=== PATIENT | male | born 1960 | race Caucasian/White ===

== ENCOUNTER 2021-06-10 20:51 | Inpatient (IN) ==
[2021-06-10 21:18] LABS: Hematocrit (blood only) 38.8 % (42-52); Hemoglobin 13.5 g/dL (14.0-18.0); Mean Corpuscular Hemoglobin 30.6 pg (25-34); Mean Corpuscular Hgb Conc 34.8 g/dL (32-36); Mean Platelet Volume 9.5 fL (7.4-10.4); Platelet Count 255 K/uL (130-400); RDW Coefficient of Variation 12.7 % (11.5-14.5); RDW Standard Deviation 40.7 fL (36.4-46.3); Red Blood Count 4.41 M/uL (4.7-6.1); White Blood Count 18.74 K/uL (4.8-10.8)
[2021-06-10 21:28] LABS: INR 1.1 (0.9-1.1); Partial Thromboplastin Time 26.2 Seconds (21.0-31.0); Prothrombin Time 11.4 Seconds (9.0-12.0)
[2021-06-10 21:32] LABS: Basophils # (auto) 0.03 K/uL (0-0.2); Basophils % (auto) 0.2 %; Eosinophils % (auto) 1.6 %; Immature Granulocytes # (auto) 0.32 K/uL (0.00-0.02); Immature Granulocytes % (auto) 1.7 %; Lymphocytes # (auto) 0.61 K/uL (1.2-3.4); Lymphocytes % (auto) 3.3 %; Monocytes # (auto) 1.11 K/uL (0.11-0.59); Monocytes % (auto) 5.9 %; Neutrophils # (auto) 16.37 K/uL (1.4-6.5); Neutrophils % (auto) 87.3 %; Polychromasia 1+
[2021-06-10] MEDS ORDERED: dexAMETHasone**PF** 10 MG/ML VIAL IV ONE (21:33)
[2021-06-10 21:39] LABS: Troponin I < 0.03 ng/ml (0-0.04)
[2021-06-10 21:45] LABS: Alanine Aminotransferase 18 U/L (7-52); Albumin Globulin Ratio 0.9 (0.9-2); Albumin Level 3.3 gm/dl (3.4-5.0); Alkaline Phosphatase 77 U/L (34-104); Anion Gap 13 (3-11); Aspartate Aminotransferase 22 U/L (13-39); BUN Creatinine Ratio 26.1 (10-20); Bilirubin,Total 0.7 mg/dl (0.2-1.0); Blood Urea Nitrogen 18 mg/dl (6-23); Calcium 9.4 mg/dl (8.5-10.1); Carbon Dioxide 21 mmol/L (21-32); Chloride 98 mmol/L (98-107); Creatinine Clr Calc Pharmacy 116.1 ml/min; Est GFR (African American) 118.8 ml/min; Est GFR (Non-African American) 102.5 ml/min; Globulin 3.8 gm/dl (2.5-4.0); Glucose 116 mg/dl (70-99(Fasting)); Magnesium 1.4 mg/dl (1.7-2.4); Potassium 4.2 mmol/L (3.5-5.1); Sodium 132 mmol/L (136-145); Total Protein 7.1 gm/dl (6.0-8.3)
[2021-06-10] MEDS ORDERED: SODIUM CHLORIDE 0.9% 1000ML 1,000 ML IV SCH (22:30)
--- NOTE | 2021-06-10 23:00 | Emergency Department Note ---
History of Present Illness General Chief complaint: Referred by Doctor Stated complaint: SOB, COUGH, PNEUMONIA, BERNARD JACQUES PRICE RFRD Time Seen by Provider: 06/10/21 21:13 Source: patient Mode of arrival: ambulatory Limitations: no limitations History of Present Illness Provider complaint: Shortness of breath, recent pneumonia Onset (ago): day(s) 10 Treatments prior to arrival: other This is a 61-year-old male who presents due to concern for persistent shortness of breath and cough. Patient states his symptoms began 10 days ago, and he called his PCP was started on a course of azithromycin. Patient states he completed that course without improvement. He states after this he was placed on a second antibiotic and a course of steroids. Patient states he finished the course of steroids and was still taking the antibiotics but did not feel improved. Patient states symptoms feel similar to when he had pneumonia previously given cough and shortness of breath. Patient denies hemoptysis. States initially had mild URI symptoms including nasal congestion and rhinorrhea however no sore throat, denies fevers and chills. He denies any GI symptoms including nausea, vomiting, abdominal pain, or diarrhea. Patient admits to slight chest tightness although no overt pain. Patient is vaccinated against Covid. Did not receive his vaccination for influenza. Patient denies any prior history of asthma or COPD, no history of tobacco abuse. Patient does not wear home oxygen. Pt seen during a time of high acuity and national emergency pandemic while wearing PPE. Home Medications Medication Instructions Recorded Confirmed Type aspirin 81 mg tablet,delayed 81 mg PO QAM 06/10/21 06/10/21 History release benzonatate 100 mg capsule 200 mg PO TID PRN 06/10/21 06/10/21 History carvedilol 6.25 mg tablet 6.25 mg PO BID 06/10/21 06/10/21 History cefuroxime axetil 500 mg tablet 500 mg PO BID 06/10/21 06/10/21 History clopidogrel 75 mg tablet 75 mg PO QAM 06/10/21 06/10/21 History dulaglutide 1.5 mg/0.5 mL 1.5 mg SUBCUT WK 06/10/21 06/10/21 History subcutaneous pen injector (Trulicity) empagliflozin 10 mg tablet 10 mg PO QAM 06/10/21 06/10/21 History (Jardiance) evolocumab 140 mg/mL subcutaneous 140 mg SUBCUT .2XMONTHLY 06/10/21 06/10/21 History pen injector (Celestina Salinas) fluticasone propionate 100 1 inh INHALATION BID 06/10/21 06/10/21 History mcg/actuation blister powder for inhalation (Flovent Diskus) hydroxychloroquine 200 mg tablet 200 mg PO BID 06/10/21 06/10/21 History icosapent ethyl 1 gram capsule 2 g PO BID 06/10/21 06/10/21 History lisinopril 20 mg tablet 20 mg PO QPM 06/10/21 06/10/21 History metformin 500 mg tablet,extended 1,000 mg PO BID 06/10/21 06/10/21 History release 24 hr pantoprazole 40 mg tablet,delayed 40 mg PO QPM 06/10/21 06/10/21 History release Allergies Allergy/AdvReac Type Severity Reaction Status Date / Time No Known Allergies Allergy Unverified 06/10/21 23:30 Past Med/Surg History Medical History (Updated 06/12/21 @ 03:07 by Bonnie Lopez DO) Diabetes GERD (gastroesophageal reflux disease) Family History (Updated 06/11/21 @ 00:13 by Juli Thomas DO) Other No significant family history Social History (Updated 06/11/21 @ 00:14 by Juli Thomas DO) Smoking Status: Never smoker Hx Alcohol Use: Yes Hx Substance Use: No Preferred Language: Persian Communication Ability: Effective Customer Assistance Associate Required: No Beliefs That Will Affect Care: None Current Living Situation: Spouse Feels Safe at Home: Yes Assistive Devices: Oxygen - Continuous Review of Systems A total of 10 systems reviewed and were otherwise negative All systems reviewed & are unremarkable except as noted in HPI & below Physical Exam Vital Signs Vital Signs - 24 hr 06/10/21 20:56 06/10/21 21:05 06/10/21 21:18 Temperature 36.5 C Temperature Source Temporal Artery Scan Pulse Rate 115 H Pulse Rate [Apical] 117 H Pulse Rate from SpO2 Sensor Respiratory Rate 24 22 Respiratory Effort / Characteristics Non-Labored Spontaneous Respiratory Depth Normal Blood Pressure 116/78 Blood Pressure [Right Arm] 135/84 Blood Pressure Mean 90 Blood Pressure Mean [Right Arm] 101 Pulse Oximetry 83 L 84 L 92 Oxygen Delivery Method Room Air Nasal Cannula Nasal Cannula Oxygen Flow Rate 2 6 Sepsis New/Unexplained Change in Mental Status N/A Sepsis Action Taken by Nursing No Action Required 06/10/21 21:20 06/10/21 21:30 06/10/21 21:40 Temperature Temperature Source Pulse Rate 110 H 107 H 103 H Pulse Rate [Apical] Pulse Rate from SpO2 Sensor 109 H 109 H 104 H Respiratory Rate 24 28 H 26 H Respiratory Effort / Characteristics Respiratory Depth Blood Pressure Blood Pressure [Right Arm] Blood Pressure Mean Blood Pressure Mean [Right Arm] Pulse Oximetry 93 91 94 Oxygen Delivery Method Nasal Cannula Oxygen Flow Rate 4.5 Sepsis New/Unexplained Change in Mental Status Sepsis Action Taken by Nursing 06/10/21 21:50 06/10/21 22:00 06/10/21 22:10 Temperature Temperature Source Pulse Rate 104 H 110 H 106 H Pulse Rate [Apical] Pulse Rate from SpO2 Sensor 101 H 106 H 106 H Respiratory Rate 25 H 30 H 29 H Respiratory Effort / Characteristics Respiratory Depth Blood Pressure Blood Pressure [Right Arm] Blood Pressure Mean Blood Pressure Mean [Right Arm] Pulse Oximetry 94 92 90 Oxygen Delivery Method Nasal Cannula Nasal Cannula Oxygen Flow Rate 4.5 4.5 Sepsis New/Unexplained Change in Mental Status Sepsis Action Taken by Nursing 06/10/21 22:20 06/10/21 22:30 06/10/21 22:40 Temperature Temperature Source Pulse Rate 108 H 106 H 106 H Pulse Rate [Apical] Pulse Rate from SpO2 Sensor 110 H 104 H 99 H Respiratory Rate 27 H 29 H 30 H Respiratory Effort / Characteristics Respiratory Depth Blood Pressure Blood Pressure [Right Arm] Blood Pressure Mean Blood Pressure Mean [Right Arm] Pulse Oximetry 93 93 94 Oxygen Delivery Method Nasal Cannula Oxygen Flow Rate 4.5 Sepsis New/Unexplained Change in Mental Status Sepsis Action Taken by Nursing GENERAL: alert, unwell appearing, well nourished, no distress, non-toxic EYE EXAM: normal conjunctiva, PERRL and EOM's grossly intact OROPHARYNX: no exudate, no erythema, lips, buccal mucosa, and tongue normal and mucous membranes are moist NECK: supple, no nuchal rigidity, no adenopathy, non-tender LUNGS: Clear to auscultation. Normal chest wall mechanics, no w/r/r HEART: no murmurs, S1 normal and S2 normal ABDOMEN: abdomen soft, non-tender, normo-active bowel sounds, no masses, no rebound or guarding. BACK: Back is symmetrical on inspection and there is no deformity, no midline tenderness, no CVA tenderness. SKIN: no rashes and no bruising UPPER EXTREMITIES: upper extremities are grossly normal. FROM, nml pulses b/l. LOWER EXTREMITIES: No pitting edema. FROM, nml pulses b/l. NEURO EXAM: Normal sensorium, cranial nerves II-XII grossly intact, normal speech, no gross weakness of arms, no gross weakness of legs. Gross sensation intact. Course Course 2220: Patient maintaining oxygen on 5 to 6 L via nasal cannula. Patient updated on results. Discussed with him need for additional inpatient evaluation and respiratory support. He verbalized understanding. 2252: Case discussed with hospitalist for additional evaluation and management. I did call respiratory and asked them to come trial the patient on high flow nasal cannula given he did have worsening tachypnea despite maintaining oxygenation on nasal cannula. Patient states he does feel short of breath despite oxygen placement and improvement of hypoxia. 2345: Patient reports feeling improved with decreased work of breathing on high flow nasal cannula. Vital signs stable. Administered Medications Aspirin (Aspirin 81 Mg Ectab) 81 mg PO QAM [facility] Stop: 07/11/21 08:59 Last Admin: 06/11/21 07:58 Dose: 81 mg Documented by: [id number] Baricitinib (Baricitinib 2 Mg Tab) 4 mg PO DAILY [facility] Stop: 06/24/21 09:01 Last Admin: 06/11/21 10:09 Dose: 4 mg Documented by: [id number] Carvedilol (Carvedilol 6.25 Mg Tab) 6.25 mg PO BID [facility] Stop: 07/11/21 08:59 Last Admin: 06/11/21 22:36 Dose: 6.25 mg Documented by: [id number] Admin: 06/11/21 08:55 Dose: 6.25 mg Documented by: [id number] Insulin Aspart (Insulin Aspart Per Unit) 0 units SC ACHS [facility] Stop: 07/11/21 07:29 Last Admin: 06/11/21 22:39 Dose: 1 units Documented by: [id number] Cosigned by: [id number] Admin: 06/11/21 12:46 Dose: 4 units Documented by: [id number] Cosigned by: [id number] Admin: 06/11/21 12:24 Dose: 4 units Documented by: [id number] Cosigned by: [id number] Admin: 06/11/21 09:07 Dose: 3 units Documented by: [id number] Cosigned by: [id number] Insulin Glargine (Insulin Glargine Solostar 100 Units/Ml 3 Ml Pen) 5 units SC BID [facility] Stop: 07/11/21 08:59 Last Admin: 06/11/21 22:37 Dose: 5 units Documented by: [id number] Cosigned by: [id number] Admin: 06/11/21 09:08 Dose: 5 units Documented by: [id number] Cosigned by: [id number] Lisinopril (Lisinopril 20 Mg Tab) 20 mg PO QPM [facility] Stop: 07/11/21 20:59 Last Admin: 06/11/21 22:37 Dose: 20 mg Documented by: [id number] Pantoprazole Sodium (Pantoprazole 40 Mg Tab) 40 mg PO QPM [facility] Stop: 07/11/21 20:59 Last Admin: 06/11/21 22:37 Dose: 40 mg Documented by: [id number] Rivaroxaban (Rivaroxaban 15 Mg Tab) 15 mg PO BID [facility] Stop: 07/01/21 21:01 Last Admin: 06/11/21 22:37 Dose: 15 mg Documented by: [id number] Admin: 06/11/21 12:46 Dose: 15 mg Documented by: [id number] Discontinued Medications Clopidogrel Bisulfate (Clopidogrel Bisulfate 75 Mg Tab) 75 mg PO QAM [facility] Stop: 07/11/21 08:59 Last Admin: 06/11/21 07:58 Dose: 75 mg Documented by: [id number] Dexamethasone Sodium Phosphate (DexamethasonePf 10 Mg/Ml Vial) 6 mg IV NOW ONE Stop: 06/10/21 21:34 Last Admin: 06/10/21 21:41 Dose: 6 mg Documented by: [id number] Enoxaparin Sodium (Enoxaparin 80 Mg/0.8 Ml Syr) 80 mg SQ Q12H [facility] Stop: 07/11/21 01:59 Last Admin: 06/11/21 03:32 Dose: Not Given Documented by: [id number] Sodium Chloride (Nss 1000ml) 1,000 mls @ 200 mls/hr IV .Q5H [facility] Stop: 07/10/21 22:29 Last Infusion: 06/11/21 03:24 Dose: 0 mls/hr Documented by: [id number] Admin: 06/10/21 22:23 Dose: 200 mls/hr Documented by: [id number] Magnesium Sulfate/Dextrose (Magnesium Sulfate / D5w) 1 gm in 100 mls @ 50 mls/hr IV Q2H [facility] Stop: 06/11/21 02:03 Last Infusion: 06/11/21 03:22 Dose: 0 mls/hr Documented by: [id number] Admin: 06/11/21 00:55 Dose: 50 mls/hr Documented by: [id number] Ioversol (Optiray 320 125ml) 120 ml IV ONCE ONE Stop: 06/11/21 10:44 Last Admin: 06/11/21 10:43 Dose: 120 ml Documented by: [id number] Critical Care Time Critical Care Time: Yes Total Critical Care Time: 35 Critical care of 35 min performed to assess and manage high likelihood of life- threatening acute respiratory failure with hypoxia, involving labs and imaging performed with assessment to evaluate acute respiratory failure with hypoxia diagnosis with frequent reassessment. This time includes bedside time, treatment discussions with patient/family/consultants, documentation time and excludes procedure time. Medical Decision Making Differential Diagnosis Differential diagnoses includes but is not limited to pneumonia, bronchitis, COPD/Asthma exacerbation, pneumothorax, pulmonary embolism, congestive heart failure, acute coronary syndrome Medical Records Attestation: I reviewed the patient's medical records. Home Medications Current Medication List: was personally reviewed by me Laboratory Data Attestation: I reviewed the patient's lab results. Result diagrams: 06/11/21 05:33 06/11/21 05:33 Lab Results 06/10/21 06/10/21 06/10/21 Range/Units 21:05 21:07 21:07 WBC 18.74 H (4.8-10.8) K/uL RBC 4.41 L (4.7-6.1) M/uL Hgb 13.5 L (14.0-18.0) g/dL Hct 38.8 L (42-52) % MCV 88.0 (80-100) fL MCH 30.6 (25-34) pg MCHC 34.8 (32-36) g/dL RDW Std Deviation 40.7 (36.4-46.3) fL RDW Coeff of Eddie 12.7 (11.5-14.5) % Plt Count 255 (130-400) K/uL MPV 9.5 (7.4-10.4) fL Immature Gran % (Auto) 1.7 % Neut % (Auto) 87.3 % Lymph % (Auto) 3.3 % [place] % (Auto) 5.9 % Eos % (Auto) 1.6 % Baso % (Auto) 0.2 % Neut # (Auto) 16.37 H (1.4-6.5) K/uL Lymph # (Auto) 0.61 L (1.2-3.4) K/uL [place] # (Auto) 1.11 H (0.11-0.59) K/uL Eos # (Auto) 0.30 (0-0.5) K/uL Baso # (Auto) 0.03 (0-0.2) K/uL Immature Gran # (Auto) 0.32 H (0.00-0.02) K/uL Polychromasia 1+ PT 11.4 (9.0-12.0) Seconds INR 1.1 (0.9-1.1) APTT 26.2 (21.0-31.0) Seconds PTT Ratio 1.0 Sodium (136-145) mmol/L Potassium (3.5-5.1) mmol/L Chloride (98-107) mmol/L Carbon Dioxide (21-32) mmol/L Anion Gap (3-11) BUN (6-23) mg/dl Creatinine (0.6-1.4) mg/dl Est Cr Clr Drug Dosing ml/min Est GFR ( Amer) ml/min Est GFR (Non-Af Amer) ml/min BUN/Creatinine Ratio (10-20) Glucose (70-99(Fasting)) mg/dl Calcium (8.5-10.1) mg/dl Magnesium (1.7-2.4) mg/dl Total Bilirubin (0.2-1.0) mg/dl AST (13-39) U/L ALT (7-52) U/L Alkaline Phosphatase (34-104) U/L Troponin I (0-0.04) ng/ml C-Reactive Protein (0-0.5) mg/dl Total Protein (6.0-8.3) gm/dl Albumin (3.4-5.0) gm/dl Globulin (2.5-4.0) gm/dl Albumin/Globulin Ratio (0.9-2) Procalcitonin (0-0.5) ng/ml SARS-CoV-2, RNA, NAAT POSITIVE A* (NEGATIVE) 06/10/21 06/10/21 06/10/21 Range/Units 21:07 23:07 23:07 WBC (4.8-10.8) K/uL RBC (4.7-6.1) M/uL Hgb (14.0-18.0) g/dL Hct (42-52) % MCV (80-100) fL MCH (25-34) pg MCHC (32-36) g/dL RDW Std Deviation (36.4-46.3) fL RDW Coeff of Eddie (11.5-14.5) % Plt Count (130-400) K/uL MPV (7.4-10.4) fL Immature Gran % (Auto) % Neut % (Auto) % Lymph % (Auto) % [place] % (Auto) % Eos % (Auto) % Baso % (Auto) % Neut # (Auto) (1.4-6.5) K/uL Lymph # (Auto) (1.2-3.4) K/uL [place] # (Auto) (0.11-0.59) K/uL Eos # (Auto) (0-0.5) K/uL Baso # (Auto) (0-0.2) K/uL Immature Gran # (Auto) (0.00-0.02) K/uL Polychromasia PT (9.0-12.0) Seconds INR (0.9-1.1) APTT (21.0-31.0) Seconds PTT Ratio Sodium 132 L (136-145) mmol/L Potassium 4.2 (3.5-5.1) mmol/L Chloride 98 (98-107) mmol/L Carbon Dioxide 21 (21-32) mmol/L Anion Gap 13 H (3-11) BUN 18 (6-23) mg/dl Creatinine 0.69 (0.6-1.4) mg/dl Est Cr Clr Drug Dosing 116.1 ml/min Est GFR ( Amer) 118.8 ml/min Est GFR (Non-Af Amer) 102.5 ml/min BUN/Creatinine Ratio 26.1 H (10-20) Glucose 116 H (70-99(Fasting)) mg/dl Calcium 9.4 (8.5-10.1) mg/dl Magnesium 1.4 L (1.7-2.4) mg/dl Total Bilirubin 0.7 (0.2-1.0) mg/dl AST 22 (13-39) U/L ALT 18 (7-52) U/L Alkaline Phosphatase 77 (34-104) U/L Troponin I < 0.03 (0-0.04) ng/ml C-Reactive Protein 18.92 H (0-0.5) mg/dl Total Protein 7.1 (6.0-8.3) gm/dl Albumin 3.3 L (3.4-5.0) gm/dl Globulin 3.8 (2.5-4.0) gm/dl Albumin/Globulin Ratio 0.9 (0.9-2) Procalcitonin 0.20 (0-0.5) ng/ml SARS-CoV-2, RNA, NAAT (NEGATIVE) Imaging Data My Impression: X-ray: I interpreted the following studies. Chest: A single view study of the chest was reviewed and was negative for cardiomegaly, effusion, pulmonary edema, or wide mediastinum. Bilateral lower lobe evolving infiltrates suggestive of pneumonia. MDM Narrative This is a 61-year-old male who presents due to concern for persistent trouble breathing despite 2 outpatient courses of antibiotics for possible pneumonia. Patient with no prior pulmonary history, and is vaccinated against Covid. Patient found to have significant hypoxia here on presentation. Patient started on supplemental oxygen with improvement, however patient continued to feel short of breath. Chest x-ray suggestive of bilateral pneumonia. Patient found to have a leukocytosis and elevated CRP, procalcitonin reassuring. Nasal swab sent and was positive for Covid. This is likely the etiology of the patient's ongoing symptoms and why he did not respond to antibiotics and steroids as an outpatient. Patient was started on IV Decadron. Patient was eventually changed to high flow nasal cannula due to persistent symptoms despite improved oxygenation. Patient denies any recent leg swelling or calf tenderness. I have a lower suspicion for PE at this time. I suspect the leukocytosis is more likely related to the viral process and less likely a secondary bacterial infection, especially given recent antibiotics. No evidence of MARA. Patient started on magnesium supplementation in addition. Patient remained hemodynamically stable while emergency room. He was made aware of all results and was in agreement with plan. Case discussed with hospitalist. An order was placed for continuous cardiac monitoring. The monitor shows a rate of _88_ with _normal sinus_ rhythm. Impression & Plan Acute dyspnea, COVID-19, Acute respiratory failure with hypoxia, Hypomagnesemia Discharge Plan Visit Data Chief Complaint: Referred by Doctor Stated Complaint: SOB, COUGH, PNEUMONIA, BERNARD CRONER PA-C RFRD Discharge Problem: Acute dyspnea, COVID-19, Acute respiratory failure with hypoxia, Hypomagnesemia Patient Disposition: Admitted As Inpatient Discharge Instructions Interventions: ED Discharge Assessment Last Done: 06/11/21 01:15
[2021-06-11] MEDS ORDERED: MAGNESIUM SULFATE / D5W 1 GM/100 ML BAG IV STA (00:04)
--- NOTE | 2021-06-11 00:20 | History & Physical Report ---
Date of Service June 11, 2021 Assessment & Plan (1) COVID-19: Plan: 61yo C male with history of DM presenting with Covid-19 PNA, hypoxia. Patient has received Covid-19 vaccinations x 2, has not yet received booster. He is presenting with 10 days of persistent and progressive cough and SOB. Hypoxic at home to 71%, in the 80's here now with improved respiratory status and saturation on high flow NC 40 L/min, 40% FiO2. CXR with bilateral patchy airspace disease Labs are significant for elevated WBC of 18.74 (recently on steroids), lymphopenia, mild hyponatremia with [id number] Elevated CRP of 18.92 Procalcitonin =0.2 Patient reports recently having the flu in April, feels like he never quite recovered. He also reports having PNA 7x in the past -Admit to medical with telemetry -Check BNP, Ddimer, Ferritin, Fibrinogen and LDH -Repeat Procalcitonin ordered for 06/12/20 AM to aide in decision re: antibiotics -Maintain isolation precautions for Covid-19 -Supplemental O2 as needed - presently on HFNC -Prone positioning encouraged to aide with oxygenation -Dexamethasone 6mg IV daily - dose administered in ER -Baricitinib should patient's O2 requirement increase -Lovenox 1mg/kg BID for DVT ppx -Tylenol PRN pain/fever -Tessalon PRN cough -Zofran PRN nausea -Hold Hydroxychloroquine for now (2) GERD (gastroesophageal reflux disease): Plan: Chronic. Well controlled -Continue Protonix 40mg po daily (3) Diabetes: Plan: Blood sugar adequately controlled at present, 116 -Hold Metformin and Jardiance -Trulicity 1.5mg weekly -Lantus 5u BID -ISS -Consider glycemic management consultation if blood sugars spike with dexamethasone use (4) CAD (coronary artery disease): Plan: ?history of CAD - history not available in chart -Continue ASA, Plavix, Carvedilol and Lisinopril -Confirm history with patient Plan: F/E/N - 1L NSS given in ER, will hold additional fluids for now, encourage PO intake as tolerated. Mg low at 1.4, replete with 2gm IV, CC diet as tolerated Ppx - Lovenox 1mg/kg BID, check d-dimer Code - Full per discussion with patient Dispo - Admit to medical with telemetry History of Present Illness Chief Complaint: shortness of breath Primary Care Provider: DO Taylor Ojedarubi Brush is a pleasant 61yo C male with history of DM presenting with Covid-19 PNA and hypoxia. Patient is vaccinated x 2 for Covid-19. He has not yet received his booster shot. He reports preston influenza in April after which he had a persistent cough. Over the last 10 days he has had worsening cough and shortness of breath. He states that his lungs feel stiff and it is difficult to take a deep breath. Patient contacted his PCP with these complaints last week and was prescribed a Z-pack course of Azithromycin with no improvement. He was then started on Flovent and Cefuroxime. Patient reports having a single fever appx 5 days ago but has not been febrile since. He denies chest pain, nausea, vomiting. He had some mild diarrhea which has improved. No additional complaints at this time. Patient's oxygen saturation was reportedly 71% at home prior to arrival. Upon arrival to the ER patient was found to be tachypneic with RR of 24 saturating 83% on room air. He was placed on supplemental O2 by nasal cannula with mild improvement. Is presently on High Flow Nasal Cannula 40L/min, 40% FiO2. He reports feeling more comfortable, is breathing easier and is less tachypneic on current O2 settings. ER Course: HFNC, Dexamethasone 6mg IV, NSS x 1L Allergies Allergy/AdvReac Type Severity Reaction Status Date / Time No Known Allergies Allergy Unverified 06/10/21 23:30 Home Medications Medication Instructions Recorded Confirmed Type aspirin 81 mg tablet,delayed 81 mg PO QAM 06/10/21 06/10/21 History release benzonatate 100 mg capsule 200 mg PO TID PRN 06/10/21 06/10/21 History carvedilol 6.25 mg tablet 6.25 mg PO BID 06/10/21 06/10/21 History cefuroxime axetil 500 mg tablet 500 mg PO BID 06/10/21 06/10/21 History clopidogrel 75 mg tablet 75 mg PO QAM 06/10/21 06/10/21 History dulaglutide 1.5 mg/0.5 mL 1.5 mg SUBCUT WK 06/10/21 06/10/21 [facility] empagliflozin 10 mg tablet 10 mg PO QAM 06/10/21 06/10/21 History (Jardiance) evolocumab 140 mg/mL subcutaneous 140 mg SUBCUT .2XMONTHLY 06/10/21 06/10/21 History pen injector (Celestina Salinas) fluticasone propionate 100 1 inh INHALATION BID 06/10/21 06/10/21 History mcg/actuation blister powder for inhalation (Flovent Diskus) hydroxychloroquine 200 mg tablet 200 mg PO BID 06/10/21 06/10/21 History icosapent ethyl 1 gram capsule 2 g PO BID 06/10/21 06/10/21 History lisinopril 20 mg tablet 20 mg PO QPM 06/10/21 06/10/21 History metformin 500 mg tablet,extended 1,000 mg PO BID 06/10/21 06/10/21 History release 24 hr pantoprazole 40 mg tablet,delayed 40 mg PO QPM 06/10/21 06/10/21 History release Past Med/Surg History Medical History (Updated 06/11/21 @ 00:30 by Juli Thomas DO) Diabetes GERD (gastroesophageal reflux disease) Family History (Updated 06/11/21 @ 00:13 by Juli Thomas DO) Other No significant family history Social History (Updated 06/11/21 @ 00:14 by Juli Thomas DO) Smoking Status: Never smoker Hx Alcohol Use: Yes Hx Substance Use: No Preferred Language: Bulgarian Feels Safe at Home: Yes Review of Systems Review of Systems: All systems reviewed & are unremarkable except as noted in HPI & below +Cough +SOB Physical Exam Physical Exam: General: patient resting comfortably, NAD, non-toxic in appearance, AA&O x 4 Skin: warm, dry, intact, no rashes or lesions HEENT: NC/AT, PERRL, EOMI, anicteric sclera, conjunctiva without injection, external ear normal to inspection and nontender, nares patent, moist mucus membranes, dentition intact, no oropharyngeal lesions, neck supple, trachea midline, no LAD, no thyromegaly, no JVD Heart: +S1/S2, regular, no m/r/g Lungs: equal air entry bilaterally, no rales/rhonchi/wheezes Abd: +BS, soft, NT/ND, no masses/organomegaly/ascites Ext: warm, 2+ pulses in UE/LE bilaterally, no clubbing/cyanosis or edema Neuro: nonfocal, patient AA&O x 4, speech intact, no facial droop, moving all extremities on command with equal strength 5/5 Results & Data Results & Data ([facility]) Vital Signs (Past 12 Hours) Vital Signs Temp Pulse Pulse Resp BP BP Pulse Ox 06/10/21 23:00 108 H 25 H 118/77 94 06/10/21 22:40 106 H 30 H 94 06/10/21 22:30 106 H 29 H 93 06/10/21 22:20 108 H 27 H 93 06/10/21 22:10 106 H 29 H 90 06/10/21 22:00 110 H 30 H 92 06/10/21 21:50 104 H 25 H 94 06/10/21 21:40 103 H 26 H 94 06/10/21 21:30 107 H 28 H 91 06/10/21 21:20 110 H 24 93 06/10/21 21:18 117 H 22 135/84 92 06/10/21 21:05 84 L 06/10/21 20:56 36.5 C 115 H 24 116/78 83 L Laboratory Results Laboratory Results WBC 18.74 K/uL (4.8-10.8) H 06/10/21 21:07 RBC 4.41 M/uL (4.7-6.1) L 06/10/21 21:07 Hgb 13.5 g/dL (14.0-18.0) L 06/10/21 21:07 Hct 38.8 % (42-52) L 06/10/21 21:07 MCV 88.0 fL (80-100) 06/10/21 21:07 MCH 30.6 pg (25-34) 06/10/21 21:07 MCHC 34.8 g/dL (32-36) 06/10/21 21:07 RDW Std Deviation 40.7 fL (36.4-46.3) 06/10/21 21:07 RDW Coeff of Eddie 12.7 % (11.5-14.5) 06/10/21 21:07 Plt Count 255 K/uL (130-400) 06/10/21 21:07 MPV 9.5 fL (7.4-10.4) 06/10/21 21:07 Immature Gran % (Auto) 1.7 % 06/10/21 21:07 Neut % (Auto) 87.3 % 06/10/21 21:07 Lymph % (Auto) 3.3 % 06/10/21 21:07 Garden % (Auto) 5.9 % 06/10/21 21:07 Eos % (Auto) 1.6 % 06/10/21 21:07 Baso % (Auto) 0.2 % 06/10/21 21:07 Neut # (Auto) 16.37 K/uL (1.4-6.5) H 06/10/21 21:07 Lymph # (Auto) 0.61 K/uL (1.2-3.4) L 06/10/21 21:07 Garden # (Auto) 1.11 K/uL (0.11-0.59) H 06/10/21 21:07 Eos # (Auto) 0.30 K/uL (0-0.5) 06/10/21 21:07 Baso # (Auto) 0.03 K/uL (0-0.2) 06/10/21 21:07 Immature Gran # (Auto) 0.32 K/uL (0.00-0.02) H 06/10/21 21:07 Polychromasia 1+ 06/10/21 21:07 PT 11.4 Seconds (9.0-12.0) 06/10/21 21:07 INR 1.1 (0.9-1.1) 06/10/21 21:07 APTT 26.2 Seconds (21.0-31.0) 06/10/21 21:07 PTT Ratio 1.0 06/10/21 21:07 Sodium 132 mmol/L (136-145) L 06/10/21 21:07 Potassium 4.2 mmol/L (3.5-5.1) 06/10/21 21:07 Chloride 98 mmol/L (98-107) 06/10/21 21:07 Carbon Dioxide 21 mmol/L (21-32) 06/10/21 21:07 Anion Gap 13 (3-11) H 06/10/21 21:07 BUN 18 mg/dl (6-23) 06/10/21 21:07 Creatinine 0.69 mg/dl (0.6-1.4) 06/10/21 21:07 Est Cr Clr Drug Dosing 116.1 ml/min 06/10/21 21:07 Est GFR ( Amer) 118.8 ml/min 06/10/21 21:07 Est GFR (Non-Af Amer) 102.5 ml/min 06/10/21 21:07 BUN/Creatinine Ratio 26.1 (10-20) H 06/10/21 21:07 Glucose 116 mg/dl (70-99(Fasting)) H 06/10/21 21:07 Calcium 9.4 mg/dl (8.5-10.1) 06/10/21 21:07 Magnesium 1.4 mg/dl (1.7-2.4) L 06/10/21 21:07 Total Bilirubin 0.7 mg/dl (0.2-1.0) 06/10/21 21:07 AST 22 U/L (13-39) 06/10/21 21:07 ALT 18 U/L (7-52) 06/10/21 21:07 Alkaline Phosphatase 77 U/L (34-104) 06/10/21 21:07 Troponin I < 0.03 ng/ml (0-0.04) 06/10/21 21:07 C-Reactive Protein 18.92 mg/dl (0-0.5) H 06/10/21 23:07 Total Protein 7.1 gm/dl (6.0-8.3) 06/10/21 21:07 Albumin 3.3 gm/dl (3.4-5.0) L 06/10/21 21:07 Globulin 3.8 gm/dl (2.5-4.0) 06/10/21 21:07 Albumin/Globulin Ratio 0.9 (0.9-2) 06/10/21 21:07 Procalcitonin 0.20 ng/ml (0-0.5) 06/10/21 23:07 SARS-CoV-2, RNA, NAAT POSITIVE (NEGATIVE) A* 06/10/21 21:05 Diagnostic Findings CXR - by my interpretation - study with patchy, bilateral airspace opacities most present in lower lung pelayo No effusions, no pneumothorax ECG Additional Comments: EKG with ST at 111, PVC/fusion complexes present, normal axis, [place]=19, QRS=98. [id number]=[id number] Code Status & VTE Plan VTE Prophylaxis Plan VTE Prophylaxis will be ordered: Yes PG Care Time/CCT Total # of Minutes Spent Total Time Spent with Patient: Total time spent is greater than 50% in coordination of care (as documented) at patient's floor/unit and/or counseling patient: Coding Level of Care Code 80249 Initial Inpt Care Lvl 3 Diagnoses GERD (gastroesophageal reflux disease) K21.9 Diabetes E11.9 COVID-19 U07.1 CAD (coronary artery disease) I25.10
[2021-06-11] MEDS ORDERED: GLUCAGON FOR INJ 1 MG VIAL SQ PRN (01:40)
[2021-06-11] MEDS ORDERED: GLUCOSE 10 TABS/TUBE PO PRN (01:40)
[2021-06-11] MEDS ORDERED: DEXTROSE 50% 50 ML SYRINGE IV PRN (01:40)
[2021-06-11] MEDS ORDERED: CARBOHYDRATES FOR HYPOGLYCEMIA PO PRN (01:40)
[2021-06-11] MEDS ORDERED: ONDANSETRON INJ 2 MG/ML 2 ML VIAL IV PRN (01:40)
[2021-06-11] MEDS ORDERED: ACETAMINOPHEN 325 MG TAB PO PRN (01:40)
[2021-06-11] MEDS ORDERED: GLUCOSE 40% GEL 15 GM TUBE PO PRN (01:40)
[2021-06-11] MEDS ORDERED: BENZONATATE 100 MG CAPSULE PO PRN (01:40)
[2021-06-11] MEDS ORDERED: ENOXAPARIN 80 MG/0.8 ML SYR SQ SCH (02:00)
[2021-06-11 06:08] LABS: Fibrinogen 842 mg/dl (184-400)
[2021-06-11 06:54] LABS: D Dimer 29080 ug/L FEU (0-500)
--- NOTE | 2021-06-11 07:21 | XRay Report ---
XR chest 1V portable CLINICAL HISTORY: Shortness of breath. COMPARISON STUDY: No previous studies for comparison. FINDINGS: Lung volumes are normal. No pneumothorax or pleural effusion is present. Mild cardiomegaly is noted. Moderate bilateral airspace opacities are present. There is no evidence for pulmonary edema . Both ally are enlarged. IMPRESSION: 1. Moderate bilateral airspace opacities suggestive of viral pneumonia. Radiographic follow-up to ens ure resolution is recommended. 2. Bilateral hilar enlargement. This may be due to reactive lymphadenopathy but should be assessed on follow-up chest radiographs. ACT 112: Negative or not required by law. Electronically signed by: Simone Alejandre M.D. 06/11/2021 7:20 AM
[2021-06-11] MEDS: ASPIRIN 81 MG ECTAB PO SCH (07:58)
[2021-06-11] MEDS ORDERED: BARICITINIB COMMUNICATION ONE (08:39)
[2021-06-11] MEDS: carvediloL 6.25 MG TAB PO SCH ×2 (08:55→22:36)
[2021-06-11] MEDS ORDERED: CLOPIDOGREL BISULFATE 75 MG TAB PO SCH (09:00)
[2021-06-11] MEDS: INSULIN ASPART PER UNIT SC SCH ×4 (09:07→22:39)
[2021-06-11] MEDS: INSULIN GLARGINE SOLOSTAR 100 UNITS/ML 3 ML PEN SC SCH ×2 (09:08→22:37)
[2021-06-11 10:02] LABS: Albumin Globulin Ratio 0.9 (0.9-2); BUN Creatinine Ratio 37.9 (10-20); Bilirubin,Total 0.5 mg/dl (0.2-1.0); Creatinine Clr Calc Pharmacy 121.4 ml/min; Est GFR (African American) 120.9 ml/min; Est GFR (Non-African American) 104.3 ml/min; Globulin 3.4 gm/dl (2.5-4.0); Magnesium 1.9 mg/dl (1.7-2.4); Phosphorus 4.9 mg/dl (2.5-4.9); Potassium 4.4 mmol/L (3.5-5.1); Total Protein 6.4 gm/dl (6.0-8.3)
[2021-06-11] MEDS: BARICITINIB 2 MG TAB PO SCH (10:09)
[2021-06-11 10:24] LABS: Basophils # (auto) 0.01 K/uL (0-0.2); Basophils % (auto) 0.1 %; Hematocrit (blood only) 36.3 % (42-52); Hemoglobin 12.6 g/dL (14.0-18.0); Immature Granulocytes # (auto) 0.18 K/uL (0.00-0.02); Immature Granulocytes % (auto) 2.1 %; Lymphocytes # (auto) 0.58 K/uL (1.2-3.4); Lymphocytes % (auto) 6.7 %; Mean Corpuscular Hemoglobin 30.3 pg (25-34); Mean Corpuscular Hgb Conc 34.7 g/dL (32-36); Mean Corpuscular Volume 87.3 fL (80-100); Mean Platelet Volume 9.4 fL (7.4-10.4); Monocytes # (auto) 0.34 K/uL (0.11-0.59); Neutrophils # (auto) 7.49 K/uL (1.4-6.5); Neutrophils % (auto) 87.1 %; Platelet Count 216 K/uL (130-400); RDW Coefficient of Variation 12.8 % (11.5-14.5); RDW Standard Deviation 41.3 fL (36.4-46.3); Red Blood Count 4.16 M/uL (4.7-6.1)
[2021-06-11] MEDS ORDERED: OPTIRAY 320 125ml IV ONE (10:43)
--- NOTE | 2021-06-11 10:58 | CT Scan Report ---
CT ANGIOGRAM OF THE CHEST CLINICAL HISTORY: Dyspnea. Covid. COMPARISON STUDY: Chest x-ray dated 06/10/2021. TECHNIQUE: Following the IV administration of 120 cc of Optiray 320, CT angiogram of the chest was pe rformed from the upper abdomen to the thoracic inlet utilizing the pulmonary embolus protocol. Images are reviewed in the axial, sagittal, and coronal planes. 3-D MIPS images are created and assessed. I V contrast was administered without complication. A dose lowering technique was utilized adhering to the principles of ALARA. CT DOSE: 539.32 mGycm FINDINGS: Thyroid: Imaged portions of the thyroid gland are normal in size and attenuation. Thoracic aorta: There is mild atherosclerotic calcification of the thoracic aorta, which is normal in caliber and demonstrates standard 3-vessel arch anatomy. No dissection is seen. Pulmonary vasculature: The pulmonary trunk is normal in caliber. There are tiny subsegmental pulmonar y emboli present within peripheral branches of the right and left upper lobe pulmonary arteries. The main and lobar branches are clear. Heart: The heart is enlarged and without pericardial effusion. The coronary arteries are densely calc ified. Lungs and pleural spaces: There is multifocal groundglass consolidation seen throughout both lungs wi th a subpleural and lower lobe predominance. No pleural effusion is identified. The trachea and centr al airways are clear. Mediastinum: There is no mediastinal lymphadenopathy. Jonelle: Clear. Axillae: There is no axillary lymphadenopathy. Upper abdomen: Partially visualized upper abdominal viscera is within normal limits. Skeletal structures: No lytic or blastic bony lesions are seen. IMPRESSION: 1. There are numerous tiny subsegmental pulmonary emboli within branches of the upper lobe pulmonary arteries. 2. The central pulmonary vessels are clear. 3. Multifocal groundglass consolidation seen throughout both lungs is consistent with the reported hi story of a viral pneumonia. Radiographic follow-up to resolution is recommended. 4. Cardiomegaly with advanced coronary artery calcification. ACT 112: Negative or not required by law. Electronically signed by: Brennon Palmer M.D. 06/11/2021 10:56 AM
--- NOTE | 2021-06-11 12:18 | Hospitalist Progress Note ---
Date of Service June 11, 2021 Assessment & Plan (1) COVID-19: Plan: 61yo C male with history of DM presenting with Covid-19 PNA, hypoxia. Patient has received Covid-19 vaccinations x 2, has not yet received booster. He is presenting with 10 days of persistent and progressive cough and SOB. Hypoxic at home to 71%, in the 80's here on admission, improved respiratory status and saturation on high flow NC 40 L/min, 40% FiO2. CXR with bilateral patchy airspace disease Labs are significant for elevated WBC of 18.74 (recently on steroids), lymphopenia, mild hyponatremia with Dg=928 Elevated CRP of 18.92 Procalcitonin =0.2 Patient reports recently having the flu in April, feels like he never quite recovered. He also reports having PNA 7x in the past Has a h/o SLE on HQN D-dimer 29,000 after admission--> CTA Chest shows + bilat numerous subsegmental upper lobe PEs and extensive PNA Now on HFNC 40L and 40% FiO2 -Supplemental O2 as needed - presently on HFNC -Prone positioning encouraged to aide with oxygenation -continue Dexamethasone 6mg IV daily -no role for Remdesevir given prolonged course.7 days -start Baricitinib now that on HFNC and CRP high, no contraindications -Tylenol PRN pain/fever -Tessalon PRN cough -Zofran PRN nausea -Hold Hydroxychloroquine for now -follow CBC, CMP, CRP -add incentive spirometer and flutter valve -no role for abx at this point (2) Pulmonary emboli: Plan: as above, multiple bilat subsegmental PEs on CTA CHest trop neg, proBNP negative, D-dimer 29k start Xarelto 15mg po bid x 21 days and then convert to 20mg po qPM-would continue treatment for 3 months Check venous Dopplers--> negative. If had bleeding issues, would be ok to stop anticoagulation -no need for ECHO as HD stable and BNP, trop neg, ECG no rt heart strain--> not likely to have right heart strain (3) GERD (gastroesophageal reflux disease): Plan: Chronic. Well controlled -Continue Protonix 40mg po daily (4) Diabetes: Plan: Blood sugar adequately controlled, at risk for hyperglycemia due to steroids -Hold Metformin, Trulicity, and Jardiance -Lantus 5u BID -ISS-tighten down a bit with lower CF and CR pt reports A1C usually 6.3% (5) CAD (coronary artery disease): Plan: With a h/o MO in 2008, a total of 11 stents since that time, most recent in 10/2017 No cardiac issues ie angina or exercise intolerance prior to admission Discussed need for anticoagulation with his Bean Weigher, Dr. Edu Yost, at [facility] Presby--> ok to dc Plavix to avoid triple tx -Continue ASA, Carvedilol and Lisinopril on Repatha for cholesterol (6) Acute respiratory failure with hypoxia: Plan: 2/2 covid PNA as above continue suplemental O2 pulm toilet, add nebs prn (7) Hypomagnesemia: Plan: replaced and resolved (8) Metabolic acidosis: Plan: HCO3 down to 18 today, AG 14 Lactate normal could be from mild dehydration? follow, no IVFs to be given due to severe hypoxia and want to keep lungs dry (9) Hyponatremia: Plan: mildly low, Na+ improved today to 133 likely from dehydration Plan: Ppx - transition to Xarelto as above for PE Code - Full per discussion with patient Dispo - continued stay on telemetry Discussed care with his daughter Briana (PCU nurse) on the phone Admission and Anticipated Discharge Date Admission Date: June 11, 2021 Subjective Pt reports feeling better. Is on 40L and 40% FiO2. Denies nausea or vomiting, no diarrhea. Does not feel SOB despite requiring 40L HFNC. No trouble with bleeding in the past. I discussed his care with his Bean Weigher, Dr. Edu Yost from [facility], regarding his DAPT and need for Xarelto-Bean Weigher said ok to stop his Plavix. Discussed bilat subsegmental PEs on CTA Chest and need for AC. Tele with NSR, rates 80-100s Review of Systems Review of Systems: All systems reviewed & are unremarkable except as noted in HPI & below Physical Exam Constitutional: WD/WN, vitals as above Eyes: + anicteric sclerae ENMT: external ear and nose normal, oropharynx normal Neck: trachea midline, no thyromegaly Respiratory: normal respiratory effort; no cough Auscultation: + diminished lung sounds (throughout ) and + crackles (bilat lower lung pelayo); no rhonchi and no wheezes Cardiovascular: RRR, no murmur, no edema Chest (Breasts): Chest: normal inspection of chest Gastrointestinal (Abdomen): normal bowel sounds, soft, nontender, no he patosplenomegaly Musculoskeletal: Extremities: extremities normal to inspection; no cyanosis and no clubbing Skin: no rashes, warm and dry Neurologic: moves all extremities and awake; no focal motor deficits Psychiatric: A+Ox3, euthymic affect Lymphatic: no lymphedema Results & Data Results & Data ([facility]) Vital Signs (Past 12 Hours) Vital Signs Temp Pulse Pulse Resp BP Pulse Ox 06/11/21 12:13 36.5 C 106 H 18 117/71 95 06/11/21 08:00 85 06/11/21 07:22 85 17 91 06/11/21 04:02 90 16 89 L 06/11/21 01:45 36.6 C 112 H 24 129/81 89 L 06/11/21 01:35 95 H 06/11/21 01:30 94 H 19 96 06/11/21 00:30 36.9 C 92 H 22 116/79 96 Laboratory Results 06/11/21 06/11/21 06/11/21 Range/Units 19:54 16:38 11:36 WBC (4.8-10.8) K/uL RBC (4.7-6.1) M/uL Hgb (14.0-18.0) g/dL Hct (42-52) % MCV (80-100) fL MCH (25-34) pg MCHC (32-36) g/dL RDW Std Deviation (36.4-46.3) fL RDW Coeff of Eddie (11.5-14.5) % Plt Count (130-400) K/uL MPV (7.4-10.4) fL Immature Gran % (Auto) % Neut % (Auto) % Lymph % (Auto) % Blanco % (Auto) % Eos % (Auto) % Baso % (Auto) % Neut # (Auto) (1.4-6.5) K/uL Lymph # (Auto) (1.2-3.4) K/uL Blanco # (Auto) (0.11-0.59) K/uL Eos # (Auto) (0-0.5) K/uL Baso # (Auto) (0-0.2) K/uL Immature Gran # (Auto) (0.00-0.02) K/uL Fibrinogen (184-400) mg/dl D-Dimer (0-500) ug/L FEU Sodium (136-145) mmol/L Potassium (3.5-5.1) mmol/L Chloride (98-107) mmol/L Carbon Dioxide (21-32) mmol/L Anion Gap (3-11) BUN (6-23) mg/dl Creatinine (0.6-1.4) mg/dl Est Cr Clr Drug Dosing ml/min Est GFR ( Amer) ml/min Est GFR (Non-Af Amer) ml/min BUN/Creatinine Ratio (10-20) Glucose (70-99(Fasting)) mg/dl POC Glucose 166 H 141 H 179 H (70-99) mg/dl Lactate (0.4-2.0) mmol/L Calcium (8.5-10.1) mg/dl Phosphorus (2.5-4.9) mg/dl Magnesium (1.7-2.4) mg/dl Ferritin (8-388) ng/ml Total Bilirubin (0.2-1.0) mg/dl AST (13-39) U/L ALT (7-52) U/L Alkaline Phosphatase (34-104) U/L Lactate Dehydrogenase (86-244) U/L C-Reactive Protein (0-0.5) mg/dl B-Natriuretic Peptide (0-100) pg/ml Total Protein (6.0-8.3) gm/dl Albumin (3.4-5.0) gm/dl Globulin (2.5-4.0) gm/dl Albumin/Globulin Ratio (0.9-2) Procalcitonin (0-0.5) ng/ml Hepatitis C Ab Screen (Neg) 06/11/21 06/11/21 06/11/21 Range/Units 07:41 05:33 05:33 WBC 8.60 D (4.8-10.8) K/uL RBC 4.16 L (4.7-6.1) M/uL Hgb 12.6 L (14.0-18.0) g/dL Hct 36.3 L (42-52) % MCV 87.3 (80-100) fL MCH 30.3 (25-34) pg MCHC 34.7 (32-36) g/dL RDW Std Deviation 41.3 (36.4-46.3) fL RDW Coeff of Eddie 12.8 (11.5-14.5) % Plt Count 216 (130-400) K/uL MPV 9.4 (7.4-10.4) fL Immature Gran % (Auto) 2.1 % Neut % (Auto) 87.1 % Lymph % (Auto) 6.7 % Blanco % (Auto) 4.0 % Eos % (Auto) 0.0 % Baso % (Auto) 0.1 % Neut # (Auto) 7.49 H (1.4-6.5) K/uL Lymph # (Auto) 0.58 L (1.2-3.4) K/uL Blanco # (Auto) 0.34 (0.11-0.59) K/uL Eos # (Auto) 0.00 (0-0.5) K/uL Baso # (Auto) 0.01 (0-0.2) K/uL Immature Gran # (Auto) 0.18 H (0.00-0.02) K/uL Fibrinogen (184-400) mg/dl D-Dimer (0-500) ug/L FEU Sodium 133 L (136-145) mmol/L Potassium 4.4 (3.5-5.1) mmol/L Chloride 101 (98-107) mmol/L Carbon Dioxide 18 L (21-32) mmol/L Anion Gap 14 H (3-11) BUN 25 H (6-23) mg/dl Creatinine 0.66 (0.6-1.4) mg/dl Est Cr Clr Drug Dosing 121.4 ml/min Est GFR ( Amer) 120.9 ml/min Est GFR (Non-Af Amer) 104.3 ml/min BUN/Creatinine Ratio 37.9 H (10-20) Glucose 193 H (70-99(Fasting)) mg/dl POC Glucose 159 H (70-99) mg/dl Lactate (0.4-2.0) mmol/L Calcium 9.0 (8.5-10.1) mg/dl Phosphorus 4.9 (2.5-4.9) mg/dl Magnesium 1.9 (1.7-2.4) mg/dl Ferritin (8-388) ng/ml Total Bilirubin 0.5 (0.2-1.0) mg/dl AST 21 (13-39) U/L ALT 17 (7-52) U/L Alkaline Phosphatase 70 (34-104) U/L Lactate Dehydrogenase (86-244) U/L C-Reactive Protein (0-0.5) mg/dl B-Natriuretic Peptide (0-100) pg/ml Total Protein 6.4 (6.0-8.3) gm/dl Albumin 3.0 L (3.4-5.0) gm/dl Globulin 3.4 (2.5-4.0) gm/dl Albumin/Globulin Ratio 0.9 (0.9-2) Procalcitonin (0-0.5) ng/ml Hepatitis C Ab Screen (Neg) 06/11/21 06/11/21 06/11/21 Range/Units 05:32 05:26 05:26 WBC (4.8-10.8) K/uL RBC (4.7-6.1) M/uL Hgb (14.0-18.0) g/dL Hct (42-52) % MCV (80-100) fL MCH (25-34) pg MCHC (32-36) g/dL RDW Std Deviation (36.4-46.3) fL RDW Coeff of Eddie (11.5-14.5) % Plt Count (130-400) K/uL MPV (7.4-10.4) fL Immature Gran % (Auto) % Neut % (Auto) % Lymph % (Auto) % Blanco % (Auto) % Eos % (Auto) % Baso % (Auto) % Neut # (Auto) (1.4-6.5) K/uL Lymph # (Auto) (1.2-3.4) K/uL Blanco # (Auto) (0.11-0.59) K/uL Eos # (Auto) (0-0.5) K/uL Baso # (Auto) (0-0.2) K/uL Immature Gran # (Auto) (0.00-0.02) K/uL Fibrinogen (184-400) mg/dl D-Dimer (0-500) ug/L FEU Sodium (136-145) mmol/L Potassium (3.5-5.1) mmol/L Chloride (98-107) mmol/L Carbon Dioxide (21-32) mmol/L Anion Gap (3-11) BUN (6-23) mg/dl Creatinine (0.6-1.4) mg/dl Est Cr Clr Drug Dosing ml/min Est GFR ( Amer) ml/min Est GFR (Non-Af Amer) ml/min BUN/Creatinine Ratio (10-20) Glucose (70-99(Fasting)) mg/dl POC Glucose (70-99) mg/dl Lactate 0.9 (0.4-2.0) mmol/L Calcium (8.5-10.1) mg/dl Phosphorus (2.5-4.9) mg/dl Magnesium (1.7-2.4) mg/dl Ferritin (8-388) ng/ml Total Bilirubin (0.2-1.0) mg/dl AST (13-39) U/L ALT (7-52) U/L Alkaline Phosphatase (34-104) U/L Lactate Dehydrogenase (86-244) U/L C-Reactive Protein (0-0.5) mg/dl B-Natriuretic Peptide 96 (0-100) pg/ml Total Protein (6.0-8.3) gm/dl Albumin (3.4-5.0) gm/dl Globulin (2.5-4.0) gm/dl Albumin/Globulin Ratio (0.9-2) Procalcitonin (0-0.5) ng/ml Hepatitis C Ab Screen Neg (Neg) 06/11/21 06/11/21 06/11/21 Range/Units 05:26 05:26 05:26 WBC (4.8-10.8) K/uL RBC (4.7-6.1) M/uL Hgb (14.0-18.0) g/dL Hct (42-52) % MCV (80-100) fL MCH (25-34) pg MCHC (32-36) g/dL RDW Std Deviation (36.4-46.3) fL RDW Coeff of Eddie (11.5-14.5) % Plt Count (130-400) K/uL MPV (7.4-10.4) fL Immature Gran % (Auto) % Neut % (Auto) % Lymph % (Auto) % Blanco % (Auto) % Eos % (Auto) % Baso % (Auto) % Neut # (Auto) (1.4-6.5) K/uL Lymph # (Auto) (1.2-3.4) K/uL Blanco # (Auto) (0.11-0.59) K/uL Eos # (Auto) (0-0.5) K/uL Baso # (Auto) (0-0.2) K/uL Immature Gran # (Auto) (0.00-0.02) K/uL Fibrinogen 842 H (184-400) mg/dl D-Dimer 34608 H* (0-500) ug/L FEU Sodium (136-145) mmol/L Potassium (3.5-5.1) mmol/L Chloride (98-107) mmol/L Carbon Dioxide (21-32) mmol/L Anion Gap (3-11) BUN (6-23) mg/dl Creatinine (0.6-1.4) mg/dl Est Cr Clr Drug Dosing ml/min Est GFR ( Amer) ml/min Est GFR (Non-Af Amer) ml/min BUN/Creatinine Ratio (10-20) Glucose (70-99(Fasting)) mg/dl POC Glucose (70-99) mg/dl Lactate (0.4-2.0) mmol/L Calcium (8.5-10.1) mg/dl Phosphorus (2.5-4.9) mg/dl Magnesium (1.7-2.4) mg/dl Ferritin 603.1 H (8-388) ng/ml Total Bilirubin (0.2-1.0) mg/dl AST (13-39) U/L ALT (7-52) U/L Alkaline Phosphatase (34-104) U/L Lactate Dehydrogenase 221 (86-244) U/L C-Reactive Protein (0-0.5) mg/dl B-Natriuretic Peptide (0-100) pg/ml Total Protein (6.0-8.3) gm/dl Albumin (3.4-5.0) gm/dl Globulin (2.5-4.0) gm/dl Albumin/Globulin Ratio (0.9-2) Procalcitonin (0-0.5) ng/ml Hepatitis C Ab Screen (Neg) 06/10/21 06/10/21 Range/Units 23:07 23:07 WBC (4.8-10.8) K/uL RBC (4.7-6.1) M/uL Hgb (14.0-18.0) g/dL Hct (42-52) % MCV (80-100) fL MCH (25-34) pg MCHC (32-36) g/dL RDW Std Deviation (36.4-46.3) fL RDW Coeff of Eddie (11.5-14.5) % Plt Count (130-400) K/uL MPV (7.4-10.4) fL Immature Gran % (Auto) % Neut % (Auto) % Lymph % (Auto) % Blanco % (Auto) % Eos % (Auto) % Baso % (Auto) % Neut # (Auto) (1.4-6.5) K/uL Lymph # (Auto) (1.2-3.4) K/uL Blanco # (Auto) (0.11-0.59) K/uL Eos # (Auto) (0-0.5) K/uL Baso # (Auto) (0-0.2) K/uL Immature Gran # (Auto) (0.00-0.02) K/uL Fibrinogen (184-400) mg/dl D-Dimer (0-500) ug/L FEU Sodium (136-145) mmol/L Potassium (3.5-5.1) mmol/L Chloride (98-107) mmol/L Carbon Dioxide (21-32) mmol/L Anion Gap (3-11) BUN (6-23) mg/dl Creatinine (0.6-1.4) mg/dl Est Cr Clr Drug Dosing ml/min Est GFR ( Amer) ml/min Est GFR (Non-Af Amer) ml/min BUN/Creatinine Ratio (10-20) Glucose (70-99(Fasting)) mg/dl POC Glucose (70-99) mg/dl Lactate (0.4-2.0) mmol/L Calcium (8.5-10.1) mg/dl Phosphorus (2.5-4.9) mg/dl Magnesium (1.7-2.4) mg/dl Ferritin (8-388) ng/ml Total Bilirubin (0.2-1.0) mg/dl AST (13-39) U/L ALT (7-52) U/L Alkaline Phosphatase (34-104) U/L Lactate Dehydrogenase (86-244) U/L C-Reactive Protein 18.92 H (0-0.5) mg/dl B-Natriuretic Peptide (0-100) pg/ml Total Protein (6.0-8.3) gm/dl Albumin (3.4-5.0) gm/dl Globulin (2.5-4.0) gm/dl Albumin/Globulin Ratio (0.9-2) Procalcitonin 0.20 (0-0.5) ng/ml Hepatitis C Ab Screen (Neg) PG Care Time/CCT Total # of Minutes Spent Total Time Spent with Patient: Total time spent is greater than 50% in coordination of care (as documented) at patient's floor/unit and/or counseling patient: Coding Level of Care Code 26587 Subseq Hosp Care Lvl 3 Diagnoses COVID-19 U07.1 GERD (gastroesophageal reflux disease) K21.9 Diabetes E11.9 CAD (coronary artery disease) I25.10 Pulmonary emboli I26.99 Acute respiratory failure with hypoxia J96.01 Hypomagnesemia E83.42 Metabolic acidosis E87.2 Hyponatremia E87.1
[2021-06-11] MEDS: RIVAROXABAN 15 MG TAB PO SCH ×2 (12:46→22:37)
--- NOTE | 2021-06-11 14:04 | Electrocardiogram Report ---
Test Reason : Blood Pressure : / mmHG Vent. Rate : 111 BPM Atrial Rate : 111 BPM P-R Int : 194 ms QRS Dur : 098 ms QT Int : 308 ms P-R-T Axes : 048 048 -06 degrees QTc Int : 418 ms Sinus tachycardia with Fusion complexes Possible Inferior infarct , age undetermined Abnormal ECG No previous ECGs available Confirmed by Hua Chopra ([id number]) on 06/11/2021 2:04:10 PM Referred By: REFERRED SELF Confirmed By:Dano Chopra
--- NOTE | 2021-06-11 16:30 | Ultrasound Report ---
US venous doppler LE BI CLINICAL HISTORY: PE, r/o DVT COMPARISON: None available at the time of this dictation. TECHNIQUE: Bilateral lower extremity real-time compression venous ultrasound with Color Doppler imagi ng. Utilizing real-time ultrasonic imaging multiple real time high-resolution ultrasonic images with comp ression and noncompression maneuvers of the deep venous system in addition to color doppler imaging w ere performed from the common femoral vein through the proximal calf veins. FINDINGS: Currently there is normal compressibility of the deep venous system from the common femoral vein thro ugh the proximal calf veins. No current evidence of acute thrombosis is identified. Slow flow is note d in the venous system, nonspecific. Impression: No evidence of deep venous thrombus. ACT 112: Negative or not required by law. Electronically signed by: Cem Wadsworth M.D. 06/11/2021 4:28 PM
[2021-06-11] MEDS ORDERED: lisinopril 20 MG TAB PO SCH (21:00)
[2021-06-11] MEDS: PANTOprazole 40 MG TAB PO SCH (22:37)
[2021-06-12] MEDS: ALBUT/IPRATROP 3MG/0.5MG NEB 3 ML VIAL NEB SCH ×2 (07:22→19:50)
[2021-06-12] MEDS: SODIUM CHLOR 7% 4 ML NEB NEB SCH ×2 (07:27→19:50)
[2021-06-12 07:28] LABS: Basophils # (auto) 0.01 K/uL (0-0.2); Basophils % (auto) 0.1 %; Eosinophils # (auto) 0.07 K/uL (0-0.5); Eosinophils % (auto) 0.4 %; Hematocrit (blood only) 38.3 % (42-52); Hemoglobin 13.1 g/dL (14.0-18.0); Immature Granulocytes # (auto) 0.14 K/uL (0.00-0.02); Immature Granulocytes % (auto) 0.8 %; Lymphocytes # (auto) 1.42 K/uL (1.2-3.4); Lymphocytes % (auto) 8.6 %; Mean Corpuscular Hemoglobin 30.2 pg (25-34); Mean Corpuscular Hgb Conc 34.2 g/dL (32-36); Mean Corpuscular Volume 88.2 fL (80-100); Mean Platelet Volume 9.7 fL (7.4-10.4); Monocytes # (auto) 0.41 K/uL (0.11-0.59); Monocytes % (auto) 2.5 %; Neutrophils # (auto) 14.44 K/uL (1.4-6.5); Neutrophils % (auto) 87.6 %; Platelet Count 269 K/uL (130-400); RDW Coefficient of Variation 12.8 % (11.5-14.5); RDW Standard Deviation 41.4 fL (36.4-46.3); Red Blood Count 4.34 M/uL (4.7-6.1); White Blood Count 16.49 K/uL (4.8-10.8)
[2021-06-12] MEDS: INSULIN ASPART PER UNIT SC SCH ×4 (07:45→20:40)
[2021-06-12 07:58] LABS: Albumin Level 3.1 gm/dl (3.4-5.0); BUN Creatinine Ratio 34.3 (10-20); Bilirubin Direct 0.1 mg/dl (0-0.2); Bilirubin,Total 0.6 mg/dl (0.2-1.0); C Reactive Protein 9.76 mg/dl (0-0.5); Calcium 9.6 mg/dl (8.5-10.1); Creatinine Clr Calc Pharmacy 119.5 ml/min; Est GFR (African American) 120.2 ml/min; Est GFR (Non-African American) 103.7 ml/min; Potassium 4.2 mmol/L (3.5-5.1); Total Protein 6.6 gm/dl (6.0-8.3)
[2021-06-12] MEDS: ASPIRIN 81 MG ECTAB PO SCH (08:19)
[2021-06-12] MEDS: carvediloL 6.25 MG TAB PO SCH ×2 (08:19→20:58)
[2021-06-12] MEDS: RIVAROXABAN 15 MG TAB PO SCH ×2 (08:19→20:58)
[2021-06-12] MEDS: INSULIN GLARGINE SOLOSTAR 100 UNITS/ML 3 ML PEN SC SCH ×2 (08:28→20:41)
--- NOTE | 2021-06-12 08:55 | Hospitalist Progress Note ---
Date of Service June 12, 2021 Assessment & Plan (1) COVID-19: Plan: Elevated CRP of 18.92, down to 9 today Patient reports recently having the flu in April, feels like he never quite recovered. He also reports having PNA 7x in the past Has a h/o SLE on HQN D-dimer 29,000 after admission--> CTA Chest shows + bilateral numerous subsegmental upper lobe PEs and extensive PNA Now on HFNC 40L and 100% FiO2, not in distress dexamethasone 6mg IV daily, day 2 baricitinib 4mg daily, day 2 encourage flutter valve, incentive spirometer prone as much as possible, encouraged him to do this give Lasix 20mg IV x 1 and see how he responds -no role for Remdesevir given prolonged course.7 days - no role for antibiotics and procalcitonin is normal (2) Pulmonary emboli: Plan: as above, multiple bilat subsegmental PEs on CTA CHest they are very small, nothing central, doubt that they are contributing to hypoxemia Xarelto 15mg BID x 3 weeks then 20mg daily Check venous Dopplers--> negative. If had bleeding issues, would be ok to stop anticoagulation (3) GERD (gastroesophageal reflux disease): Plan: Chronic. Well controlled -Continue Protonix 40mg po daily (4) Diabetes: Plan: Blood sugar adequately controlled, at risk for hyperglycemia due to steroids -Hold Metformin, Trulicity, and Jardiance -Lantus 5u BID -ISS sugars well controlled, all below 200 (5) CAD (coronary artery disease): Plan: With a h/o [place] in 2008, a total of 11 stents since that time, most recent in 10/2017 No cardiac issues ie angina or exercise intolerance prior to admission Discussed need for anticoagulation with his Digital Imaging Technician, Dr. Edu Arteaga, at [facility]--> ok to dc Plavix to avoid triple tx -Continue ASA, Carvedilol and Lisinopril on Repatha for cholesterol, due for this tomorrow (6) Acute respiratory failure with hypoxia: Plan: 2/2 covid PNA as above continue suplemental O2 pulm toilet, add nebs prn (7) Hypomagnesemia: Plan: replaced and resolved (8) Metabolic acidosis: Plan: resolved, up to 24 today (9) Hyponatremia: Plan: up to 135, could have been due to poor solute intake Plan: Ppx - Xarelto Code - Full per discussion with patient Dispo - continued stay on telemetry Admission and Anticipated Discharge Date Admission Date: June 11, 2021 Subjective reviewed chart and labs patient currently on dexamethasone and baricitinib and Xarelto for PE and COVID pneumonia he is on 40L and 100% FiO2 this morning, increased since admission he said he was doing well yesterday, using incentive spirometer and flutter valve, was on 40% he stood up to pee, had a bad coughing spell, desaturated to 80% and his FiO2 had to be turned up to 100% he is speaking in full sentences but using some accessory muscles he says that he is going to beat this, kick this out of his lungs, he will do whatever it takes to avoid intubation and ventilation I told him he needs to be on his belly as much as possible and he needs to continue to eat and drink we will use some Lasix to keep his lungs dry I updated his daughter Briana, a PCU nurse Review of Systems Review of Systems: All systems reviewed & are unremarkable except as noted in Subjective Constitutional: + fatigue; no fever, no chills, no sweats and no weakness Respiratory: + cough, + dyspnea, + dyspnea on exertion and + sputum production Cardiovascular: no chest pain Gastrointestinal: no abdominal pain, no nausea, no vomiting, no constipation and no diarrhea/loose stools Physical Exam Physical Exam: General: well developed, well nourished, ill appearing but not in distress Neck: supple, trachea midline, normal thyroid Lungs: clear to auscultation bilaterally, + tachypnea, + accessory muscle use, not in respiratory distress, + cough Heart: regular S1 and S2, no murmur, peripheral pulses normal, capillary refill normal, no edema Abdomen: soft, NT, ND, + BS, no hepatomegaly, normal to percussion Extremities: normal in appearance, no cyanosis, no petechiae, strength is 5/5 bilaterally Neuro: awake, cooperative, moves all extremities, no focal motor deficits, CN II -XII intact, sensation in extremities intact, normal speech Skin: warm, dry, no rash, normal turgor Psych: Awake, alert oriented x 3, euthymic affect Results & Data Results & Data ([facility]) Vital Signs (Past 12 Hours) Vital Signs Temp Pulse Pulse Resp BP Pulse Ox 06/12/21 07:25 86 22 89 L 06/12/21 07:00 36.5 C 89 19 100/61 88 L 06/12/21 04:15 36.8 C 88 22 107/64 92 06/12/21 00:00 85 06/11/21 23:40 81 22 92 06/11/21 22:52 36.6 C 76 20 127/82 94 Laboratory Results Laboratory Results - last 24 hr 06/11/21 06/11/21 06/11/21 05:26 05:33 05:33 WBC 8.60 D RBC 4.16 L Hgb 12.6 L Hct 36.3 L MCV 87.3 MCH 30.3 MCHC 34.7 RDW Std Deviation 41.3 RDW Coeff of Eddie 12.8 Plt Count 216 MPV 9.4 Immature Gran % (Auto) 2.1 Neut % (Auto) 87.1 Lymph % (Auto) 6.7 Moore % (Auto) 4.0 Eos % (Auto) 0.0 Baso % (Auto) 0.1 Neut # (Auto) 7.49 H Lymph # (Auto) 0.58 L Moore # (Auto) 0.34 Eos # (Auto) 0.00 Baso # (Auto) 0.01 Immature Gran # (Auto) 0.18 H Sodium 133 L Potassium 4.4 Chloride 101 Carbon Dioxide 18 L Anion Gap 14 H BUN 25 H Creatinine 0.66 Est Cr Clr Drug Dosing 121.4 Est GFR ( Amer) 120.9 Est GFR (Non-Af Amer) 104.3 BUN/Creatinine Ratio 37.9 H Glucose 193 H POC Glucose Calcium 9.0 Phosphorus 4.9 Magnesium 1.9 Total Bilirubin 0.5 Direct Bilirubin AST 21 ALT 17 Alkaline Phosphatase 70 C-Reactive Protein Total Protein 6.4 Albumin 3.0 L Globulin 3.4 Albumin/Globulin Ratio 0.9 Procalcitonin Hepatitis C Ab Screen Neg 06/11/21 06/11/21 06/11/21 11:36 16:38 19:54 WBC RBC Hgb Hct MCV MCH MCHC RDW Std Deviation RDW Coeff of Eddie Plt Count MPV Immature Gran % (Auto) Neut % (Auto) Lymph % (Auto) Moore % (Auto) Eos % (Auto) Baso % (Auto) Neut # (Auto) Lymph # (Auto) Moore # (Auto) Eos # (Auto) Baso # (Auto) Immature Gran # (Auto) Sodium Potassium Chloride Carbon Dioxide Anion Gap BUN Creatinine Est Cr Clr Drug Dosing Est GFR ( Amer) Est GFR (Non-Af Amer) BUN/Creatinine Ratio Glucose POC Glucose 179 H 141 H 166 H Calcium Phosphorus Magnesium Total Bilirubin Direct Bilirubin AST ALT Alkaline Phosphatase C-Reactive Protein Total Protein Albumin Globulin Albumin/Globulin Ratio Procalcitonin Hepatitis C Ab Screen 06/12/21 06/12/21 06/12/21 06:58 07:01 07:01 WBC 16.49 H RBC 4.34 L Hgb 13.1 L Hct 38.3 L MCV 88.2 MCH 30.2 MCHC 34.2 RDW Std Deviation 41.4 RDW Coeff of Eddie 12.8 Plt Count 269 MPV 9.7 Immature Gran % (Auto) 0.8 Neut % (Auto) 87.6 Lymph % (Auto) 8.6 Moore % (Auto) 2.5 Eos % (Auto) 0.4 Baso % (Auto) 0.1 Neut # (Auto) 14.44 H Lymph # (Auto) 1.42 Moore # (Auto) 0.41 Eos # (Auto) 0.07 Baso # (Auto) 0.01 Immature Gran # (Auto) 0.14 H Sodium 135 L Potassium 4.2 Chloride 103 Carbon Dioxide 24 Anion Gap 8 BUN 23 Creatinine 0.67 Est Cr Clr Drug Dosing 119.5 Est GFR ( Amer) 120.2 Est GFR (Non-Af Amer) 103.7 BUN/Creatinine Ratio 34.3 H Glucose 134 H POC Glucose 149 H Calcium 9.6 Phosphorus Magnesium Total Bilirubin 0.6 Direct Bilirubin 0.1 AST 20 ALT 18 Alkaline Phosphatase 77 C-Reactive Protein 9.76 H Total Protein 6.6 Albumin 3.1 L Globulin Albumin/Globulin Ratio Procalcitonin Hepatitis C Ab Screen 06/12/21 07:01 WBC RBC Hgb Hct MCV MCH MCHC RDW Std Deviation RDW Coeff of Eddie Plt Count MPV Immature Gran % (Auto) Neut % (Auto) Lymph % (Auto) Moore % (Auto) Eos % (Auto) Baso % (Auto) Neut # (Auto) Lymph # (Auto) Moore # (Auto) Eos # (Auto) Baso # (Auto) Immature Gran # (Auto) Sodium Potassium Chloride Carbon Dioxide Anion Gap BUN Creatinine Est Cr Clr Drug Dosing Est GFR ( Amer) Est GFR (Non-Af Amer) BUN/Creatinine Ratio Glucose POC Glucose Calcium Phosphorus Magnesium Total Bilirubin Direct Bilirubin AST ALT Alkaline Phosphatase C-Reactive Protein Total Protein Albumin Globulin Albumin/Globulin Ratio Procalcitonin 0.29 Hepatitis C Ab Screen Medications Administered Current Inpatient Medications Acetaminophen (Acetaminophen 325 Mg Tab) 650 mg PO Q4H PRN PRN Reason: pain/fever Stop: 07/11/21 01:39 Albuterol (Albut/Ipratrop 3mg/0.5mg Neb 3 Ml Vial) 3 ml NEB BIDR [facility]; Protocol Stop: 07/12/21 06:59 Last Admin: 06/12/21 07:22 Dose: 3 ml Documented by: Aspirin (Aspirin 81 Mg Ectab) 81 mg PO QAM [facility] Stop: 07/11/21 08:59 Last Admin: 06/12/21 08:19 Dose: 81 mg Documented by: Baricitinib (Baricitinib 2 Mg Tab) 4 mg PO DAILY [facility] Stop: 06/24/21 09:01 Last Admin: 06/11/21 10:09 Dose: 4 mg Documented by: Benzonatate (Benzonatate 100 Mg Capsule) 200 mg PO TID PRN PRN Reason: Cough Stop: 07/11/21 01:39 Carvedilol (Carvedilol 6.25 Mg Tab) 6.25 mg PO BID [facility] Stop: 07/11/21 08:59 Last Admin: 06/12/21 08:19 Dose: 6.25 mg Documented by: Dextrose (Dextrose 50% 50 Ml Syringe) 25 - 50 ml IV UD PRN; Protocol PRN Reason: Hypoglycemia Protocol Stop: 07/11/21 01:39 Glucagon (Glucagon For Inj 1 Mg Vial) 1 mg SQ UD PRN; Protocol PRN Reason: Hypoglycemia Protocol Stop: 07/11/21 01:39 Glucose (Glucose 10 Tabs/Tube) 4 - 8 tabs PO UD PRN; Protocol PRN Reason: Hypoglycemia Protocol Stop: 07/11/21 01:39 Glucose (Glucose 40% Gel 15 Gm Tube) 15 - 30 gm PO UD PRN; Protocol PRN Reason: Hypoglycemia Protocol Stop: 07/11/21 01:39 Dexamethasone 6 mg/ Syringe 1.5 mls @ 1 mls/min IV Q24H [facility] Stop: 07/11/21 20:59 Insulin Aspart (Insulin Aspart Per Unit) 0 units SC ACHS [facility] Stop: 07/11/21 07:29 Last Admin: 06/12/21 07:45 Dose: 3 units Documented by: Insulin Glargine (Insulin Glargine Solostar 100 Units/Ml 3 Ml Pen) 5 units SC BID [facility] Stop: 07/11/21 08:59 Last Admin: 06/12/21 08:28 Dose: 5 units Documented by: Lisinopril (Lisinopril 20 Mg Tab) 20 mg PO QPM [facility] Stop: 07/11/21 20:59 Last Admin: 06/11/21 22:37 Dose: 20 mg Documented by: Miscellaneous (Carbohydrates For Hypoglycemia ) 15 - 30 gm PO UD PRN PRN Reason: Hypoglycemia Protocol Stop: 07/11/21 01:39 Ondansetron HCl (Ondansetron Inj 2 Mg/Ml 2 Ml Vial) 4 mg IV Q6H PRN PRN Reason: Nausea Stop: 07/11/21 01:39 Pantoprazole Sodium (Pantoprazole 40 Mg Tab) 40 mg PO QPM [facility] Stop: 07/11/21 20:59 Last Admin: 06/11/21 22:37 Dose: 40 mg Documented by: Rivaroxaban (Rivaroxaban 15 Mg Tab) 15 mg PO BID [facility] Stop: 07/01/21 21:01 Last Admin: 06/12/21 08:19 Dose: 15 mg Documented by: Sodium Chloride (Sodium Chlor 7% 4 Ml Neb) 4 ml NEB BIDR [facility] Stop: 07/12/21 06:59 Last Admin: 06/12/21 07:27 Dose: Not Given Documented by: PG Care Time/CCT Total # of Minutes Spent Total Time Spent with Patient: Total time spent is greater than 50% in coordination of care (as documented) at patient's floor/unit and/or counseling patient: Coding Level of Care Code 00898 Subseq Hosp Care Lvl 3 Diagnoses COVID-19 U07.1 Pulmonary emboli I26.99 GERD (gastroesophageal reflux disease) K21.9 Diabetes E11.9 CAD (coronary artery disease) I25.10 Acute respiratory failure with hypoxia J96.01 Hypomagnesemia E83.42 Metabolic acidosis E87.2 Hyponatremia E87.1
[2021-06-12] MEDS: BARICITINIB 2 MG TAB PO SCH (10:32)
[2021-06-12] MEDS: dexAMETHasone 6 MG in SYRINGE 0 ML IV SCH (10:32)
[2021-06-12] MEDS: FUROSEMIDE INJ 20 MG/2 ML VIAL IV ONE ×2 (10:32→11:06)
[2021-06-12] MEDS ORDERED: SODIUM CHLORIDE 0.9% 1000ML 1,000 ML IV ONE (11:08)
[2021-06-12] MEDS: MELATONIN 3 MG TAB PO PRN (20:58)
[2021-06-12] MEDS: PANTOprazole 40 MG TAB PO SCH (20:58)
[2021-06-13] MEDS: SODIUM CHLOR 7% 4 ML NEB NEB SCH ×2 (07:23→19:43)
[2021-06-13] MEDS: ALBUT/IPRATROP 3MG/0.5MG NEB 3 ML VIAL NEB SCH ×2 (07:23→19:42)
[2021-06-13] MEDS: INSULIN ASPART PER UNIT SC SCH ×4 (07:55→21:05)
[2021-06-13] MEDS: INSULIN GLARGINE SOLOSTAR 100 UNITS/ML 3 ML PEN SC SCH ×2 (08:00→21:07)
[2021-06-13] MEDS: ASPIRIN 81 MG ECTAB PO SCH (08:13)
[2021-06-13] MEDS: dexAMETHasone 6 MG in SYRINGE 0 ML IV SCH (08:13)
[2021-06-13] MEDS: BARICITINIB 2 MG TAB PO SCH (08:13)
[2021-06-13] MEDS: RIVAROXABAN 15 MG TAB PO SCH ×2 (08:13→20:43)
[2021-06-13] MEDS: carvediloL 6.25 MG TAB PO SCH ×2 (09:07→20:42)
[2021-06-13] MEDS ORDERED: REPATHA 140 MG SC ONE (09:26)
--- NOTE | 2021-06-13 11:24 | Hospitalist Progress Note ---
Date of Service June 13, 2021 Assessment & Plan (1) COVID-19: Plan: Elevated CRP of 18.92, down to 9 on 06/12, will repeat tomorrow Patient reports recently having the flu in April, feels like he never quite recovered. He also reports having PNA 7x in the past Has a h/o SLE on HQN D-dimer 29,000 after admission--> CTA Chest shows + bilateral numerous subsegmental upper lobe PEs and extensive PNA HFNC 40L and 80% FiO2, not in distress, making some improvements the past 24 hours dexamethasone 6mg IV daily, day 3 baricitinib 4mg daily, day 3 encourage flutter valve, incentive spirometer (able to pull 2200mL today) prone as much as possible, lay on left side, encouraged him to do this no need for Lasix today -no role for Remdesevir given prolonged course - no role for antibiotics as procalcitonin is normal (2) Acute respiratory failure with hypoxia: Plan: 06/16 covid PNA as above continue suplemental O2 pulm toilet, add nebs prn slightly improved today at 40L 80% subjectively he feels a lot better, able to take a deeper breath (3) Pulmonary emboli: Plan: as above, multiple bilat subsegmental PEs on CTA CHest they are very small, nothing central, doubt that they are contributing to hypoxemia Xarelto 15mg BID x 3 weeks then 20mg daily Check venous Dopplers--> negative. If had bleeding issues, would be ok to stop anticoagulation (4) GERD (gastroesophageal reflux disease): Plan: Chronic. Well controlled -Continue Protonix 40mg po daily (5) Diabetes: Plan: Blood sugar adequately controlled, at risk for hyperglycemia due to steroids -Hold Metformin, Trulicity, and Jardiance -Lantus 5u BID -ISS sugars well controlled, all below 250 (6) CAD (coronary artery disease): Plan: With a h/o [place] in 2008, a total of 11 stents since that time, most recent in 10/2017 No cardiac issues ie angina or exercise intolerance prior to admission Discussed need for anticoagulation with his French Polisher, Dr. Edu Arteaga, at [facility]--> ok to dc Plavix to avoid triple tx -Continue ASA, Carvedilol and Lisinopril on Repatha for cholesterol, due for this today, ordered through pharmacy (7) Hypomagnesemia: Plan: replaced and resolved (8) Metabolic acidosis: Plan: resolved, up to 24 yesterday (9) Hyponatremia: Plan: up to 135 yesterday Plan: Faye - Shanel Code - Full per discussion with patient Dispo - continued stay on telemetry, check labs tomorrow, try to wean from high flow in next few days Admission and Anticipated Discharge Date Admission Date: June 11, 2021 Subjective patient says he is feeling a lot better today, moving more air, able to pull 2200 on incentive spirometer had a coughing spell this morning, he feels like he has junk in right lung he is eating and drinking great, BP is better today, no fever saturations stable on 40L and 85%, moved him down to 80%, RN will watch his saturations he is very active, up and doing exercises, got cleaned up no labs today, check tomorrow Review of Systems Review of Systems: All systems reviewed & are unremarkable except as noted in Subjective Respiratory: + cough, + dyspnea, + dyspnea on exertion and + sputum production Physical Exam Physical Exam: General: well developed, well nourished, ill appearing but not in distress Neck: supple, trachea midline, normal thyroid Lungs: clear to auscultation bilaterally, + tachypnea, + accessory muscle use, not in respiratory distress, + cough Heart: regular S1 and S2, no murmur, peripheral pulses normal, capillary refill normal, no edema Abdomen: soft, NT, ND, + BS, no hepatomegaly, normal to percussion Extremities: normal in appearance, no cyanosis, no petechiae, strength is 5/5 bilaterally Neuro: awake, cooperative, moves all extremities, no focal motor deficits, CN II-XII intact, sensation in extremities intact, normal speech Skin: warm, dry, no rash, normal turgor Psych: Awake, alert oriented x 3, euthymic affect Results & Data Results & Data ([facility]) Vital Signs (Past 12 Hours) Vital Signs Temp Pulse Pulse Resp BP Pulse Ox 06/13/21 07:51 36.6 C 81 22 124/73 95 06/13/21 07:36 76 06/13/21 07:24 95 H 22 89 L 06/13/21 05:22 36.5 C 80 22 99/62 L 88 L 06/13/21 03:33 68 20 92 06/13/21 00:00 36.5 C 77 76 18 106/73 92 06/12/21 23:32 76 18 93 Laboratory Results Laboratory Results - last 24 hr 06/12/21 06/12/21 06/12/21 11:49 16:47 20:12 POC Glucose 152 H 186 H 245 H 06/13/21 07:47 POC Glucose 142 H Medications Administered Current Inpatient Medications Acetaminophen (Acetaminophen 325 Mg Tab) 650 mg PO Q4H PRN PRN Reason: pain/fever Stop: 07/11/21 01:39 Albuterol (Albut/Ipratrop 3mg/0.5mg Neb 3 Ml Vial) 3 ml NEB BIDR [facility]; Protocol Stop: 07/12/21 06:59 Last Admin: 06/13/21 07:23 Dose: 3 ml Documented by: Aspirin (Aspirin 81 Mg Ectab) 81 mg PO QAM [facility] Stop: 07/11/21 08:59 Last Admin: 06/13/21 08:13 Dose: 81 mg Documented by: Baricitinib (Baricitinib 2 Mg Tab) 4 mg PO DAILY [facility] Stop: 06/24/21 09:01 Last Admin: 06/13/21 08:13 Dose: 4 mg Documented by: Benzonatate (Benzonatate 100 Mg Capsule) 200 mg PO TID PRN PRN Reason: Cough Stop: 07/11/21 01:39 Carvedilol (Carvedilol 6.25 Mg Tab) 6.25 mg PO BID [facility] Stop: 07/11/21 08:59 Last Admin: 06/13/21 09:07 Dose: Not Given Documented by: Dextrose (Dextrose 50% 50 Ml Syringe) 25 - 50 ml IV UD PRN; Protocol PRN Reason: Hypoglycemia Protocol Stop: 07/11/21 01:39 Glucagon (Glucagon For Inj 1 Mg Vial) 1 mg SQ UD PRN; Protocol PRN Reason: Hypoglycemia Protocol Stop: 07/11/21 01:39 Glucose (Glucose 10 Tabs/Tube) 4 - 8 tabs PO UD PRN; Protocol PRN Reason: Hypoglycemia Protocol Stop: 07/11/21 01:39 Glucose (Glucose 40% Gel 15 Gm Tube) 15 - 30 gm PO UD PRN; Protocol PRN Reason: Hypoglycemia Protocol Stop: 07/11/21 01:39 Dexamethasone 6 mg/ Syringe 1.5 mls @ 1 mls/min IV Q24H [facility] Stop: 07/11/21 20:59 Last Admin: 06/13/21 08:13 Dose: 1 mls/min Documented by: Insulin Aspart (Insulin Aspart Per Unit) 0 units SC ACHS [facility] Stop: 07/11/21 07:29 Last Admin: 06/13/21 07:55 Dose: 3 units Documented by: Insulin Glargine (Insulin Glargine Solostar 100 Units/Ml 3 Ml Pen) 5 units SC BID [facility] Stop: 07/11/21 08:59 Last Admin: 06/13/21 08:00 Dose: 5 units Documented by: Lisinopril (Lisinopril 20 Mg Tab) 20 mg PO QPM [facility] Stop: 07/11/21 20:59 Last Admin: 06/11/21 22:37 Dose: 20 mg Documented by: Melatonin (Melatonin 3 Mg Tab) 3 mg PO HS PRN PRN Reason: Sleep Stop: 07/12/21 18:43 Last Admin: 06/12/21 20:58 Dose: 3 mg Documented by: Miscellaneous (Carbohydrates For Hypoglycemia ) 15 - 30 gm PO UD PRN PRN Reason: Hypoglycemia Protocol Stop: 07/11/21 01:39 Miscellaneous (Evolocumab (Repatha) Injection~Order Awaiting Action) 1 ea N/A QS [facility] Stop: 07/13/21 15:59 Ondansetron HCl (Ondansetron Inj 2 Mg/Ml 2 Ml Vial) 4 mg IV Q6H PRN PRN Reason: Nausea Stop: 07/11/21 01:39 Pantoprazole Sodium (Pantoprazole 40 Mg Tab) 40 mg PO QPM [facility] Stop: 07/11/21 20:59 Last Admin: 06/12/21 20:58 Dose: 40 mg Documented by: Rivaroxaban (Rivaroxaban 15 Mg Tab) 15 mg PO BID [facility] Stop: 07/01/21 21:01 Last Admin: 06/13/21 08:13 Dose: 15 mg Documented by: Sodium Chloride (Sodium Chlor 7% 4 Ml Neb) 4 ml NEB BIDR [facility] Stop: 07/12/21 06:59 Last Admin: 06/13/21 07:23 Dose: Not Given Documented by: PG Care Time/CCT Total # of Minutes Spent Total Time Spent with Patient: Total time spent is greater than 50% in coordination of care (as documented) at patient's floor/unit and/or counseling patient: Coding Level of Care Code 32405 Subseq Hosp Care Lvl 3 Diagnoses COVID-19 U07.1 Pulmonary emboli I26.99 GERD (gastroesophageal reflux disease) K21.9 Diabetes E11.9 CAD (coronary artery disease) I25.10 Acute respiratory failure with hypoxia J96.01 Hypomagnesemia E83.42 Metabolic acidosis E87.2 Hyponatremia E87.1
[2021-06-13] MEDS ORDERED: EVOLOCUMAB 140 MG/ML SC SCH (13:00)
[2021-06-13] MEDS: PANTOprazole 40 MG TAB PO SCH (20:43)
[2021-06-14] MEDS: ALBUT/IPRATROP 3MG/0.5MG NEB 3 ML VIAL NEB SCH ×2 (07:23→19:03)
[2021-06-14] MEDS: SODIUM CHLOR 7% 4 ML NEB NEB SCH ×2 (07:24→19:03)
[2021-06-14 07:46] LABS: Hematocrit (blood only) 37.1 % (42-52); Hemoglobin 12.7 g/dL (14.0-18.0); Mean Corpuscular Hemoglobin 30.3 pg (25-34); Mean Corpuscular Hgb Conc 34.2 g/dL (32-36); Mean Corpuscular Volume 88.5 fL (80-100); Mean Platelet Volume 9.6 fL (7.4-10.4); Platelet Count 218 K/uL (130-400); RDW Coefficient of Variation 12.8 % (11.5-14.5); RDW Standard Deviation 40.8 fL (36.4-46.3); Red Blood Count 4.19 M/uL (4.7-6.1); White Blood Count 13.97 K/uL (4.8-10.8)
[2021-06-14 08:09] LABS: C Reactive Protein 6.39 mg/dl (0-0.5); Calcium 9.4 mg/dl (8.5-10.1); Creatinine Clr Calc Pharmacy 117.8 ml/min; Est GFR (African American) 119.5 ml/min; Est GFR (Non-African American) 103.1 ml/min; Magnesium 1.5 mg/dl (1.7-2.4); Phosphorus 2.9 mg/dl (2.5-4.9); Potassium 4.1 mmol/L (3.5-5.1)
[2021-06-14] MEDS: dexAMETHasone 6 MG in SYRINGE 0 ML IV SCH (08:46)
[2021-06-14] MEDS: BARICITINIB 2 MG TAB PO SCH (08:46)
[2021-06-14] MEDS: carvediloL 6.25 MG TAB PO SCH ×2 (08:48→21:18)
[2021-06-14] MEDS: RIVAROXABAN 15 MG TAB PO SCH ×2 (08:48→21:20)
[2021-06-14] MEDS: ASPIRIN 81 MG ECTAB PO SCH (08:48)
[2021-06-14] MEDS: INSULIN ASPART PER UNIT SC SCH ×4 (08:53→21:00)
[2021-06-14] MEDS: INSULIN GLARGINE SOLOSTAR 100 UNITS/ML 3 ML PEN SC SCH ×2 (08:54→20:59)
--- NOTE | 2021-06-14 11:10 | Hospitalist Progress Note ---
Date of Service June 14, 2021 Assessment & Plan (1) COVID-19: Plan: Elevated CRP of 18.92 on admission, trended down to 9 then 6 today, showing appropriate response Patient reports recently having the flu in April, feels like he never quite recovered. He also reports having PNA 7x in the past Has a h/o SLE on HQN D-dimer 29,000 after admission--> CTA Chest shows + bilateral numerous subsegmental upper lobe PEs and extensive PNA HFNC 40L and 65% FiO2, not in distress, making some improvements the past 24 hours dexamethasone 6mg IV daily, day 4 baricitinib 4mg daily, day 4 encourage flutter valve, incentive spirometer (able to pull > 2000mL consisten tly) prone as much as possible, lay on left side, encouraged him to do this no need for Lasix -no role for Remdesevir given prolonged course - no role for antibiotics as procalcitonin is normal (2) Acute respiratory failure with hypoxia: Plan: 2/2 covid PNA as above continue suplemental O2 pulm toilet, add nebs prn slightly improved today at 40L 65% subjectively he feels a lot better, able to take a deeper breath working on reducing flow and FiO2 further (3) Pulmonary emboli: Plan: as above, multiple bilat subsegmental PEs on CTA CHest they are very small, nothing central, doubt that they are contributing to hypoxemia Xarelto 15mg BID x 3 weeks then 20mg daily Check venous Dopplers--> negative. If had bleeding issues, would be ok to stop anticoagulation (4) GERD (gastroesophageal reflux disease): Plan: Chronic. 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, at [facility]--> ok to dc Plavix to avoid triple tx -Continue ASA, Carvedilol and Lisinopril on Repatha for cholesterol, administered on 06/13 (7) Hypomagnesemia: Plan: 1.5 today give 2gm IV (8) Metabolic acidosis: Plan: resolved (9) Hyponatremia: Plan: 134 today Plan: Faye - Shanel Code - Full per discussion with patient Dispo - continued stay on telemetry, check labs tomorrow, try to wean from high flow in next few days Admission and Anticipated Discharge Date Admission Date: June 11, 2021 Subjective patient feeling great, sitting up in chair, said he slept well coughing up lots of sputum he is down to 40L and 65% today, saturations > 90% reviewed labs, Cr stable, K 4.1 mag low at 1.5, will replace CRP trending down to 6 Review of Systems Review of Systems: All systems reviewed & are unremarkable except as noted in Subjective Constitutional: no fever, no fatigue and no weakness Respiratory: + cough, + dyspnea on exertion and + sputum production Cardiovascular: no chest pain Gastrointestinal: no abdominal pain, no nausea, no vomiting, no constipation and no diarrhea/loose stools Physical Exam Physical Exam: General: well developed, well nourished, ill appearing but not in distress Neck: supple, trachea midline, normal thyroid Lungs: clear to auscultation bilaterally, + tachypnea, no accessory muscle use, not in respiratory distress, + cough Heart: regular S1 and S2, no murmur, peripheral pulses normal, capillary refill normal, no edema Abdomen: soft, NT, ND, + BS, no hepatomegaly, normal to percussion Extremities: normal in appearance, no cyanosis, no petechiae, strength is 5/5 bilaterally Neuro: awake, cooperative, moves all extremities, no focal motor deficits, CN II-XII intact, sensation in extremities intact, normal speech Skin: warm, dry, no rash, normal turgor Psych: Awake, alert oriented x 3, euthymic affect Results & Data Results & Data ([facility]) Vital Signs (Past 12 Hours) Vital Signs Temp Pulse Pulse Resp BP Pulse Ox 06/14/21 08:45 78 06/14/21 07:26 85 20 90 06/14/21 07:16 36.7 C 84 22 104/62 92 06/14/21 03:35 36.7 C 79 24 106/64 91 06/14/21 03:28 81 15 93 06/14/21 00:28 94 H 06/14/21 00:18 36.5 C 82 24 97/56 L 96 06/13/21 23:40 85 14 90 Laboratory Results Laboratory Results - last 24 hr 06/13/21 06/13/21 06/13/21 12:02 16:46 20:40 WBC RBC Hgb Hct MCV MCH MCHC RDW Std Deviation RDW Coeff of Eddie Plt Count MPV Sodium Potassium Chloride Carbon Dioxide Anion Gap BUN Creatinine Est Cr Clr Drug Dosing Est GFR ( Amer) Est GFR (Non-Af Amer) BUN/Creatinine Ratio Glucose POC Glucose 164 H 117 H 172 H Calcium Phosphorus Magnesium C-Reactive Protein 06/14/21 06/14/21 06/14/21 07:14 07:25 07:25 WBC 13.97 H RBC 4.19 L Hgb 12.7 L Hct 37.1 L MCV 88.5 MCH 30.3 MCHC 34.2 RDW Std Deviation 40.8 RDW Coeff of Eddie 12.8 Plt Count 218 MPV 9.6 Sodium 134 L Potassium 4.1 Chloride 101 Carbon Dioxide 28 Anion Gap 5 BUN 17 Creatinine 0.68 Est Cr Clr Drug Dosing 117.8 Est GFR ( Amer) 119.5 Est GFR (Non-Af Amer) 103.1 BUN/Creatinine Ratio 25.0 H Glucose 113 H POC Glucose 113 H Calcium 9.4 Phosphorus 2.9 Magnesium 1.5 L C-Reactive Protein 6.39 H Medications Administered Current Inpatient Medications Acetaminophen (Acetaminophen 325 Mg Tab) 650 mg PO Q4H PRN PRN Reason: pain/fever Stop: 07/11/21 01:39 Last Admin: 06/14/21 08:47 Dose: 650 mg Documented by: Albuterol (Albut/Ipratrop 3mg/0.5mg Neb 3 Ml Vial) 3 ml NEB BIDR [facility]; Protocol Stop: 07/12/21 06:59 Last Admin: 06/14/21 07:23 Dose: 3 ml Documented by: Aspirin (Aspirin 81 Mg Ectab) 81 mg PO QAM [facility] Stop: 07/11/21 08:59 Last Admin: 06/14/21 08:48 Dose: 81 mg Documented by: Baricitinib (Baricitinib 2 Mg Tab) 4 mg PO DAILY [facility] Stop: 06/24/21 09:01 Last Admin: 06/14/21 08:46 Dose: 4 mg Documented by: Benzonatate (Benzonatate 100 Mg Capsule) 200 mg PO TID PRN PRN Reason: Cough Stop: 07/11/21 01:39 Carvedilol (Carvedilol 6.25 Mg Tab) 6.25 mg PO BID [facility] Stop: 07/11/21 08:59 Last Admin: 06/14/21 08:48 Dose: 6.25 mg Documented by: Dextrose (Dextrose 50% 50 Ml Syringe) 25 - 50 ml IV UD PRN; Protocol PRN Reason: Hypoglycemia Protocol Stop: 07/11/21 01:39 Glucagon (Glucagon For Inj 1 Mg Vial) 1 mg SQ UD PRN; Protocol PRN Reason: Hypoglycemia Protocol Stop: 07/11/21 01:39 Glucose (Glucose 10 Tabs/Tube) 4 - 8 tabs PO UD PRN; Protocol PRN Reason: Hypoglycemia Protocol Stop: 07/11/21 01:39 Glucose (Glucose 40% Gel 15 Gm Tube) 15 - 30 gm PO UD PRN; Protocol PRN Reason: Hypoglycemia Protocol Stop: 07/11/21 01:39 Hydroxychloroquine Sulfate (Hydroxychloroquine Sulfate 200 Mg Tab) 200 mg PO BID [facility] Stop: 07/14/21 20:59 Dexamethasone 6 mg/ Syringe 1.5 mls @ 1 mls/min IV Q24H [facility] Stop: 07/11/21 20:59 Last Admin: 06/14/21 08:46 Dose: 1 mls/min Documented by: Magnesium Sulfate/Dextrose (Magnesium Sulfate / D5w) 1 gm in 100 mls @ 50 mls/hr IV Q2H [facility] Stop: 06/14/21 14:44 Ibuprofen (Ibuprofen 200 Mg Tab) 400 mg PO TID PRN PRN Reason: Pain Stop: 07/14/21 10:23 Insulin Aspart (Insulin Aspart Per Unit) 0 units SC ACHS [facility] Stop: 07/11/21 07:29 Last Admin: 06/14/21 08:53 Dose: 3 units Documented by: Insulin Glargine (Insulin Glargine Solostar 100 Units/Ml 3 Ml Pen) 5 units SC BID [facility] Stop: 07/11/21 08:59 Last Admin: 06/14/21 08:54 Dose: 5 units Documented by: Lisinopril (Lisinopril 20 Mg Tab) 20 mg PO QPM [facility] Stop: 07/11/21 20:59 Last Admin: 06/11/21 22:37 Dose: 20 mg Documented by: Melatonin (Melatonin 3 Mg Tab) 3 mg PO HS PRN PRN Reason: Sleep Stop: 07/12/21 18:43 Last Admin: 06/12/21 20:58 Dose: 3 mg Documented by: Miscellaneous (Carbohydrates For Hypoglycemia ) 15 - 30 gm PO UD PRN PRN Reason: Hypoglycemia Protocol Stop: 07/11/21 01:39 Ondansetron HCl (Ondansetron Inj 2 Mg/Ml 2 Ml Vial) 4 mg IV Q6H PRN PRN Reason: Nausea Stop: 07/11/21 01:39 Pantoprazole Sodium (Pantoprazole 40 Mg Tab) 40 mg PO QPM [facility] Stop: 07/11/21 20:59 Last Admin: 06/13/21 20:43 Dose: 40 mg Documented by: Rivaroxaban (Rivaroxaban 15 Mg Tab) 15 mg PO BID [facility] Stop: 07/01/21 21:01 Last Admin: 06/14/21 08:48 Dose: 15 mg Documented by: Sodium Chloride (Sodium Chlor 7% 4 Ml Neb) 4 ml NEB BIDR [facility] Stop: 07/12/21 06:59 Last Admin: 06/14/21 07:24 Dose: 4 ml Documented by: PG Care Time/CCT Total # of Minutes Spent Total Time Spent with Patient: Total time spent is greater than 50% in coordination of care (as documented) at patient's floor/unit and/or counseling patient: Coding Level of Care Code 38021 Subseq Hosp Care Lvl 3 Diagnoses COVID-19 U07.1 Acute respiratory failure with hypoxia J96.01 Pulmonary emboli I26.99 GERD (gastroesophageal reflux disease) K21.9 Diabetes E11.9 CAD (coronary artery disease) I25.10 Hypomagnesemia E83.42 Metabolic acidosis E87.2 Hyponatremia E87.1
[2021-06-14] MEDS: MAGNESIUM SULFATE / D5W 1 GM/100 ML BAG IV SCH ×2 (11:14→15:38)
[2021-06-14] MEDS: MELATONIN 3 MG TAB PO PRN (21:19)
[2021-06-14] MEDS: HYDROXYCHLOROQUINE SULFATE 200 MG TAB PO SCH (21:19)
[2021-06-14] MEDS: PANTOprazole 40 MG TAB PO SCH (21:20)
[2021-06-15] MEDS: SODIUM CHLOR 7% 4 ML NEB NEB SCH ×2 (07:18→19:09)
[2021-06-15] MEDS: ALBUT/IPRATROP 3MG/0.5MG NEB 3 ML VIAL NEB SCH ×2 (07:18→19:08)
[2021-06-15] MEDS: dexAMETHasone 6 MG in SYRINGE 0 ML IV SCH (07:47)
[2021-06-15] MEDS: RIVAROXABAN 15 MG TAB PO SCH ×2 (07:48→21:16)
[2021-06-15] MEDS: ASPIRIN 81 MG ECTAB PO SCH (07:48)
[2021-06-15] MEDS: HYDROXYCHLOROQUINE SULFATE 200 MG TAB PO SCH ×2 (07:48→21:15)
[2021-06-15] MEDS: carvediloL 6.25 MG TAB PO SCH ×2 (07:49→21:15)
[2021-06-15] MEDS: INSULIN ASPART PER UNIT SC SCH ×4 (07:56→20:48)
[2021-06-15] MEDS: INSULIN GLARGINE SOLOSTAR 100 UNITS/ML 3 ML PEN SC SCH ×2 (07:56→20:44)
[2021-06-15] MEDS: BARICITINIB 2 MG TAB PO SCH (07:59)
--- NOTE | 2021-06-15 12:41 | Hospitalist Progress Note ---
Date of Service June 15, 2021 Assessment & Plan (1) COVID-19: Plan: Elevated CRP of 18.92 on admission, trended down to 9 then 6 06/14, showing appropriate response Patient reports recently having the flu in April, feels like he never quite recovered. He also reports having PNA 7x in the past Has a h/o SLE on HQN D-dimer 29,000 after admission--> CTA Chest shows + bilateral numerous subsegmental upper lobe PEs and extensive PNA HFNC 35L and 50% FiO2, not in distress, making a lot of improvements past 3 days dexamethasone 6mg IV daily, day 5 baricitinib 4mg daily, day 5 encourage flutter valve, incentive spirometer (able to pull > 2000mL consistently) prone as much as possible, lay on left side, encouraged him to do this no need for Lasix -no role for Remdesevir given prolonged course - no role for antibiotics as procalcitonin is normal (2) Acute respiratory failure with hypoxia: Plan: 06/16 covid PNA as above continue suplemental O2 pulm toilet, add nebs prn really improved today at 35L 50% subjectively he feels a lot better, able to take a deeper breath working on reducing flow and FiO2 further (3) Pulmonary emboli: Plan: as above, multiple bilat subsegmental PEs on CTA CHest they are very small, nothing central, doubt that they are contributing to hypoxemia Xarelto 15mg BID x 3 weeks then 20mg daily Check venous Dopplers--> negative. If had bleeding issues, would be ok to stop anticoagulation (4) GERD (gastroesophageal reflux disease): Plan: Chronic. 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 Edu Arteaga, at [facility]--> ok to dc Plavix to avoid triple tx -Continue ASA, Carvedilol and Lisinopril on Repatha for cholesterol, administered on 06/13 (7) Hypomagnesemia: Plan: repeat tomorrow (8) Metabolic acidosis: Plan: resolved (9) Hyponatremia: Plan: stable Plan: Ppx - Kirtito Code - Full per discussion with patient Dispo - continued stay on telemetry, check labs tomorrow, try to wean from high flow in next few days Admission and Anticipated Discharge Date Admission Date: June 11, 2021 Subjective patient feeling great, down to 35L and 50% today continues to be active in the room, sitting in a chair, laying prone or on his side eating quite well, passing flatus, no nausea/vomiting, no diarrhea has a productive cough, feels like the right side of his chest is really opening up making a lot of urine, drinking a lot of water Review of Systems Review of Systems: All systems reviewed & are unremarkable except as noted in Subjective Constitutional: no fever, no chills, no sweats, no fatigue and no weakness Respiratory: + cough, + dyspnea on exertion and + sputum production; no dyspnea Cardiovascular: no chest pain Gastrointestinal: no abdominal pain, no nausea, no vomiting, no constipation and no diarrhea/loose stools Physical Exam Physical Exam: General: well developed, well nourished, ill appearing but not in distress Neck: supple, trachea midline, normal thyroid Lungs: clear to auscultation bilaterally, + tachypnea, no accessory muscle use, not in respiratory distress, + cough Heart: regular S1 and S2, no murmur, peripheral pulses normal, capillary refill normal, no edema Abdomen: soft, NT, ND, + BS, no hepatomegaly, normal to percussion Extremities: normal in appearance, no cyanosis, no petechiae, strength is 5/5 bilaterally Neuro: awake, cooperative, moves all extremities, no focal motor deficits, CN II-XII intact, sensation in extremities intact, normal speech Skin: warm, dry, no rash, normal turgor Psych: Awake, alert oriented x 3, euthymic affect Results & Data Results & Data ([facility]) Vital Signs (Past 12 Hours) Vital Signs Temp Pulse Pulse Resp BP Pulse Ox 06/15/21 10:37 36.5 C 83 22 98/63 L 91 06/15/21 10:35 89 18 91 06/15/21 07:45 73 06/15/21 07:20 75 18 89 L 06/15/21 07:19 75 18 89 L 06/15/21 03:36 36.5 C 62 22 108/70 91 06/15/21 03:25 70 18 99 Laboratory Results Laboratory Results - last 24 hr 06/14/21 06/14/21 06/15/21 16:21 20:03 07:41 POC Glucose 213 H 209 H 123 H 06/15/21 11:24 POC Glucose 243 H Medications Administered Current Inpatient Medications Acetaminophen (Acetaminophen 325 Mg Tab) 650 mg PO Q4H PRN PRN Reason: pain/fever Stop: 07/11/21 01:39 Last Admin: 06/14/21 08:47 Dose: 650 mg Documented by: Albuterol (Albut/Ipratrop 3mg/0.5mg Neb 3 Ml Vial) 3 ml NEB BIDR [facility]; Protocol Stop: 07/12/21 06:59 Last Admin: 06/15/21 07:18 Dose: 3 ml Documented by: Aspirin (Aspirin 81 Mg Ectab) 81 mg PO QAM [facility] Stop: 07/11/21 08:59 Last Admin: 06/15/21 07:48 Dose: 81 mg Documented by: Baricitinib (Baricitinib 2 Mg Tab) 4 mg PO DAILY [facility] Stop: 06/24/21 09:01 Last Admin: 06/15/21 07:59 Dose: 4 mg Documented by: Benzonatate (Benzonatate 100 Mg Capsule) 200 mg PO TID PRN PRN Reason: Cough Stop: 07/11/21 01:39 Carvedilol (Carvedilol 6.25 Mg Tab) 6.25 mg PO BID [facility] Stop: 07/11/21 08:59 Last Admin: 06/15/21 07:49 Dose: 6.25 mg Documented by: Dextrose (Dextrose 50% 50 Ml Syringe) 25 - 50 ml IV UD PRN; Protocol PRN Reason: Hypoglycemia Protocol Stop: 07/11/21 01:39 Glucagon (Glucagon For Inj 1 Mg Vial) 1 mg SQ UD PRN; Protocol PRN Reason: Hypoglycemia Protocol Stop: 07/11/21 01:39 Glucose (Glucose 10 Tabs/Tube) 4 - 8 tabs PO UD PRN; Protocol PRN Reason: Hypoglycemia Protocol Stop: 07/11/21 01:39 Glucose (Glucose 40% Gel 15 Gm Tube) 15 - 30 gm PO UD PRN; Protocol PRN Reason: Hypoglycemia Protocol Stop: 07/11/21 01:39 Hydroxychloroquine Sulfate (Hydroxychloroquine Sulfate 200 Mg Tab) 200 mg PO BID [facility] Stop: 07/14/21 20:59 Last Admin: 06/15/21 07:48 Dose: 200 mg Documented by: Dexamethasone 6 mg/ Syringe 1.5 mls @ 1 mls/min IV Q24H [facility] Stop: 07/11/21 20:59 Last Admin: 06/15/21 07:47 Dose: 1 mls/min Documented by: Ibuprofen (Ibuprofen 200 Mg Tab) 400 mg PO TID PRN PRN Reason: Pain Stop: 07/14/21 10:23 Insulin Aspart (Insulin Aspart Per Unit) 0 units SC ACHS [facility] Stop: 07/11/21 07:29 Last Admin: 06/15/21 12:20 Dose: 6 units Documented by: Insulin Glargine (Insulin Glargine Solostar 100 Units/Ml 3 Ml Pen) 5 units SC BID [facility] Stop: 07/11/21 08:59 Last Admin: 06/15/21 07:56 Dose: 5 units Documented by: Lisinopril (Lisinopril 20 Mg Tab) 20 mg PO QPM [facility] Stop: 07/11/21 20:59 Last Admin: 06/11/21 22:37 Dose: 20 mg Documented by: Melatonin (Melatonin 3 Mg Tab) 3 mg PO HS PRN PRN Reason: Sleep Stop: 07/12/21 18:43 Last Admin: 06/14/21 21:19 Dose: 3 mg Documented by: Miscellaneous (Carbohydrates For Hypoglycemia ) 15 - 30 gm PO UD PRN PRN Reason: Hypoglycemia Protocol Stop: 07/11/21 01:39 Ondansetron HCl (Ondansetron Inj 2 Mg/Ml 2 Ml Vial) 4 mg IV Q6H PRN PRN Reason: Nausea Stop: 07/11/21 01:39 Pantoprazole Sodium (Pantoprazole 40 Mg Tab) 40 mg PO QPM [facility] Stop: 07/11/21 20:59 Last Admin: 06/14/21 21:20 Dose: 40 mg Documented by: Rivaroxaban (Rivaroxaban 15 Mg Tab) 15 mg PO BID [facility] Stop: 07/01/21 21:01 Last Admin: 06/15/21 07:48 Dose: 15 mg Documented by: Sodium Chloride (Sodium Chlor 7% 4 Ml Neb) 4 ml NEB BIDR [facility] Stop: 07/12/21 06:59 Last Admin: 06/15/21 07:18 Dose: 4 ml Documented by: PG Care Time/CCT Total # of Minutes Spent Total Time Spent with Patient: Total time spent is greater than 50% in coordination of care (as documented) at patient's floor/unit and/or counseling patient: Coding Level of Care Code 38571 Subseq Hosp Care Lvl 2 Diagnoses COVID-19 U07.1 Acute respiratory failure with hypoxia J96.01 Pulmonary emboli I26.99 GERD (gastroesophageal reflux disease) K21.9 Diabetes E11.9 CAD (coronary artery disease) I25.10 Hypomagnesemia E83.42 Metabolic acidosis E87.2 Hyponatremia E87.1
[2021-06-15] MEDS: MELATONIN 3 MG TAB PO PRN (21:16)
[2021-06-15] MEDS: PANTOprazole 40 MG TAB PO SCH (21:16)
[2021-06-16] MEDS: ALBUT/IPRATROP 3MG/0.5MG NEB 3 ML VIAL NEB SCH ×2 (07:19→19:16)
[2021-06-16] MEDS: SODIUM CHLOR 7% 4 ML NEB NEB SCH ×2 (07:20→19:16)
[2021-06-16 08:19] LABS: BUN Creatinine Ratio 28.4 (10-20); C Reactive Protein 3.62 mg/dl (0-0.5); Calcium 9.2 mg/dl (8.5-10.1); Creatinine Clr Calc Pharmacy 119.5 ml/min; Est GFR (African American) 120.2 ml/min; Est GFR (Non-African American) 103.7 ml/min; Magnesium 1.6 mg/dl (1.7-2.4)
[2021-06-16] MEDS: dexAMETHasone 6 MG in SYRINGE 0 ML IV SCH (08:21)
[2021-06-16] MEDS: BARICITINIB 2 MG TAB PO SCH (08:22)
[2021-06-16] MEDS: carvediloL 6.25 MG TAB PO SCH ×3 (08:22→21:41)
[2021-06-16] MEDS: ASPIRIN 81 MG ECTAB PO SCH (08:22)
[2021-06-16] MEDS: RIVAROXABAN 15 MG TAB PO SCH ×2 (08:23→21:41)
[2021-06-16] MEDS: HYDROXYCHLOROQUINE SULFATE 200 MG TAB PO SCH ×3 (08:23→21:41)
[2021-06-16] MEDS: INSULIN GLARGINE SOLOSTAR 100 UNITS/ML 3 ML PEN SC SCH ×2 (08:55→21:32)
[2021-06-16] MEDS: INSULIN ASPART PER UNIT SC SCH ×4 (08:55→21:32)
[2021-06-16] MEDS: MAGNESIUM SULFATE / D5W 1 GM/100 ML BAG IV SCH ×2 (11:35→13:17)
--- NOTE | 2021-06-16 11:47 | Hospitalist Progress Note ---
Date of Service June 16, 2021 Assessment & Plan (1) COVID-19: Plan: Elevated CRP of 18.92 on admission, trended down to 9 then 6 06/14, showing appropriate response Patient reports recently having the flu in April, feels like he never quite recovered. He also reports having PNA 7x in the past Has a h/o SLE on HQN D-dimer 29,000 after admission--> CTA Chest shows + bilateral numerous subsegmental upper lobe PEs and extensive PNA down to 13L wall high flow today, off Vapotherm, he is very happy about this dexamethasone 6mg IV daily, day 6 baricitinib 4mg daily, day 6 encourage flutter valve, incentive spirometer (able to pull > 2000mL consistently) prone as much as possible, lay on left side, encouraged him to do this no need for Lasix -no role for Remdesevir given prolonged course - no role for antibiotics as procalcitonin is normal (2) Acute respiratory failure with hypoxia: Plan: 06/16 covid PNA as above continue suplemental O2 pulm toilet, add nebs prn really improved today at 13L wall high flow, off Vapotherm subjectively he feels a lot better, able to take a deeper breath working on reducing flow and FiO2 further discussed going home once down to 2-3L at rest (3) Pulmonary emboli: Plan: as above, multiple bilat subsegmental PEs on CTA CHest they are very small, nothing central, doubt that they are contributing to hypoxemia Xarelto 15mg BID x 3 weeks then 20mg daily Check venous Dopplers--> negative. If had bleeding issues, would be ok to stop anticoagulation (4) GERD (gastroesophageal reflux disease): Plan: Chronic. Well controlled -Continue Protonix 40mg po daily (5) Diabetes: Plan: Blood sugar adequately controlled, at risk for hyperglycemia due to steroids -Hold Metformin, Trulicity, and Jardiance -Lantus 5u BID -ISS sugars well controlled, all below 200, no hypoglycemic episodes, continue to monitor (6) CAD (coronary artery disease): Plan: With a h/o AK in 2008, a total of 11 stents since that time, most recent in 10/2017 No cardiac issues ie angina or exercise intolerance prior to admission Discussed need for anticoagulation with his [place] [employer], Dr. Edu Arteaga, at [facility]--> ok to dc Plavix to avoid triple tx -Continue ASA, Carvedilol and Lisinopril on Repatha for cholesterol, administered on 06/13 (7) Hypomagnesemia: Plan: repeat tomorrow (8) Metabolic acidosis: Plan: resolved (9) Hyponatremia: Plan: stable Plan: Ppx - Xarelto Code - Full per discussion with patient Dispo - continue to wean oxygen, go home once down to 2-3L Admission and Anticipated Discharge Date Admission Date: June 11, 2021 Subjective doing great, down to 13L wall high flow, says it is easier to breathe off the Vapotherm checked labs, Cr is normal, Mag a little low, CRP down to 3 from 6 eating great, making urine, moving bowels he is up doing exercises, coughing up sputum, feels great Review of Systems Review of Systems: All systems reviewed & are unremarkable except as noted in Subjective Respiratory: + cough, + dyspnea on exertion and + sputum production; no dyspnea Physical Exam Physical Exam: General: well developed, well nourished, ill appearing but not in distress Neck: supple, trachea midline, normal thyroid Lungs: clear to auscultation bilaterally, + tachypnea, no accessory muscle use, not in respiratory distress, + cough Heart: regular S1 and S2, no murmur, peripheral pulses normal, capillary refill normal, no edema Abdomen: soft, NT, ND, + BS, no hepatomegaly, normal to percussion Extremities: normal in appearance, no cyanosis, no petechiae, strength is 5/5 bilaterally Neuro: awake, cooperative, moves all extremities, no focal motor deficits, CN II-XII intact, sensation in extremities intact, normal speech Skin: warm, dry, no rash, normal turgor Psych: Awake, alert oriented x 3, euthymic affect Results & Data Results & Data ([facility]) Vital Signs (Past 12 Hours) Vital Signs Temp Pulse Pulse Resp BP Pulse Ox 06/16/21 11:42 36.6 C 67 18 121/75 95 06/16/21 09:59 75 06/16/21 07:41 36.8 C 89 20 99/58 L 89 L 06/16/21 07:21 79 20 90 06/16/21 07:20 79 20 90 06/16/21 06:30 36.7 C 77 22 104/62 94 02/02/22 04:07 36.5 C 79 19 116/71 95 06/16/21 03:05 77 18 92 Laboratory Results Laboratory Results - last 24 hr 06/15/21 06/15/21 06/16/21 16:40 20:15 07:25 Sodium 134 L Potassium 4.0 Chloride 101 Carbon Dioxide 25 Anion Gap 8 BUN 19 Creatinine 0.67 Est Cr Clr Drug Dosing 119.5 Est GFR ( Amer) 120.2 Est GFR (Non-Af Amer) 103.7 BUN/Creatinine Ratio 28.4 H Glucose 118 H POC Glucose 264 H 159 H Calcium 9.2 Magnesium 1.6 L C-Reactive Protein 3.62 H 06/16/21 06/16/21 07:36 11:38 Sodium Potassium Chloride Carbon Dioxide Anion Gap BUN Creatinine Est Cr Clr Drug Dosing Est GFR ( Amer) Est GFR (Non-Af Amer) BUN/Creatinine Ratio Glucose POC Glucose 108 H 159 H Calcium Magnesium C-Reactive Protein Medications Administered Current Inpatient Medications Acetaminophen (Acetaminophen 325 Mg Tab) 650 mg PO Q4H PRN PRN Reason: pain/fever Stop: 07/11/21 01:39 Last Admin: 06/14/21 08:47 Dose: 650 mg Documented by: Albuterol (Albut/Ipratrop 3mg/0.5mg Neb 3 Ml Vial) 3 ml NEB BIDR [facility]; Protocol Stop: 07/12/21 06:59 Last Admin: 06/16/21 07:19 Dose: 3 ml Documented by: Aspirin (Aspirin 81 Mg Ectab) 81 mg PO QAM [facility] Stop: 07/11/21 08:59 Last Admin: 06/16/21 08:22 Dose: 81 mg Documented by: Baricitinib (Baricitinib 2 Mg Tab) 4 mg PO DAILY [facility] Stop: 06/24/21 09:01 Last Admin: 06/16/21 08:22 Dose: 4 mg Documented by: Benzonatate (Benzonatate 100 Mg Capsule) 200 mg PO TID PRN PRN Reason: Cough Stop: 07/11/21 01:39 Carvedilol (Carvedilol 6.25 Mg Tab) 6.25 mg PO BID [facility] Stop: 07/11/21 08:59 Last Admin: 06/16/21 08:28 Dose: 6.25 mg Documented by: Dextrose (Dextrose 50% 50 Ml Syringe) 25 - 50 ml IV UD PRN; Protocol PRN Reason: Hypoglycemia Protocol Stop: 07/11/21 01:39 Glucagon (Glucagon For Inj 1 Mg Vial) 1 mg SQ UD PRN; Protocol PRN Reason: Hypoglycemia Protocol Stop: 07/11/21 01:39 Glucose (Glucose 10 Tabs/Tube) 4 - 8 tabs PO UD PRN; Protocol PRN Reason: Hypoglycemia Protocol Stop: 07/11/21 01:39 Glucose (Glucose 40% Gel 15 Gm Tube) 15 - 30 gm PO UD PRN; Protocol PRN Reason: Hypoglycemia Protocol Stop: 07/11/21 01:39 Hydroxychloroquine Sulfate (Hydroxychloroquine Sulfate 200 Mg Tab) 200 mg PO BID [facility] Stop: 07/14/21 20:59 Last Admin: 06/16/21 08:27 Dose: 200 mg Documented by: Dexamethasone 6 mg/ Syringe 1.5 mls @ 1 mls/min IV Q24H [facility] Stop: 07/11/21 20:59 Last Admin: 06/16/21 08:21 Dose: 1 mls/min Documented by: Magnesium Sulfate/Dextrose (Magnesium Sulfate / D5w) 1 gm in 100 mls @ 50 mls/hr IV Q2H [facility] Stop: 06/16/21 13:59 Last Admin: 06/16/21 11:35 Dose: 50 mls/hr Documented by: Ibuprofen (Ibuprofen 200 Mg Tab) 400 mg PO TID PRN PRN Reason: Pain Stop: 07/14/21 10:23 Insulin Aspart (Insulin Aspart Per Unit) 0 units SC ACHS [facility] Stop: 07/11/21 07:29 Last Admin: 06/16/21 08:55 Dose: 4 units Documented by: Insulin Glargine (Insulin Glargine Solostar 100 Units/Ml 3 Ml Pen) 5 units SC BID [facility] Stop: 07/11/21 08:59 Last Admin: 06/16/21 08:55 Dose: 5 units Documented by: Lisinopril (Lisinopril 20 Mg Tab) 20 mg PO QPM [facility] Stop: 07/11/21 20:59 Last Admin: 06/11/21 22:37 Dose: 20 mg Documented by: Melatonin (Melatonin 3 Mg Tab) 3 mg PO HS PRN PRN Reason: Sleep Stop: 07/12/21 18:43 Last Admin: 06/15/21 21:16 Dose: 3 mg Documented by: Miscellaneous (Carbohydrates For Hypoglycemia ) 15 - 30 gm PO UD PRN PRN Reason: Hypoglycemia Protocol Stop: 07/11/21 01:39 Ondansetron HCl (Ondansetron Inj 2 Mg/Ml 2 Ml Vial) 4 mg IV Q6H PRN PRN Reason: Nausea Stop: 07/11/21 01:39 Pantoprazole Sodium (Pantoprazole 40 Mg Tab) 40 mg PO QPM [facility] Stop: 07/11/21 20:59 Last Admin: 06/15/21 21:16 Dose: 40 mg Documented by: Rivaroxaban (Rivaroxaban 15 Mg Tab) 15 mg PO BID [facility] Stop: 07/01/21 21:01 Last Admin: 06/16/21 08:23 Dose: 15 mg Documented by: Sodium Chloride (Sodium Chlor 7% 4 Ml Neb) 4 ml NEB BIDR [facility] Stop: 07/12/21 06:59 Last Admin: 06/16/21 07:20 Dose: 4 ml Documented by: PG Care Time/CCT Total # of Minutes Spent Total Time Spent with Patient: Total time spent is greater than 50% in coordination of care (as documented) at patient's floor/unit and/or counseling patient: Coding Level of Care Code 01320 Subseq Hosp Care Lvl 2 Diagnoses COVID-19 U07.1 Acute respiratory failure with hypoxia J96.01 Pulmonary emboli I26.99 GERD (gastroesophageal reflux disease) K21.9 Diabetes E11.9 CAD (coronary artery disease) I25.10 Hypomagnesemia E83.42 Metabolic acidosis E87.2 Hyponatremia E87.1
[2021-06-16] MEDS: PANTOprazole 40 MG TAB PO SCH (21:41)
[2021-06-16] MEDS: MELATONIN 3 MG TAB PO PRN (21:41)
[2021-06-17] MEDS: SODIUM CHLOR 7% 4 ML NEB NEB SCH ×2 (07:25→19:44)
[2021-06-17] MEDS: ALBUT/IPRATROP 3MG/0.5MG NEB 3 ML VIAL NEB SCH ×2 (07:25→19:44)
[2021-06-17 08:22] LABS: Hematocrit (blood only) 38.8 % (42-52); Hemoglobin 13.2 g/dL (14.0-18.0); Mean Corpuscular Hemoglobin 30.1 pg (25-34); Mean Corpuscular Volume 88.6 fL (80-100); Platelet Count 258 K/uL (130-400); RDW Coefficient of Variation 12.8 % (11.5-14.5); RDW Standard Deviation 41.5 fL (36.4-46.3); Red Blood Count 4.38 M/uL (4.7-6.1); White Blood Count 14.68 K/uL (4.8-10.8)
[2021-06-17] MEDS: dexAMETHasone 6 MG in SYRINGE 0 ML IV SCH (08:29)
[2021-06-17] MEDS: RIVAROXABAN 15 MG TAB PO SCH ×2 (08:30→20:53)
[2021-06-17] MEDS: HYDROXYCHLOROQUINE SULFATE 200 MG TAB PO SCH ×2 (08:30→20:53)
[2021-06-17] MEDS: BARICITINIB 2 MG TAB PO SCH (08:30)
[2021-06-17] MEDS: carvediloL 6.25 MG TAB PO SCH ×2 (08:30→20:53)
[2021-06-17] MEDS: ASPIRIN 81 MG ECTAB PO SCH (08:30)
[2021-06-17 08:52] LABS: Creatinine Clr Calc Pharmacy 114.4 ml/min; Est GFR (African American) 118.1 ml/min; Est GFR (Non-African American) 101.9 ml/min
[2021-06-17] MEDS: INSULIN ASPART PER UNIT SC SCH ×4 (09:00→21:01)
[2021-06-17] MEDS: INSULIN GLARGINE SOLOSTAR 100 UNITS/ML 3 ML PEN SC SCH ×2 (09:02→21:01)
--- NOTE | 2021-06-17 11:00 | Hospitalist Progress Note ---
Date of Service June 17, 2021 Assessment & Plan (1) COVID-19: Plan: Elevated CRP of 18.92 on admission, trended down to 9 then 6 06/14, now 3 on 06/17 Patient reports recently having the flu in April, feels like he never quite recovered. He also reports having PNA 7x in the past Has a h/o SLE on HQN D-dimer 29,000 after admission--> CTA Chest shows + bilateral numerous subsegmental upper lobe PEs and extensive PNA down to 9L wall high flow today, off Vapotherm, he is very happy about this dexamethasone 6mg IV daily, day 7 baricitinib 4mg daily, day 7 encourage flutter valve, incentive spirometer (able to pull > 2000mL consistently) prone as much as possible, lay on left side, encouraged him to do this no need for Lasix -no role for Remdesevir given prolonged course - no role for antibiotics as procalcitonin is normal (2) Acute respiratory failure with hypoxia: Plan: 06/16 covid PNA as above continue suplemental O2 pulm toilet, add nebs prn really improved today at 9L wall high flow, off Vapotherm for two days subjectively he feels a lot better, able to take a deeper breath working on reducing flow and FiO2 further discussed going home once down to 2-3L at rest (3) Pulmonary emboli: Plan: as above, multiple bilat subsegmental PEs on CTA CHest they are very small, nothing central, doubt that they are contributing to hypoxemia Xarelto 15mg BID x 3 weeks then 20mg daily Check venous Dopplers--> negative. If had bleeding issues, would be ok to stop anticoagulation (4) GERD (gastroesophageal reflux disease): Plan: Chronic. 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, at [facility]--> ok to dc Plavix to avoid triple tx -Continue ASA, Carvedilol and Lisinopril on Repatha for cholesterol, administered on 06/13 (7) Hypomagnesemia: Plan: repeat tomorrow (8) Metabolic acidosis: Plan: resolved (9) Hyponatremia: Plan: stable Plan: Ppx - Xarelto Code - Full per discussion with patient Dispo - continue to wean oxygen, go home once down to 2-3L Admission and Anticipated Discharge Date Admission Date: June 11, 2021 Subjective patient doing great, down to 9L, sitting in chair discussed upcoming trip to [place] to [place] on 06/27, told him I would not recommend it, especially if on oxygen would not want him to have acute issue far away from home or while traveling he is eating well, drinking well, ambulating in the room, laying prone periodically awaiting CXR today, just routine follow up Review of Systems Review of Systems: All systems reviewed & are unremarkable except as noted in Subjective Respiratory: + cough, + dyspnea, + dyspnea on exertion and + sputum production Physical Exam Physical Exam: General: well developed, well nourished, ill appearing but not in distress Neck: supple, trachea midline, normal thyroid Lungs: clear to auscultation bilaterally, + tachypnea, no accessory muscle use, not in respiratory distress, + cough Heart: regular S1 and S2, no murmur, peripheral pulses normal, capillary refill normal, no edema Abdomen: soft, NT, ND, + BS, no hepatomegaly, normal to percussion Extremities: normal in appearance, no cyanosis, no petechiae, strength is 5/5 bilaterally Neuro: awake, cooperative, moves all extremities, no focal motor deficits, CN II-XII intact, sensation in extremities intact, normal speech Skin: warm, dry, no rash, normal turgor Psych: Awake, alert oriented x 3, euthymic affect Results & Data Results & Data ([facility]) Vital Signs (Past 12 Hours) Vital Signs Temp Pulse Pulse Resp BP Pulse Ox 06/17/21 07:45 36.6 C 78 18 101/66 92 06/17/21 07:25 75 20 90 06/17/21 04:47 36.5 C 66 20 99/62 L 95 06/17/21 00:27 36.6 C 68 20 110/67 96 02/03/22 00:00 64 Medications Administered Current Inpatient Medications Acetaminophen (Acetaminophen 325 Mg Tab) 650 mg PO Q4H PRN PRN Reason: pain/fever Stop: 07/11/21 01:39 Last Admin: 06/14/21 08:47 Dose: 650 mg Documented by: Albuterol (Albut/Ipratrop 3mg/0.5mg Neb 3 Ml Vial) 3 ml NEB BIDR [facility]; Protocol Stop: 07/12/21 06:59 Last Admin: 06/17/21 07:25 Dose: 3 ml Documented by: Aspirin (Aspirin 81 Mg Ectab) 81 mg PO QAM [facility] Stop: 07/11/21 08:59 Last Admin: 06/17/21 08:30 Dose: 81 mg Documented by: Baricitinib (Baricitinib 2 Mg Tab) 4 mg PO DAILY [facility] Stop: 06/24/21 09:01 Last Admin: 06/17/21 08:30 Dose: 4 mg Documented by: Benzonatate (Benzonatate 100 Mg Capsule) 200 mg PO TID PRN PRN Reason: Cough Stop: 07/11/21 01:39 Carvedilol (Carvedilol 6.25 Mg Tab) 6.25 mg PO BID [facility] Stop: 07/11/21 08:59 Last Admin: 06/17/21 08:30 Dose: 6.25 mg Documented by: Dextrose (Dextrose 50% 50 Ml Syringe) 25 - 50 ml IV UD PRN; Protocol PRN Reason: Hypoglycemia Protocol Stop: 07/11/21 01:39 Glucagon (Glucagon For Inj 1 Mg Vial) 1 mg SQ UD PRN; Protocol PRN Reason: Hypoglycemia Protocol Stop: 07/11/21 01:39 Glucose (Glucose 10 Tabs/Tube) 4 - 8 tabs PO UD PRN; Protocol PRN Reason: Hypoglycemia Protocol Stop: 07/11/21 01:39 Glucose (Glucose 40% Gel 15 Gm Tube) 15 - 30 gm PO UD PRN; Protocol PRN Reason: Hypoglycemia Protocol Stop: 07/11/21 01:39 Hydroxychloroquine Sulfate (Hydroxychloroquine Sulfate 200 Mg Tab) 200 mg PO BID [facility] Stop: 07/14/21 20:59 Last Admin: 06/17/21 08:30 Dose: 200 mg Documented by: Dexamethasone 6 mg/ Syringe 1.5 mls @ 1 mls/min IV Q24H [facility] Stop: 07/11/21 20:59 Last Admin: 06/17/21 08:29 Dose: 1 mls/min Documented by: Ibuprofen (Ibuprofen 200 Mg Tab) 400 mg PO TID PRN PRN Reason: Pain Stop: 07/14/21 10:23 Insulin Aspart (Insulin Aspart Per Unit) 0 units SC ACHS [facility] Stop: 07/11/21 07:29 Last Admin: 06/17/21 09:00 Dose: 5 units Documented by: Insulin Glargine (Insulin Glargine Solostar 100 Units/Ml 3 Ml Pen) 5 units SC BID [facility] Stop: 07/11/21 08:59 Last Admin: 06/17/21 09:02 Dose: 5 units Documented by: Lisinopril (Lisinopril 20 Mg Tab) 20 mg PO QPM [facility] Stop: 07/11/21 20:59 Last Admin: 06/11/21 22:37 Dose: 20 mg Documented by: Melatonin (Melatonin 3 Mg Tab) 3 mg PO HS PRN PRN Reason: Sleep Stop: 07/12/21 18:43 Last Admin: 06/16/21 21:41 Dose: 3 mg Documented by: Miscellaneous (Carbohydrates For Hypoglycemia ) 15 - 30 gm PO UD PRN PRN Reason: Hypoglycemia Protocol Stop: 07/11/21 01:39 Ondansetron HCl (Ondansetron Inj 2 Mg/Ml 2 Ml Vial) 4 mg IV Q6H PRN PRN Reason: Nausea Stop: 07/11/21 01:39 Pantoprazole Sodium (Pantoprazole 40 Mg Tab) 40 mg PO QPM [facility] Stop: 07/11/21 20:59 Last Admin: 06/16/21 21:41 Dose: 40 mg Documented by: Rivaroxaban (Rivaroxaban 15 Mg Tab) 15 mg PO BID [facility] Stop: 07/01/21 21:01 Last Admin: 06/17/21 08:30 Dose: 15 mg Documented by: Sodium Chloride (Sodium Chlor 7% 4 Ml Neb) 4 ml NEB BIDR [facility] Stop: 07/12/21 06:59 Last Admin: 06/17/21 07:25 Dose: 4 ml Documented by: PG Care Time/CCT Total # of Minutes Spent Total Time Spent with Patient: Total time spent is greater than 50% in coordination of care (as documented) at patient's floor/unit and/or counseling patient: Coding Level of Care Code 52028 Subseq Hosp Care Lvl 2 Diagnoses COVID-19 U07.1 Acute respiratory failure with hypoxia J96.01 Pulmonary emboli I26.99 GERD (gastroesophageal reflux disease) K21.9 Diabetes E11.9 CAD (coronary artery disease) I25.10 Hypomagnesemia E83.42 Metabolic acidosis E87.2 Hyponatremia E87.1
--- NOTE | 2021-06-17 11:50 | XRay Report ---
XR chest 1V portable HISTORY: 61 years-old Male COVID follow up acute shortness of breath. Covid follow-up COMPARISON: CTA chest 06/11/2021, chest radiograph 06/10/2021 TECHNIQUE: Portable AP view of the chest FINDINGS: Cardiac mediastinal and hilar silhouettes are unchanged. Interstitial coarsening with multifocal bila teral airspace opacities, not significantly changed. There is no pneumothorax or large pleural effusi on. Degenerative changes of the shoulders and spine. IMPRESSION: No significant change of the multifocal bilateral airspace opacities suggestive of viral pneumonia. ACT 112: Negative or not required by law. The above report was generated using voice recognition software. It may contain grammatical, syntax o r spelling errors. Electronically signed by: Mason Graves M.D. 06/17/2021 11:48 AM
[2021-06-17] MEDS: PANTOprazole 40 MG TAB PO SCH ×2 (20:53→21:33)
[2021-06-18] MEDS: ALBUT/IPRATROP 3MG/0.5MG NEB 3 ML VIAL NEB SCH ×2 (07:11→19:21)
[2021-06-18] MEDS: SODIUM CHLOR 7% 4 ML NEB NEB SCH ×2 (07:11→19:21)
[2021-06-18] MEDS: INSULIN ASPART PER UNIT SC SCH ×4 (08:03→20:40)
[2021-06-18] MEDS: INSULIN GLARGINE SOLOSTAR 100 UNITS/ML 3 ML PEN SC SCH ×2 (08:04→20:40)
[2021-06-18] MEDS: dexAMETHasone 6 MG in SYRINGE 0 ML IV SCH (08:31)
[2021-06-18] MEDS: carvediloL 6.25 MG TAB PO SCH ×2 (08:32→20:58)
[2021-06-18] MEDS: HYDROXYCHLOROQUINE SULFATE 200 MG TAB PO SCH ×2 (08:32→20:59)
[2021-06-18] MEDS: RIVAROXABAN 15 MG TAB PO SCH ×2 (08:32→21:00)
[2021-06-18] MEDS: ASPIRIN 81 MG ECTAB PO SCH (08:33)
[2021-06-18] MEDS: BARICITINIB 2 MG TAB PO SCH (08:45)
--- NOTE | 2021-06-18 10:45 | Hospitalist Progress Note ---
Date of Service June 18, 2021 Assessment & Plan (1) COVID-19: Plan: Elevated CRP of 18.92 on admission, trended down to 9 then 6 06/14, now 3 on 06/17 Patient reports recently having the flu in April, feels like he never quite recovered. He also reports having PNA 7x in the past Has a h/o SLE on HQN D-dimer 29,000 after admission--> CTA Chest shows + bilateral numerous subsegmental upper lobe PEs and extensive PNA down to 7L wall high flow today, off Vapotherm for a few days now, doing better each day dexamethasone 6mg IV daily, day 8 baricitinib 4mg daily, day 8 encourage flutter valve, incentive spirometer (able to pull > 2000mL consistently) prone as much as possible, lay on left side, encouraged him to do this no need for Lasix -no role for Remdesevir given prolonged course - no role for antibiotics as procalcitonin is normal anticipate he will be here over the weekend, might be ready as early as Monday, depends on oxygen requirements (2) Acute respiratory failure with hypoxia: Plan: 06/16 covid PNA as above continue suplemental O2 pulm toilet, add nebs prn really improved today at 7L wall high flow, off Vapotherm for three days subjectively he feels a lot better, able to take a deeper breath working on reducing flow and FiO2 further discussed going home once down to 2-3L at rest (3) Pulmonary emboli: Plan: as above, multiple bilat subsegmental PEs on CTA CHest they are very small, nothing central, doubt that they are contributing to hypoxemia Xarelto 15mg BID x 3 weeks then 20mg daily Check venous Dopplers--> negative. If had bleeding issues, would be ok to stop anticoagulation (4) GERD (gastroesophageal reflux disease): Plan: Chronic. Well controlled -Continue Protonix 40mg po daily (5) Diabetes: Plan: Blood sugar adequately controlled, at risk for hyperglycemia due to steroids -Hold Metformin, Trulicity, and Jardiance -Lantus 5u BID -ISS sugars well controlled, all below 200 the past 24 hours, no hypoglycemic episodes (6) CAD (coronary artery disease): Plan: With a h/o [place] in 2008, a total of 11 stents since that time, most recent in 10/2017 No cardiac issues ie angina or exercise intolerance prior to admission Discussed need for anticoagulation with his Outside Solar Sales Consultant, Dr. Edu Arteaga, at [facility]--> ok to dc Plavix to avoid triple tx -Continue ASA, Carvedilol and Lisinopril on Repatha for cholesterol, administered on 06/13 (7) Hypomagnesemia: Plan: resolved (8) Metabolic acidosis: Plan: resolved (9) Hyponatremia: Plan: stable Plan: Ppx - Xarelto Code - Full per discussion with patient Dispo - continue to wean oxygen, go home once down to 2-3L, maybe on Wednesday 06/21? Admission and Anticipated Discharge Date Admission Date: June 11, 2021 Subjective patient continues to improve, feels great, mobilizing sputum, spending a lot of time prone he is down to 7L he requests I write him a letter for upcoming flight in case he needs to cancel it Review of Systems Review of Systems: All systems reviewed & are unremarkable except as noted in Subjective Respiratory: + cough and + dyspnea on exertion; no dyspnea Cardiovascular: no chest pain Gastrointestinal: no constipation (BM today) Physical Exam Physical Exam: General: well developed, well nourished, no distress Neck: supple, trachea midline, normal thyroid Lungs: clear to auscultation bilaterally, normal respiratory effort, no accessory muscle use, + cough Heart: regular S1 and S2, no murmur, peripheral pulses normal, capillary refill normal, no edema Abdomen: soft, NT, ND, + BS, no hepatomegaly, normal to percussion Extremities: normal in appearance, no cyanosis, no petechiae, strength is 5/5 bilaterally Neuro: awake, cooperative, moves all extremities, no focal motor deficits, CN II-XII intact, sensation in extremities intact, normal speech Skin: warm, dry, no rash, normal turgor Psych: Awake, alert oriented x 3, euthymic affect Results & Data Results & Data ([facility]) Vital Signs (Past 12 Hours) Vital Signs Temp Pulse Pulse Resp BP Pulse Ox 06/18/21 08:48 36.6 C 98 H 91/62 L 06/18/21 07:11 86 18 94 06/18/21 04:58 36.5 C 73 20 101/67 93 06/18/21 00:15 36.4 C L 67 20 103/66 93 06/18/21 00:00 85 Medications Administered Current Inpatient Medications Acetaminophen (Acetaminophen 325 Mg Tab) 650 mg PO Q4H PRN PRN Reason: pain/fever Stop: 07/11/21 01:39 Last Admin: 06/14/21 08:47 Dose: 650 mg Documented by: Albuterol (Albut/Ipratrop 3mg/0.5mg Neb 3 Ml Vial) 3 ml NEB BIDR [facility]; Protocol Stop: 07/12/21 06:59 Last Admin: 06/18/21 07:11 Dose: 3 ml Documented by: Aspirin (Aspirin 81 Mg Ectab) 81 mg PO QAM [facility] Stop: 07/11/21 08:59 Last Admin: 06/18/21 08:33 Dose: 81 mg Documented by: Baricitinib (Baricitinib 2 Mg Tab) 4 mg PO DAILY [facility] Stop: 06/24/21 09:01 Last Admin: 06/18/21 08:45 Dose: 4 mg Documented by: Benzonatate (Benzonatate 100 Mg Capsule) 200 mg PO TID PRN PRN Reason: Cough Stop: 07/11/21 01:39 Carvedilol (Carvedilol 6.25 Mg Tab) 6.25 mg PO BID [facility] Stop: 07/11/21 08:59 Last Admin: 06/18/21 08:32 Dose: 6.25 mg Documented by: Dextrose (Dextrose 50% 50 Ml Syringe) 25 - 50 ml IV UD PRN; Protocol PRN Reason: Hypoglycemia Protocol Stop: 07/11/21 01:39 Glucagon (Glucagon For Inj 1 Mg Vial) 1 mg SQ UD PRN; Protocol PRN Reason: Hypoglycemia Protocol Stop: 07/11/21 01:39 Glucose (Glucose 10 Tabs/Tube) 4 - 8 tabs PO UD PRN; Protocol PRN Reason: Hypoglycemia Protocol Stop: 07/11/21 01:39 Glucose (Glucose 40% Gel 15 Gm Tube) 15 - 30 gm PO UD PRN; Protocol PRN Reason: Hypoglycemia Protocol Stop: 07/11/21 01:39 Hydroxychloroquine Sulfate (Hydroxychloroquine Sulfate 200 Mg Tab) 200 mg PO BID [facility] Stop: 07/14/21 20:59 Last Admin: 06/18/21 08:32 Dose: 200 mg Documented by: Dexamethasone 6 mg/ Syringe 1.5 mls @ 1 mls/min IV Q24H [facility] Stop: 07/11/21 20:59 Last Admin: 06/18/21 08:31 Dose: 1 mls/min Documented by: Ibuprofen (Ibuprofen 200 Mg Tab) 400 mg PO TID PRN PRN Reason: Pain Stop: 07/14/21 10:23 Insulin Aspart (Insulin Aspart Per Unit) 0 units SC ACHS JERMAINE Stop: 07/11/21 07:29 Last Admin: 06/18/21 08:03 Dose: 1 units Documented by: Insulin Glargine (Insulin Glargine Solostar 100 Units/Ml 3 Ml Pen) 5 units SC BID JERMAINE Stop: 07/11/21 08:59 Last Admin: 06/18/21 08:04 Dose: 5 units Documented by: Lisinopril (Lisinopril 20 Mg Tab) 20 mg PO QPM JERMAINE Stop: 07/11/21 20:59 Last Admin: 06/11/21 22:37 Dose: 20 mg Documented by: Melatonin (Melatonin 3 Mg Tab) 3 mg PO HS PRN PRN Reason: Sleep Stop: 07/12/21 18:43 Last Admin: 06/16/21 21:41 Dose: 3 mg Documented by: Miscellaneous (Carbohydrates For Hypoglycemia ) 15 - 30 gm PO UD PRN PRN Reason: Hypoglycemia Protocol Stop: 07/11/21 01:39 Ondansetron HCl (Ondansetron Inj 2 Mg/Ml 2 Ml Vial) 4 mg IV Q6H PRN PRN Reason: Nausea Stop: 07/11/21 01:39 Pantoprazole Sodium (Pantoprazole 40 Mg Tab) 40 mg PO QPM JERMAINE Stop: 07/11/21 20:59 Last Admin: 06/17/21 21:33 Dose: 40 mg Documented by: Rivaroxaban (Rivaroxaban 15 Mg Tab) 15 mg PO BID [facility] Stop: 07/01/21 21:01 Last Admin: 06/18/21 08:32 Dose: 15 mg Documented by: Sodium Chloride (Sodium Chlor 7% 4 Ml Neb) 4 ml NEB BIDR [facility] Stop: 07/12/21 06:59 Last Admin: 06/18/21 07:11 Dose: 4 ml Documented by: PG Care Time/CCT Total # of Minutes Spent Total Time Spent with Patient: Total time spent is greater than 50% in coordination of care (as documented) at patient's floor/unit and/or counseling patient: Coding Level of Care Code 59984 Subseq Hosp Care Lvl 2 Diagnoses COVID-19 U07.1 Acute respiratory failure with hypoxia J96.01 Pulmonary emboli I26.99 GERD (gastroesophageal reflux disease) K21.9 Diabetes E11.9 CAD (coronary artery disease) I25.10 Hypomagnesemia E83.42 Metabolic acidosis E87.2 Hyponatremia E87.1
[2021-06-18] MEDS: PANTOprazole 40 MG TAB PO SCH (20:59)
[2021-06-18] MEDS ORDERED: PHARMACY GLYCEMIC MGMT CONSULT PRN (21:25)
[2021-06-19] MEDS: INSULIN ASPART PER UNIT SC SCH ×7 (04:13→20:20)
[2021-06-19] MEDS: SODIUM CHLOR 7% 4 ML NEB NEB SCH ×2 (07:15→19:12)
[2021-06-19] MEDS: ALBUT/IPRATROP 3MG/0.5MG NEB 3 ML VIAL NEB SCH ×2 (07:15→19:44)
[2021-06-19] MEDS: INSULIN HUMAN NPH SC SCH (08:30)
[2021-06-19] MEDS: HYDROXYCHLOROQUINE SULFATE 200 MG TAB PO SCH ×2 (08:40→20:14)
[2021-06-19] MEDS: dexAMETHasone 6 MG in SYRINGE 0 ML IV SCH (08:40)
[2021-06-19] MEDS: carvediloL 6.25 MG TAB PO SCH ×2 (08:40→20:14)
[2021-06-19] MEDS: ASPIRIN 81 MG ECTAB PO SCH (08:40)
[2021-06-19] MEDS: RIVAROXABAN 15 MG TAB PO SCH ×2 (08:40→20:14)
[2021-06-19 08:43] LABS: BUN Creatinine Ratio 17.6 (10-20); Calcium 9.2 mg/dl (8.5-10.1); Creatinine Clr Calc Pharmacy 117.8 ml/min; Est GFR (African American) 119.5 ml/min; Est GFR (Non-African American) 103.1 ml/min; Potassium 3.9 mmol/L (3.5-5.1)
[2021-06-19] MEDS: BARICITINIB 2 MG TAB PO SCH (08:53)
[2021-06-19 09:04] LABS: Estimated Average Glucose 171 mg/dl; Hemoglobin A1C 7.6 % (4.5-5.6)
--- NOTE | 2021-06-19 10:46 | Pharmacy Report ---
Pharmacy Glycemic Short Note 2 - Date of Service June 19, 2021 - Glycemic Short BSG Results (Last 24 hours): 06/18/21 06/18/21 06/18/21 11:54 16:13 20:22 Glucose POC Glucose 165 H 264 H 373 H* 06/18/21 06/18/21 06/18/21 20:24 20:55 23:56 Glucose POC Glucose 346 H* 364 H* 213 H 06/19/21 06/19/21 06/19/21 04:08 07:45 08:03 Glucose 130 H POC Glucose 109 H 136 H OUTPATIENT ANTIDIABETIC REGIMEN: * Metformin 1000 mg PO BIDM * Jardiance 10 mg PO qAM * Trulicity 1.5 mg SC weekly (Sundays) * HbA1c 7.6% (06/19/21) ASSESSMENT: * ALBINA is a 61 year old male admitted on 06/11/21 with COVID-19 pneumonia * Pertinent PMH includes CAD (hx of [place] in 2008), active PE, GERD * Patient intermittently hyperglycemic during admission, likely related to IV dexamethasone * Pharmacy consulted yesterday evening for BSG > 300 mg/dL * Will add conservative NPH with IV dexamethasone and tighten Novolog parameters PLAN FOR INPATIENT GLYCEMIC CONTROL: * Hold outpatient oral diabetes medications * Basal insulin * NPH 20 units SC daily with IV dexamethasone (~0.25 unit/kg) * Bolus insulin * NovoLog per scale ACHS or Q6hrs while NPO * Goal Range: Low 110 mg/dL - High 140 mg/dL * Correction Factor: 25 mg/dL/unit * Nutritional / Prandial insulin per carb ratio of 1 unit per 8 grams CHO consumed PLAN FOR DISCHARGE: * HbA1c of 7.6% is slightly above goal of less than 7%, but reasonable to discharge with current outpatient regimen * Patient currently on recommended antidiabetic medications (SGLT2 inhibitor + GLP-1 RA) given ASCVD (hx of [place]) * Support Patient Self-Management * Healthy Lifestyle (diet and exercise) * Disease self-management (SMBG) * Prevention of complications (BP, Lipid goals, Immunizations) * Consider outpatient Diabetes Self-Management Education & Support
--- NOTE | 2021-06-19 13:13 | Hospitalist Progress Note ---
Date of Service June 19, 2021 Assessment & Plan (1) COVID-19: Plan: Covid-19 pneumonia Elevated CRP of 18.92 on admission, trended down to 3-4 Patient reports recently having the flu in April, feels like he never quite recovered. He also reports having PNA 7x in the past Has a h/o SLE on HQN D-dimer 29,000 after admission--> CTA Chest shows + bilateral numerous subsegmental upper lobe PEs and extensive PNA Was on Vapotherm for many days, now weaning down and doing much better-on 4 L nasal cannula now Continue dexamethasone 6mg IV daily, day 9 baricitinib 4mg daily, day 9 encourage flutter valve, incentive spirometer (able to pull > 2000mL consistent ly) prone as much as possible, lay on left side, encouraged him to do this no need for Lasix -no role for Remdesevir given prolonged course prior to admission - no role for antibiotics as procalcitonin is normal Expect he will likely be discharged by Monday Will need a two-step walk test prior to discharge (2) Acute respiratory failure with hypoxia: Plan: 06/16 covid PNA as above Does have multiple bilateral subsegmental PEs but these are not contributing to his hypoxia continue suplemental O2 and wean off as tolerated pulm toilet, continue nebs prn (3) Pulmonary emboli: Plan: as above, multiple bilat subsegmental PEs on CTA CHest they are very small, nothing central, doubt that they are contributing to hypoxemia Xarelto 15mg BID x 3 weeks then 20mg daily starting on 07/03 Recommend 3 months of anticoagulation proBNP and troponin both negative, hemodynamically stable-no need for echocardiogram Checked venous Dopplers--> negative. If had bleeding issues, would be ok to stop anticoagulation (4) GERD (gastroesophageal reflux disease): Plan: Chronic. Well controlled -Continue Protonix 40mg po daily (5) Diabetes: Plan: Blood sugar adequately controlled, at risk for hyperglycemia due to steroids- blood sugar in 300s last evening which was an isolated event HgbA1C 7.6% -Continue to hold Metformin, Trulicity, and Jardiance Was on Lantus and NovoLog, but pharmacy was consulted overnight and he is now started on NPH-we'll need to discontinue this after tomorrow as his steroid course will be completed Continue NovoLog supplemental insulin (6) CAD (coronary artery disease): Plan: With a h/o [place] in 2008, a total of 11 stents since that time, most recent in 10/2017 No cardiac issues ie angina or exercise intolerance prior to admission Discussed need for anticoagulation with his Vehicle Operator Technician, Dr. 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 Admission and Anticipated Discharge Date Admission Date: June 11, 2021 Subjective Patient reports he feels "great!" Denies any shortness of breath. He is only coughing up small amounts of sputum at this point. Continues to sleep prone 3 to 4 hours a day which does cause some pain in his neck and back. He is ambulating around the room is much as possible. He is now weaned down to 4 L nasal cannula. He is moving his bowels, no diarrhea, no nausea. Eating well. Telemetry is normal sinus rhythm and PVCs with rates in the 70s to 80s. Review of Systems Review of Systems: All systems reviewed & are unremarkable except as noted in HPI & below Physical Exam Constitutional: WD/WN, vitals as above Eyes: + anicteric sclerae Neck: trachea midline, no thyromegaly Respiratory: normal respiratory effort; no cough Auscultation: + bronchial breath sounds (upper lung pelayo); no crackles and no wheezes Cardiovascular: RRR, no murmur, no edema Chest (Breasts): Chest: normal inspection of chest Gastrointestinal (Abdomen): normal bowel sounds, soft, nontender, no hepatosplenomegaly Musculoskeletal: Extremities: extremities normal to inspection; no cyanosis and no clubbing Skin: no rashes, warm and dry Neurologic: moves all extremities and awake; no focal motor deficits Psychiatric: A+Ox3, euthymic affect Lymphatic: no lymphedema Results & Data Results & Data ([facility]) Vital Signs (Past 12 Hours) Vital Signs Temp Pulse Resp BP Pulse Ox 06/19/21 11:41 36.6 C 88 19 109/72 92 06/19/21 07:15 86 18 95 06/19/21 03:38 36.5 C 70 20 97/63 L 94 Laboratory Results 06/19/21 06/19/21 06/19/21 Range/Units 11:35 08:03 08:03 Sodium 133 L (136-145) mmol/L Potassium 3.9 (3.5-5.1) mmol/L Chloride 97 L (98-107) mmol/L Carbon Dioxide 30 (21-32) mmol/L Anion Gap 6 (3-11) BUN 12 (6-23) mg/dl Creatinine 0.68 (0.6-1.4) mg/dl Est Cr Clr Drug Dosing 117.8 ml/min Est GFR ( Amer) 119.5 ml/min Est GFR (Non-Af Amer) 103.1 ml/min BUN/Creatinine Ratio 17.6 (10-20) Glucose 130 H (70-99(Fasting)) mg/dl POC Glucose 136 H (70-99) mg/dl Estimat Average Glucose 171 mg/dl Hemoglobin A1c 7.6 H (4.5-5.6) % Calcium 9.2 (8.5-10.1) mg/dl C-Reactive Protein 4.00 H (0-0.5) mg/dl 06/19/21 06/19/21 06/18/21 Range/Units 07:45 04:08 23:56 Sodium (136-145) mmol/L Potassium (3.5-5.1) mmol/L Chloride (98-107) mmol/L Carbon Dioxide (21-32) mmol/L Anion Gap (3-11) BUN (6-23) mg/dl Creatinine (0.6-1.4) mg/dl Est Cr Clr Drug Dosing ml/min Est GFR ( Amer) ml/min Est GFR (Non-Af Amer) ml/min BUN/Creatinine Ratio (10-20) Glucose (70-99(Fasting)) mg/dl POC Glucose 136 H 109 H 213 H (70-99) mg/dl Estimat Average Glucose mg/dl Hemoglobin A1c (4.5-5.6) % Calcium (8.5-10.1) mg/dl C-Reactive Protein (0-0.5) mg/dl 06/18/21 06/18/21 06/18/21 Range/Units 20:55 20:24 20:22 Sodium (136-145) mmol/L Potassium (3.5-5.1) mmol/L Chloride (98-107) mmol/L Carbon Dioxide (21-32) mmol/L Anion Gap (3-11) BUN (6-23) mg/dl Creatinine (0.6-1.4) mg/dl Est Cr Clr Drug Dosing ml/min Est GFR ( Amer) ml/min Est GFR (Non-Af Amer) ml/min BUN/Creatinine Ratio (10-20) Glucose (70-99(Fasting)) mg/dl POC Glucose 364 H* 346 H* 373 H* (70-99) mg/dl Estimat Average Glucose mg/dl Hemoglobin A1c (4.5-5.6) % Calcium (8.5-10.1) mg/dl C-Reactive Protein (0-0.5) mg/dl PG Care Time/CCT Total # of Minutes Spent Total Time Spent with Patient: Total time spent is greater than 50% in coordination of care (as documented) at patient's floor/unit and/or counseling patient: Coding Level of Care Code 85616 Subseq Hosp Care Lvl 2 Diagnoses COVID-19 U07.1 Acute respiratory failure with hypoxia J96.01 Pulmonary emboli I26.99 GERD (gastroesophageal reflux disease) K21.9 Diabetes E11.9 CAD (coronary artery disease) I25.10 Hypomagnesemia E83.42 Metabolic acidosis E87.2 Hyponatremia E87.1
[2021-06-19] MEDS: PANTOprazole 40 MG TAB PO SCH (20:14)
[2021-06-19] MEDS: lisinopril 10 MG TAB PO SCH (20:16)
[2021-06-20 06:30] LABS: Basophils # (auto) 0.02 K/uL (0-0.2); Basophils % (auto) 0.2 %; Eosinophils # (auto) 0.13 K/uL (0-0.5); Eosinophils % (auto) 1.2 %; Hematocrit (blood only) 34.9 % (42-52); Hemoglobin 12.1 g/dL (14.0-18.0); Immature Granulocytes # (auto) 0.11 K/uL (0.00-0.02); Lymphocytes # (auto) 1.02 K/uL (1.2-3.4); Lymphocytes % (auto) 9.2 %; Mean Corpuscular Hemoglobin 30.9 pg (25-34); Mean Corpuscular Hgb Conc 34.7 g/dL (32-36); Mean Corpuscular Volume 89.3 fL (80-100); Mean Platelet Volume 10.2 fL (7.4-10.4); Monocytes # (auto) 0.56 K/uL (0.11-0.59); Monocytes % (auto) 5.1 %; Neutrophils # (auto) 9.21 K/uL (1.4-6.5); Neutrophils % (auto) 83.3 %; Platelet Count 270 K/uL (130-400); RDW Coefficient of Variation 13.1 % (11.5-14.5); RDW Standard Deviation 42.2 fL (36.4-46.3); Red Blood Count 3.91 M/uL (4.7-6.1); White Blood Count 11.05 K/uL (4.8-10.8)
[2021-06-20 06:59] LABS: Albumin Globulin Ratio 0.9 (0.9-2); Albumin Level 2.8 gm/dl (3.4-5.0); BUN Creatinine Ratio 21.9 (10-20); Bilirubin,Total 0.4 mg/dl (0.2-1.0); Calcium 8.7 mg/dl (8.5-10.1); Creatinine Clr Calc Pharmacy 109.7 ml/min; Est GFR (Non-African American) 100.1 ml/min; Globulin 3.2 gm/dl (2.5-4.0); Magnesium 1.5 mg/dl (1.7-2.4); Potassium 3.9 mmol/L (3.5-5.1)
[2021-06-20] MEDS: SODIUM CHLOR 7% 4 ML NEB NEB SCH ×2 (07:31→19:29)
[2021-06-20] MEDS: ALBUT/IPRATROP 3MG/0.5MG NEB 3 ML VIAL NEB SCH ×2 (07:36→19:44)
[2021-06-20] MEDS: carvediloL 6.25 MG TAB PO SCH ×2 (07:59→20:48)
[2021-06-20] MEDS: RIVAROXABAN 15 MG TAB PO SCH ×2 (08:48→20:48)
[2021-06-20] MEDS: ASPIRIN 81 MG ECTAB PO SCH (08:48)
[2021-06-20] MEDS: BARICITINIB 2 MG TAB PO SCH (08:48)
[2021-06-20] MEDS: dexAMETHasone 6 MG in SYRINGE 0 ML IV SCH (08:48)
[2021-06-20] MEDS: HYDROXYCHLOROQUINE SULFATE 200 MG TAB PO SCH ×2 (08:48→20:48)
[2021-06-20] MEDS: INSULIN ASPART PER UNIT SC SCH ×4 (09:23→20:39)
[2021-06-20] MEDS: INSULIN HUMAN NPH SC SCH (09:24)
[2021-06-20] MEDS: MAGNESIUM SULFATE / D5W 1 GM/100 ML BAG IV SCH ×3 (10:26→15:00)
--- NOTE | 2021-06-20 11:08 | Hospitalist Progress Note ---
Date of Service June 20, 2021 Assessment & Plan (1) COVID-19: Plan: Covid-19 pneumonia Elevated CRP of 18.92 on admission, trended down to 3-4 Patient reports recently having the flu in April, feels like he never quite recovered. He also reports having PNA 7x in the past Has a h/o SLE on HQN D-dimer 29,000 after admission--> CTA Chest shows + bilateral numerous subsegmental upper lobe PEs and extensive PNA Was on Vapotherm for many days, now weaning down and doing much better-weaned down to 3 L nasal cannula now at rest Is ambulating frequently around the room, doing much better Continue dexamethasone 6mg IV daily, day 10-now comleted baricitinib 4mg daily, day 10 continue flutter valve, incentive spirometer (able to pull > 2000mL consistently) prone as much as possible, lay on left side, encouraged him to do this no need for Lasix -no role for Remdesevir given prolonged course prior to admission - no role for antibiotics as procalcitonin is normal Expect he will likely be discharged by Monday Will need a two-step walk test prior to discharge-plan for Monday (2) Acute respiratory failure with hypoxia: Plan: 06/16 covid PNA as above Does have multiple bilateral subsegmental PEs but these are not contributing to his hypoxia continue suplemental O2 and wean off as tolerated pulm toilet, continue nebs prn (3) Pulmonary emboli: Plan: as above, multiple bilat subsegmental PEs on CTA CHest they are very small, nothing central, doubt that they are contributing to hypoxemia Xarelto 15mg BID x 3 weeks then 20mg daily starting on 07/03 Recommend 3 months of anticoagulation proBNP and troponin both negative, hemodynamically stable-no need for echocardiogram Checked venous Dopplers--> negative. If had bleeding issues, would be ok to stop anticoagulation (4) GERD (gastroesophageal reflux disease): Plan: Chronic. Well controlled -Continue Protonix 40mg po daily (5) Diabetes: Plan: Blood sugar adequately controlled, at risk for hyperglycemia due to steroids-b lood sugar again in the 300s today but now improved with insulin HgbA1C 7.6% -Continue to hold Metformin, Trulicity, and Jardiance continue insulin as per Pharmacy-will need to dc NPH as dex now stopped (6) CAD (coronary artery disease): Plan: With a h/o CA in 2008, a total of 11 stents since that time, most recent in 10/2017 No cardiac issues ie angina or exercise intolerance prior to admission Discussed need for anticoagulation with his Oil And Gas Specialist, Dr. Edu Arteaga, at [facility] Presby--> ok to dc Plavix to avoid triple tx -Continue ASA, Carvedilol and Lisinopril on Repatha for cholesterol, administered on 06/13 (7) Hypomagnesemia: Plan: Mag low again today at 1.5 replace with 3 grams IV mag repeat level \\in AM (8) Metabolic acidosis: Plan: resolved (9) Hyponatremia: Plan: stable, mild, likely SIADH secondary to pulmonary process Plan: Ppx - Xarelto Code - Full per discussion with patient Dispo - continue to wean oxygen, go home once down to 2-3L, hopeful for Wednesday 06/21 Admission and Anticipated Discharge Date Admission Date: June 11, 2021 Subjective Feels well, still a mildly productive cough. Walked 300 "laps" around the end of his bed yesterday and plans on doing so again today. Is eating and drinking, moving his bowels. No chest pain. Does feel a little winded with excessive ambulation. Weaned down to 3LNC this AM Tele with NSR, normal rates Review of Systems Review of Systems: All systems reviewed & are unremarkable except as noted in HPI & below Physical Exam Constitutional: WD/WN, vitals as above Eyes: + anicteric sclerae Neck: trachea midline, no thyromegaly Respiratory: normal respiratory effort; no cough Auscultation: + bronchial breath sounds (upper lung pelayo); no crackles and no wheezes Cardiovascular: RRR, no murmur, no edema Chest (Breasts): Chest: normal inspection of chest Gastrointestinal (Abdomen): normal bowel sounds, soft, nontender, no hepatosplenomegaly Musculoskeletal: Extremities: extremities normal to inspection; no cyanosis and no clubbing Skin: no rashes, warm and dry Neurologic: moves all extremities and awake; no focal motor deficits Psychiatric: A+Ox3, euthymic affect Lymphatic: no lymphedema Results & Data Results & Data ([facility]) Vital Signs (Past 12 Hours) Vital Signs Temp Pulse Pulse Resp BP Pulse Ox 06/20/21 07:43 36.4 C L 81 22 97/62 L 94 06/20/21 07:36 80 18 90 06/20/21 03:39 36.4 C L 76 18 95/60 L 95 06/19/21 23:38 36.6 C 85 18 113/67 95 06/19/21 23:10 75 Laboratory Results 06/20/21 06/20/21 06/20/21 Range/Units 07:40 05:58 05:58 WBC 11.05 H (4.8-10.8) K/uL RBC 3.91 L (4.7-6.1) M/uL Hgb 12.1 L (14.0-18.0) g/dL Hct 34.9 L (42-52) % MCV 89.3 (80-100) fL MCH 30.9 (25-34) pg MCHC 34.7 (32-36) g/dL RDW Std Deviation 42.2 (36.4-46.3) fL RDW Coeff of Eddie 13.1 (11.5-14.5) % Plt Count 270 (130-400) K/uL MPV 10.2 (7.4-10.4) fL Immature Gran % (Auto) 1.0 % Neut % (Auto) 83.3 % Lymph % (Auto) 9.2 % [place] % (Auto) 5.1 % Eos % (Auto) 1.2 % Baso % (Auto) 0.2 % Neut # (Auto) 9.21 H (1.4-6.5) K/uL Lymph # (Auto) 1.02 L (1.2-3.4) K/uL [place] # (Auto) 0.56 (0.11-0.59) K/uL Eos # (Auto) 0.13 (0-0.5) K/uL Baso # (Auto) 0.02 (0-0.2) K/uL Immature Gran # (Auto) 0.11 H (0.00-0.02) K/uL Sodium 132 L (136-145) mmol/L Potassium 3.9 (3.5-5.1) mmol/L Chloride 97 L (98-107) mmol/L Carbon Dioxide 25 (21-32) mmol/L Anion Gap 10 (3-11) BUN 16 (6-23) mg/dl Creatinine 0.73 (0.6-1.4) mg/dl Est Cr Clr Drug Dosing 109.7 ml/min Est GFR ( Amer) 116.0 ml/min Est GFR (Non-Af Amer) 100.1 ml/min BUN/Creatinine Ratio 21.9 H (10-20) Glucose 332 H* (70-99(Fasting)) mg/dl POC Glucose 185 H (70-99) mg/dl Calcium 8.7 (8.5-10.1) mg/dl Magnesium 1.5 L (1.7-2.4) mg/dl Total Bilirubin 0.4 (0.2-1.0) mg/dl AST 16 (13-39) U/L ALT 30 (7-52) U/L Alkaline Phosphatase 77 (34-104) U/L Total Protein 6.0 (6.0-8.3) gm/dl Albumin 2.8 L (3.4-5.0) gm/dl Globulin 3.2 (2.5-4.0) gm/dl Albumin/Globulin Ratio 0.9 (0.9-2) 06/19/21 06/19/21 06/19/21 Range/Units 20:06 16:39 11:35 WBC (4.8-10.8) K/uL RBC (4.7-6.1) M/uL Hgb (14.0-18.0) g/dL Hct (42-52) % MCV (80-100) fL MCH (25-34) pg MCHC (32-36) g/dL RDW Std Deviation (36.4-46.3) fL RDW Coeff of Eddie (11.5-14.5) % Plt Count (130-400) K/uL MPV (7.4-10.4) fL Immature Gran % (Auto) % Neut % (Auto) % Lymph % (Auto) % [place] % (Auto) % Eos % (Auto) % Baso % (Auto) % Neut # (Auto) (1.4-6.5) K/uL Lymph # (Auto) (1.2-3.4) K/uL [place] # (Auto) (0.11-0.59) K/uL Eos # (Auto) (0-0.5) K/uL Baso # (Auto) (0-0.2) K/uL Immature Gran # (Auto) (0.00-0.02) K/uL Sodium (136-145) mmol/L Potassium (3.5-5.1) mmol/L Chloride (98-107) mmol/L Carbon Dioxide (21-32) mmol/L Anion Gap (3-11) BUN (6-23) mg/dl Creatinine (0.6-1.4) mg/dl Est Cr Clr Drug Dosing ml/min Est GFR ( Amer) ml/min Est GFR (Non-Af Amer) ml/min BUN/Creatinine Ratio (10-20) Glucose (70-99(Fasting)) mg/dl POC Glucose 98 155 H 136 H (70-99) mg/dl Calcium (8.5-10.1) mg/dl Magnesium (1.7-2.4) mg/dl Total Bilirubin (0.2-1.0) mg/dl AST (13-39) U/L ALT (7-52) U/L Alkaline Phosphatase (34-104) U/L Total Protein (6.0-8.3) gm/dl Albumin (3.4-5.0) gm/dl Globulin (2.5-4.0) gm/dl Albumin/Globulin Ratio (0.9-2) PG Care Time/CCT Total # of Minutes Spent Total Time Spent with Patient: Total time spent is greater than 50% in coordination of care (as documented) at patient's floor/unit and/or counseling patient: Coding Level of Care Code 37762 Subseq Hosp Care Lvl 3 Diagnoses COVID-19 U07.1 Acute respiratory failure with hypoxia J96.01 Pulmonary emboli I26.99 GERD (gastroesophageal reflux disease) K21.9 Diabetes E11.9 CAD (coronary artery disease) I25.10 Hypomagnesemia E83.42 Metabolic acidosis E87.2 Hyponatremia E87.1
--- NOTE | 2021-06-20 13:26 | Pharmacy Report ---
Pharmacy Glycemic Short Note 2 - Date of Service June 20, 2021 - Glycemic Short BSG Results (Last 24 hours): 06/19/21 06/19/21 06/20/21 16:39 20:06 05:58 Glucose 332 H* POC Glucose 155 H 98 06/20/21 06/20/21 07:40 11:26 Glucose POC Glucose 185 H 85 OUTPATIENT ANTIDIABETIC REGIMEN: * Metformin 1000 mg PO BIDM * Jardiance 10 mg PO qAM * Trulicity 1.5 mg SC weekly (Sundays) * HbA1c 7.6% (06/19/21) ASSESSMENT: 06/20 * BSGs much improved yesterday, ranging 98-155 mg/dL * Final dose of dexamethasone 6 mg IV daily given today - NPH will be discontinued after today's dose * Lunch BSG of 85 mg/dL, will loosen Novolog parameters now that steroids are discontinued * Possible discharge home tomorrow 06/19 * BM is a 61 year old male admitted on 06/11/21 with COVID-19 pneumonia * Pertinent PMH includes CAD (hx of [place] in 2008), active PE, GERD * Patient intermittently hyperglycemic during admission, likely related to IV dexamethasone * Pharmacy consulted yesterday evening for BSG > 300 mg/dL * Will add conservative NPH with IV dexamethasone and tighten Novolog parameters PLAN FOR INPATIENT GLYCEMIC CONTROL: * Hold outpatient oral diabetes medications * Basal insulin * NPH 20 units SC daily with IV dexamethasone (~0.25 unit/kg) * D/C after today's dose * Bolus insulin * NovoLog per scale ACHS or Q6hrs while NPO * Goal Range: Low 110 mg/dL - High 140 mg/dL * Correction Factor: 35 mg/dL/unit * Nutritional / Prandial insulin per carb ratio of 1 unit per 12 grams CHO consumed PLAN FOR DISCHARGE: * HbA1c of 7.6% is slightly above goal of less than 7%, but reasonable to discharge with current outpatient regimen * Patient currently on recommended antidiabetic medications (SGLT2 inhibitor + GLP-1 RA) given ASCVD (hx of [place]) * Support Patient Self-Management * Healthy Lifestyle (diet and exercise) * Disease self-management (SMBG) * Prevention of complications (BP, Lipid goals, Immunizations) * Consider outpatient Diabetes Self-Management Education & Support
[2021-06-20] MEDS: PANTOprazole 40 MG TAB PO SCH (20:48)
[2021-06-20] MEDS: lisinopril 10 MG TAB PO SCH (20:48)
[2021-06-21] MEDS: SODIUM CHLOR 7% 4 ML NEB NEB SCH ×3 (08:02→19:57)
[2021-06-21] MEDS: ALBUT/IPRATROP 3MG/0.5MG NEB 3 ML VIAL NEB SCH ×3 (08:02→19:57)
[2021-06-21 08:13] LABS: Creatinine Clr Calc Pharmacy 114.4 ml/min; Est GFR (African American) 118.1 ml/min; Est GFR (Non-African American) 101.9 ml/min; Magnesium 1.9 mg/dl (1.7-2.4); Potassium 4.6 mmol/L (3.5-5.1)
[2021-06-21] MEDS: BARICITINIB 2 MG TAB PO SCH (08:25)
[2021-06-21] MEDS: ASPIRIN 81 MG ECTAB PO SCH (08:26)
[2021-06-21] MEDS: HYDROXYCHLOROQUINE SULFATE 200 MG TAB PO SCH ×2 (08:26→20:12)
[2021-06-21] MEDS: RIVAROXABAN 15 MG TAB PO SCH ×2 (08:26→20:12)
[2021-06-21] MEDS: carvediloL 6.25 MG TAB PO SCH ×2 (08:26→20:12)
[2021-06-21] MEDS: INSULIN ASPART PER UNIT SC SCH ×4 (08:39→20:12)
--- NOTE | 2021-06-21 18:30 | Hospitalist Progress Note ---
Date of Service June 21, 2021 Assessment & Plan (1) COVID-19: Plan: Covid-19 pneumonia Elevated CRP of 18.92 on admission, trended down to 3-4 Patient reports recently having the flu in April, feels like he never quite recovered. He also reports having PNA 7x in the past Has a h/o SLE on HQN D-dimer 29,000 after admission--> CTA Chest shows + bilateral numerous subsegmental upper lobe PEs and extensive PNA Was on Vapotherm for many days, now weaning down and doing much better-weaned down to 2 L nasal cannula now at rest, but was requiring greater than 6 L with exertion on 06/21-failed two-step walk test Is ambulating frequently around the room, doing much better Completed 10-day course of dexamethasone 6mg IV daily Continue baricitinib 4mg daily, day 11 continue flutter valve, incentive spirometer (able to pull > 2000mL consistently) prone as much as possible, lay on left side, encouraged him to do this no need for Lasix -no role for Remdesevir given prolonged course prior to admission - no role for antibiotics as procalcitonin is normal Expect he will likely be discharged in the next 1 to 2 days once he is requiring 6 L or less via nasal cannula with exertion I will repeat his two-step walk test prior to discharge (2) Acute respiratory failure with hypoxia: Plan: 06/16 covid PNA as above Does have multiple bilateral subsegmental PEs but these are not contributing to his hypoxia continue suplemental O2 and wean off as tolerated pulm toilet, continue nebs prn (3) Pulmonary emboli: Plan: as above, multiple bilat subsegmental PEs on CTA CHest they are very small, nothing central, doubt that they are contributing to hypoxemia Xarelto 15mg BID x 3 weeks then 20mg daily starting on 07/03 Recommend 3 months of anticoagulation proBNP and troponin both negative, hemodynamically stable-no need for echocardiogram Checked venous Dopplers--> negative. If had bleeding issues, would be ok to stop anticoagulation (4) GERD (gastroesophageal reflux disease): Plan: Chronic. Well controlled -Continue Protonix 40mg po daily (5) Diabetes: Plan: Blood sugar adequately controlled, he had some hyperglycemia due to steroids-now resolved as steroids are stopped HgbA1C 7.6% -Continue to hold Metformin, Trulicity, and Jardiance but can restart these upon discharge (6) CAD (coronary artery disease): Plan: With a h/o [place] in 2008, a total of 11 stents since that time, most recent in 10/2017 No cardiac issues ie angina or exercise intolerance prior to admission Discussed need for anticoagulation with his Security Vehicle Patrol Officer, Dr. 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 He was needing more than 6 L to keep his pulse ox greater than 88%. He denies any other problems. He is ambulating around the room is much as possible and lying prone for many hours at a time. Telemetry with normal sinus rhythm with rates in 60s to 80s Later in the day, I was notified that a [employer] employee had a needlestick from a used needle on Mr. Brush. The patient is agreeable to HIV testing after I verbally consented him-he did request that his daughter who is a nurse here sign as his surrogate on the consent form as the paper copy could not be taken into his Covid room. Review of Systems Review of Systems: All systems reviewed & are unremarkable except as noted in HPI & below Physical Exam Constitutional: WD/WN, vitals as above Eyes: + anicteric sclerae Neck: trachea midline, no thyromegaly Respiratory: normal respiratory effort; no cough Auscultation: + bronchial breath sounds (upper lung pelayo); no crackles and no wheezes Cardiovascular: RRR, no murmur, no edema Chest (Breasts): Chest: normal inspection of chest Gastrointestinal (Abdomen): normal bowel sounds, soft, nontender, no hepatosplenomegaly Musculoskeletal: Extremities: extremities normal to inspection; no cyanosis and no clubbing Skin: no rashes, warm and dry Neurologic: moves all extremities and awake; no focal motor deficits Psychiatric: A+Ox3, euthymic affect Lymphatic: no lymphedema Results & Data Results & Data ([facility]) Vital Signs (Past 12 Hours) Vital Signs Temp Pulse Pulse Pulse Pulse Pulse Pulse 06/21/21 15:34 36.7 C 06/21/21 12:02 36.5 C 06/21/21 09:46 91 H 06/21/21 08:00 06/21/21 07:40 77 88 88 84 100 H 06/21/21 07:34 36.6 C Pulse Pulse Resp Resp Resp Resp Resp 06/21/21 15:34 89 18 06/21/21 12:02 86 20 06/21/21 09:46 06/21/21 08:00 88 20 06/21/21 07:40 74 18 20 20 20 06/21/21 07:34 76 22 Resp Resp BP Pulse Ox Pulse Ox Pulse Ox Pulse Ox 06/21/21 15:34 100/66 93 06/21/21 12:02 90/61 L 90 06/21/21 09:46 06/21/21 08:00 92 06/21/21 07:40 18 18 92 86 L 87 L 06/21/21 07:34 100/68 90 Pulse Ox Pulse Ox Pulse Ox 06/21/21 15:34 06/21/21 12:02 06/21/21 09:46 06/21/21 08:00 06/21/21 07:40 87 L 87 L 88 L 06/21/21 07:34 Laboratory Results 06/21/21 06/21/21 06/21/21 Range/Units 16:27 11:35 07:23 Sodium (136-145) mmol/L Potassium (3.5-5.1) mmol/L Chloride (98-107) mmol/L Carbon Dioxide (21-32) mmol/L Anion Gap (3-11) BUN (6-23) mg/dl Creatinine (0.6-1.4) mg/dl Est Cr Clr Drug Dosing ml/min Est GFR ( Amer) ml/min Est GFR (Non-Af Amer) ml/min BUN/Creatinine Ratio (10-20) Glucose (70-99(Fasting)) mg/dl POC Glucose 80 160 H 119 H (70-99) mg/dl Calcium (8.5-10.1) mg/dl Magnesium (1.7-2.4) mg/dl 06/21/21 06/20/21 Range/Units 07:11 20:03 Sodium 138 (136-145) mmol/L Potassium 4.6 (3.5-5.1) mmol/L Chloride 102 (98-107) mmol/L Carbon Dioxide 30 (21-32) mmol/L Anion Gap 6 (3-11) BUN 14 (6-23) mg/dl Creatinine 0.70 (0.6-1.4) mg/dl Est Cr Clr Drug Dosing 114.4 ml/min Est GFR ( Amer) 118.1 ml/min Est GFR (Non-Af Amer) 101.9 ml/min BUN/Creatinine Ratio 20.0 (10-20) Glucose 116 H (70-99(Fasting)) mg/dl POC Glucose 234 H (70-99) mg/dl Calcium 9.0 (8.5-10.1) mg/dl Magnesium 1.9 (1.7-2.4) mg/dl PG Care Time/CCT Total # of Minutes Spent Total Time Spent with Patient: Total time spent is greater than 50% in coordination of care (as documented) at patient's floor/unit and/or counseling patient: Coding Level of Care Code 99236 Subseq Hosp Care Lvl 2 Diagnoses COVID-19 U07.1 Acute respiratory failure with hypoxia J96.01 Pulmonary emboli I26.99 GERD (gastroesophageal reflux disease) K21.9 Diabetes E11.9 CAD (coronary artery disease) I25.10 Hypomagnesemia E83.42 Metabolic acidosis E87.2 Hyponatremia E87.1
[2021-06-21] MEDS: lisinopril 10 MG TAB PO SCH (20:12)
[2021-06-21] MEDS: PANTOprazole 40 MG TAB PO SCH (20:12)
[2021-06-21] MEDS: IBUPROFEN 200 MG TAB PO PRN (20:21)
[2021-06-21] MEDS: MELATONIN 3 MG TAB PO PRN (20:21)
[2021-06-22] MEDS ORDERED: LACTATED RINGER'S 250 ML IV ONE (00:10)
[2021-06-22] MEDS ORDERED: LACTATED RINGER'S 500 ML IV ONE (00:37)
[2021-06-22] MEDS ORDERED: LACTATED RINGER'S 1,000 ML IV SCH (00:45)
--- NOTE | 2021-06-22 03:25 | Communication Note ---
Date of Service: June 22, 2021 Noted by RN regarding patient's lower BPs overnight. As the evening progressed, his BPs did remain in the range of ~80s/40s. His HR remained primarily in the 60-80 range. He has not had a new fever. Throughout this time, he was asymptomatic - denying lightheadedness, dizziness, chest pain, shortness of breath. His capillary refill, per nurse, was < 2 seconds. He remained on 3L NC throughout this time. He received two of his antihypertensives earlier in the evening prior to the appearance of these BPs - lisinopril and carvedilol - which I suspect are the root cause of the softer pressures after chart reviewing his case. He appears to have softer pressures at baseline. I did order a total bolus amount of ~750cc and started him on mIVF - however, his IV site soon became compromised and was leaking. Patient wished to discontinue fluids at this time and not get new IV site. He was explained the risks of doing this, including symptoms of lower blood pressure, but still wished to have them off. He is asymptomatic, which is reassuring and his pressures have not lowered further over the last several checks. He is amenable to letting us know about any changes in symptoms - at that time, would plan on re-establishing IV to continue the above therapies and intensifying as needed. May wish to consider holding home antihypertensives (noted that plan may be to go home tomorrow) and adding them back-on slowly. We will continue frequent BP checks. Can consider repeating CBCd/BMP in AM if persistent.
[2021-06-22] MEDS: ALBUT/IPRATROP 3MG/0.5MG NEB 3 ML VIAL NEB SCH ×2 (07:21→19:24)
[2021-06-22] MEDS: SODIUM CHLOR 7% 4 ML NEB NEB SCH ×2 (07:21→19:24)
[2021-06-22] MEDS: HYDROXYCHLOROQUINE SULFATE 200 MG TAB PO SCH ×2 (08:28→20:36)
[2021-06-22] MEDS: RIVAROXABAN 15 MG TAB PO SCH ×2 (08:28→20:37)
[2021-06-22] MEDS: ASPIRIN 81 MG ECTAB PO SCH (08:28)
[2021-06-22] MEDS: BARICITINIB 2 MG TAB PO SCH (08:33)
[2021-06-22] MEDS: INSULIN ASPART PER UNIT SC SCH ×4 (08:45→21:10)
--- NOTE | 2021-06-22 09:17 | Pharmacy Report ---
Pharmacy Glycemic Short Note 2 - Date of Service June 22, 2021 - Glycemic Short BSG Results (Last 24 hours): 06/21/21 06/21/21 06/21/21 11:35 16:27 19:53 POC Glucose 160 H 80 133 H 06/22/21 07:37 POC Glucose 107 H OUTPATIENT ANTIDIABETIC REGIMEN: * Metformin 1000 mg PO BIDM * Jardiance 10 mg PO qAM * Trulicity 1.5 mg SC weekly (Sundays) * HbA1c 7.6% (06/19/21) ASSESSMENT: 06/22 * Blood sugars at goal, dropped to 80mg/dl prior to dinner, will loosen CR to prevent hypoglycemia * Patient received no basal insulin yesterday, fasting 107mg/dl this morning, no basal needed anymore, off steroids (last dose 06/20) 06/20 * BSGs much improved yesterday, ranging 98-155 mg/dL * Final dose of dexamethasone 6 mg IV daily given today - NPH will be discontinued after today's dose * Lunch BSG of 85 mg/dL, will loosen Novolog parameters now that steroids are discontinued * Possible discharge home tomorrow 06/19 * BM is a 61 year old male admitted on 06/11/21 with COVID-19 pneumonia * Pertinent PMH includes CAD (hx of [place] in 2008), active PE, GERD * Patient intermittently hyperglycemic during admission, likely related to IV dexamethasone * Pharmacy consulted yesterday evening for BSG > 300 mg/dL * Will add conservative NPH with IV dexamethasone and tighten Novolog parameters PLAN FOR INPATIENT GLYCEMIC CONTROL: * Hold outpatient oral diabetes medications * Basal insulin * None * Bolus insulin * NovoLog per scale ACHS or Q6hrs while NPO * Goal Range: Low 110 mg/dL - High 140 mg/dL * Correction Factor: 30 mg/dL/unit * Nutritional / Prandial insulin per carb ratio of 1 unit per 12 grams CHO consumed PLAN FOR DISCHARGE: * HbA1c of 7.6% is slightly above goal of less than 7%, but reasonable to discharge with current outpatient regimen * Patient currently on recommended antidiabetic medications (SGLT2 inhibitor + GLP-1 RA) given ASCVD (hx of [place]) * Support Patient Self-Management * Healthy Lifestyle (diet and exercise) * Disease self-management (SMBG) * Prevention of complications (BP, Lipid goals, Immunizations) * Consider outpatient Diabetes Self-Management Education & Support
[2021-06-22] MEDS: carvediloL 6.25 MG TAB PO SCH ×2 (10:17→20:27)
[2021-06-22] MEDS: DOCUSATE SODIUM/SENNA 50/8.6MG TAB PO SCH (12:16)
[2021-06-22] MEDS: POLYETHYLENE (MIRALAX) 17 GM PACK PO SCH (12:23)
[2021-06-22] MEDS ORDERED: FUROSEMIDE INJ 20 MG/2 ML VIAL IV ONE (16:01)
--- NOTE | 2021-06-22 16:09 | Hospitalist Progress Note ---
Date of Service June 22, 2021 Assessment & Plan (1) COVID-19: Plan: Covid-19 pneumonia Elevated CRP of 18.92 on admission, trended down to 3-4 Patient reports recently having the flu in April, feels like he never quite recovered. 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 POx--> trial of forehead probe and will ambulate with nurse with POx today Completed 10-day course of dexamethasone 6mg IV daily Continue baricitinib 4mg daily, day 12 continue flutter valve, incentive spirometer (able to pull > 2000mL consistently) prone as much as possible, lay on left side, encouraged him to do this trial of lasix today at 20mg IV x 1 -no role for Remdesevir given prolonged course prior to admission - no role for antibiotics as procalcitonin is normal Expect he will likely be discharged in the next 1 to 2 days once he is requiring 6 L or less via nasal cannula with exertion I will repeat his two-step walk test prior to discharge (2) Acute respiratory failure with hypoxia: Plan: 06/16 covid PNA as above Does have multiple bilateral subsegmental PEs but these are not contributing to his hypoxia continue suplemental O2 and wean off as tolerated pulm toilet, continue nebs prn (3) Pulmonary emboli: Plan: as above, multiple bilat subsegmental PEs on CTA CHest they are very small, nothing central, doubt that they are contributing to hypoxemia Xarelto 15mg BID x 3 weeks then 20mg daily starting on 07/03 Recommend 3 months of anticoagulation proBNP and troponin both negative, hemodynamically stable-no need for echocardiogram Checked venous Dopplers--> negative. If had bleeding issues, would be ok to stop anticoagulation (4) GERD (gastroesophageal reflux disease): Plan: Chronic. Well controlled -Continue Protonix 40mg po daily (5) Diabetes: Plan: Blood sugar adequately controlled, he had some hyperglycemia due to steroids-now resolved as steroids are stopped HgbA1C 7.6% -Continue to hold Metformin, Trulicity, and Jardiance but can restart these upon discharge (6) CAD (coronary artery disease): Plan: With a h/o [place] in 2008, a total of 11 stents since that time, most recent in 10/2017 No cardiac issues ie angina or exercise intolerance prior to admission Discussed need for anticoagulation with his Hand Stripper, Dr. 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 He is frustrated about his persistently low O2 levels but feels like he can take a deeper breath today and got some mucus out. Feels constipated as well. Tele with NSR Review of Systems Review of Systems: All systems reviewed & are unremarkable except as noted in HPI & below Physical Exam Constitutional: WD/WN, vitals as above Eyes: + anicteric sclerae Neck: trachea midline, no thyromegaly Respiratory: normal respiratory effort; no cough Auscultation: + bronchial breath sounds (upper lung pelayo); no crackles and no wheezes Cardiovascular: RRR, no murmur, no edema Chest (Breasts): Chest: normal inspection of chest Gastrointestinal (Abdomen): normal bowel sounds, soft, nontender, no hepatosplenomegaly Musculoskeletal: Extremities: extremities normal to inspection; no cyanosis and no clubbing Skin: fingers with white blanching and purplish hue fingertips Neurologic: moves all extremities and awake; no focal motor deficits Psychiatric: A+Ox3, euthymic affect Lymphatic: no lymphedema Results & Data Results & Data ([facility]) Vital Signs (Past 12 Hours) Vital Signs Temp Pulse Pulse Resp BP Pulse Ox 06/22/21 15:20 92 H 06/22/21 11:06 36.8 C 99 H 19 89/50 L 87 L 06/22/21 07:42 36.6 C 86 20 100/63 93 06/22/21 07:26 81 20 92 06/22/21 07:17 74 06/22/21 06:13 94/53 L 06/22/21 04:58 36.6 C 73 16 80/53 L 90 Laboratory Results 06/22/21 06/22/21 06/21/21 Range/Units 11:50 07:37 19:53 POC Glucose 116 H 107 H 133 H (70-99) mg/dl 06/21/21 Range/Units 16:27 POC Glucose 80 (70-99) mg/dl PG Care Time/CCT Total # of Minutes Spent Total Time Spent with Patient: Total time spent is greater than 50% in coordination of care (as documented) at patient's floor/unit and/or counseling patient: Coding Level of Care Code 89453 Subseq Hosp Care Lvl 3 Diagnoses COVID-19 U07.1 Acute respiratory failure with hypoxia J96.01 Pulmonary emboli I26.99 GERD (gastroesophageal reflux disease) K21.9 Diabetes E11.9 CAD (coronary artery disease) I25.10 Hypomagnesemia E83.42 Metabolic acidosis E87.2 Hyponatremia E87.1 Hypotension I95.9
[2021-06-22] MEDS ORDERED: SODIUM CHLORIDE 0.9% 1000ML 250 ML IV ONE (19:09)
[2021-06-22] MEDS: PANTOprazole 40 MG TAB PO SCH (20:36)
[2021-06-22] MEDS: MELATONIN 3 MG TAB PO PRN (20:44)
[2021-06-22] MEDS: IBUPROFEN 200 MG TAB PO PRN (20:45)
[2021-06-23] MEDS: ALBUT/IPRATROP 3MG/0.5MG NEB 3 ML VIAL NEB SCH ×2 (07:16→19:50)
[2021-06-23] MEDS: SODIUM CHLOR 7% 4 ML NEB NEB SCH ×2 (07:16→19:50)
--- NOTE | 2021-06-23 07:17 | Pharmacy Report ---
Pharmacy Glycemic Sign Off Nt - Date of Service June 23, 2021 - Assessment & Plan ASSESSMENT: * Pharmacy was consulted by Dr Lorenz on 06/18/21 for glycemic control and to write orders per [facility] inpatient glycemic control protocol. * Major changes made by pharmacy to antidiabetic regimen include: * Addition of NPH while on steroids * Novolog parameter adjustments * Patient has been receiving/requiring 12-13 units of insulin per day for adequate glycemic control * BSGs ranging 80 - 160 mg/dl over past 48 hours * Regimen has only required minor adjustments over the past 48hrs to achieve this level of control * Do not anticipate further changes in patient status that would quickly deteriorate glycemic control (i.e. patient to be NPO for upcoming procedure, steroids tapering, starting tube feedings, etc). Last dose of dexamethasone was 06/20/21. * Please see recommendations for outpatient antidiabetic regimen below. PLAN FOR INPATIENT GLYCEMIC CONTROL: No changes needed to current regimen. * Continue to hold basal insulin * Continue NovoLog per scale ACHS/Q6hrs while NPO * Goal range = 110 - 140 mg/dl * CF = 30 mg/dl/unit * CR = 1 unit for ever 12 g CHO consumed * Pharmacy is signing off of glycemic consult and will no longer be making adjustments to inpatient regimen. Please feel free to re-consult if needed. Thank you. DISCHARGE RECOMMENDATIONS: * HbA1c of 7.6% is slightly above goal of less than 7%, but reasonable to discharge with current outpatient regimen * Patient currently on recommended antidiabetic medications (SGLT2 inhibitor + GLP-1 RA) given ASCVD (hx of [place]) * Support Patient Self-Management * Healthy Lifestyle (diet and exercise) * Disease self-management (SMBG) * Prevention of complications (BP, Lipid goals, Immunizations) * Consider outpatient Diabetes Self-Management Education & Support
[2021-06-23 07:55] LABS: Hematocrit (blood only) 34.8 % (42-52); Hemoglobin 11.6 g/dL (14.0-18.0); Mean Corpuscular Hemoglobin 29.6 pg (25-34); Mean Corpuscular Hgb Conc 33.3 g/dL (32-36); Mean Corpuscular Volume 88.8 fL (80-100); Mean Platelet Volume 9.9 fL (7.4-10.4); Platelet Count 256 K/uL (130-400); RDW Coefficient of Variation 13.3 % (11.5-14.5); RDW Standard Deviation 42.8 fL (36.4-46.3); Red Blood Count 3.92 M/uL (4.7-6.1); White Blood Count 11.49 K/uL (4.8-10.8)
[2021-06-23 08:24] LABS: Basophils # (auto) 0.05 K/uL (0-0.2); Basophils % (auto) 0.4 %; Eosinophils # (auto) 0.15 K/uL (0-0.5); Eosinophils % (auto) 1.3 %; Immature Granulocytes # (auto) 0.08 K/uL (0.00-0.02); Immature Granulocytes % (auto) 0.7 %; Lymphocytes # (auto) 1.17 K/uL (1.2-3.4); Lymphocytes % (auto) 10.2 %; Monocytes # (auto) 0.72 K/uL (0.11-0.59); Monocytes % (auto) 6.3 %; Neutrophils # (auto) 9.32 K/uL (1.4-6.5); Neutrophils % (auto) 81.1 %
[2021-06-23 08:33] LABS: BUN Creatinine Ratio 24.3 (10-20); Calcium 8.8 mg/dl (8.5-10.1); Creatinine Clr Calc Pharmacy 108.2 ml/min; Est GFR (African American) 115.4 ml/min; Est GFR (Non-African American) 99.6 ml/min; Potassium 4.7 mmol/L (3.5-5.1)
[2021-06-23] MEDS: INSULIN ASPART PER UNIT SC SCH ×4 (09:30→20:47)
[2021-06-23] MEDS: DOCUSATE SODIUM/SENNA 50/8.6MG TAB PO SCH (09:30)
[2021-06-23] MEDS: BARICITINIB 2 MG TAB PO SCH (09:30)
[2021-06-23] MEDS: RIVAROXABAN 15 MG TAB PO SCH ×2 (09:30→20:38)
[2021-06-23] MEDS: HYDROXYCHLOROQUINE SULFATE 200 MG TAB PO SCH ×2 (09:30→20:38)
[2021-06-23] MEDS: ASPIRIN 81 MG ECTAB PO SCH (09:31)
[2021-06-23] MEDS: carvediloL 6.25 MG TAB PO SCH ×2 (09:31→20:38)
[2021-06-23] MEDS: POLYETHYLENE (MIRALAX) 17 GM PACK PO SCH (09:32)
[2021-06-23] MEDS ORDERED: SODIUM CHLORIDE 0.65% NA SOLN 45 ML (OCEAN) ONE (14:30)
--- NOTE | 2021-06-23 14:39 | Hospitalist Progress Note ---
Date of Service June 23, 2021 Assessment & Plan (1) COVID-19: Plan: Covid-19 pneumonia Elevated CRP of 18.92 on admission, trended down to 3-4 Patient reports recently having the flu in April, feels like he never quite recovered. He also reports having PNA 7x in the past Has a h/o SLE on HQN D-dimer 29,000 after admission--> CTA Chest shows + bilateral numerous subsegmental upper lobe PEs and extensive PNA Was on Vapotherm for many days, now weaning down and doing much better-weaned down to 2 L nasal cannula now at rest, but was requiring greater than 6 L with exertion on 06/21-failed two-step walk test Is ambulating frequently around the room, doing much better Lasix trial on 06/22 caused hypotension and tachycardia in to the 20s, resolved with small bolus NS 250mL Does have Raynaud's noted on exam, difficult to mixing picker tender POx, but now with forehead monitor -will do another 2 step today to see if can go home Completed 10-day course of dexamethasone 6mg IV daily Continue baricitinib 4mg daily, day 13 continue flutter valve, incentive spirometer (able to pull > 2000mL consistently) prone as much as possible, lay on left side, encouraged him to do this avoid lasix due to hypotensive episode -no role for Remdesevir given prolonged course prior to admission - no role for antibiotics as procalcitonin is normal -add on nasal saline to see if this helps with passage of O2 through nostrils Can only discharge once he is requiring 6 L or less via nasal cannula with exertion I will repeat his two-step walk test prior to discharge (2) Acute respiratory failure with hypoxia: Plan: 06/16 covid PNA as above Does have multiple bilateral subsegmental PEs but these are not contributing to his hypoxia continue suplemental O2 and wean off as tolerated pulm toilet, continue nebs prn (3) Pulmonary emboli: Plan: as above, multiple bilat subsegmental PEs on CTA CHest they are very small, nothing central, doubt that they are contributing to hypoxemia Xarelto 15mg BID x 3 weeks then 20mg daily starting on 07/03 Recommend 3 months of anticoagulation proBNP and troponin both negative, hemodynamically stable-no need for echocardiogram Checked venous Dopplers--> negative. If had bleeding issues, would be ok to stop anticoagulation (4) GERD (gastroesophageal reflux disease): Plan: Chronic. Well controlled -Continue Protonix 40mg po daily (5) Diabetes: Plan: Blood sugar adequately controlled, he had some hyperglycemia due to steroids-now resolved as steroids are stopped HgbA1C 7.6% -Continue to hold Metformin, Trulicity, and Jardiance but can restart these upon discharge (6) CAD (coronary artery disease): Plan: With a h/o [place] in 2008, a total of 11 stents since that time, most recent in 10/2017 No cardiac issues ie angina or exercise intolerance prior to admission Discussed need for anticoagulation with his Radio Station Manager, Dr. Edu Arteaga, at [facility]--> ok to dc Plavix to avoid triple tx -Continue ASA, Carvedilol and Lisinopril on Repatha for cholesterol, administered on 06/13-receives injections every 2 weeks (7) Hypomagnesemia: Plan: Replaced and resolved (8) Metabolic acidosis: Plan: resolved (9) Hyponatremia: Plan: Now improved, no urine Osm or Na+ performed but he drinks excessive amounts of free water > 100 oz daily (3L) even if not feeling thirsty as this was part of his previous weight loss program -Na+ 134 today (10) Hypotension: Plan: BPs 80s systolic, asymptomatic, occurred after restarting ACEi at a lower dose than home dose. Occurred again after IV lasix given as above dcd lisinopril continue Coreg with hold parameters given h/o CAD follow Plan: Ppx - Xarelto Code - Full per discussion with patient Dispo - continue to wean oxygen, go home once down to no more than 6 L nasal cannula with exertion Admission and Anticipated Discharge Date Admission Date: June 11, 2021 Subjective Pt has been ambulating frequently around the room all day. POx drops to 83% on 3L and he is able to stop and take deep breaths and recover after 90 seconds. No CP, no nausea. Moved bowels today. Lasix yesterday caused hypotension and sinus tachycardia. Advised he just not drink so much water and he has cut back on his water today. He does have some nasal congestion, willing to try nasal saline ALso wants ot try another 2 step walk test today, is determined he will do better today. Tele with NSR normal rates Review of Systems Review of Systems: All systems reviewed & are unremarkable except as noted in HPI & below Physical Exam Constitutional: WD/WN, vitals as above Eyes: + anicteric sclerae Neck: trachea midline, no thyromegaly Respiratory: normal respiratory effort; no cough Auscultation: + bronchial breath sounds (upper lung pelayo but improved air movement from previous); no crackles and no wheezes Cardiovascular: RRR, no murmur, no edema Chest (Breasts): Chest: normal inspection of chest Gastrointestinal (Abdomen): normal bowel sounds, soft, nontender, no hepatosplenomegaly Musculoskeletal: Extremities: extremities normal to inspection; no cyanosis and no clubbing Skin: no rashes, warm and dry Neurologic: moves all extremities and awake; no focal motor deficits Psychiatric: A+Ox3, euthymic affect Lymphatic: no lymphedema Results & Data Results & Data ([facility]) Vital Signs (Past 12 Hours) Vital Signs Temp Pulse Pulse Resp BP Pulse Ox 06/23/21 11:45 36.6 C 87 22 101/63 88 L 06/23/21 09:00 70 06/23/21 08:01 36.9 C 102 H 22 98/64 L 06/23/21 07:16 77 20 90 06/23/21 04:21 36.4 C L 72 16 96/59 L 90 Laboratory Results 06/23/21 06/23/21 06/23/21 Range/Units 11:53 07:27 07:27 WBC 11.49 H (4.8-10.8) K/uL RBC 3.92 L (4.7-6.1) M/uL Hgb 11.6 L (14.0-18.0) g/dL Hct 34.8 L (42-52) % MCV 88.8 (80-100) fL MCH 29.6 (25-34) pg MCHC 33.3 (32-36) g/dL RDW Std Deviation 42.8 (36.4-46.3) fL RDW Coeff of Eddie 13.3 (11.5-14.5) % Plt Count 256 (130-400) K/uL MPV 9.9 (7.4-10.4) fL Immature Gran % (Auto) 0.7 % Neut % (Auto) 81.1 % Lymph % (Auto) 10.2 % Sampson % (Auto) 6.3 % Eos % (Auto) 1.3 % Baso % (Auto) 0.4 % Neut # (Auto) 9.32 H (1.4-6.5) K/uL Lymph # (Auto) 1.17 L (1.2-3.4) K/uL Sampson # (Auto) 0.72 H (0.11-0.59) K/uL Eos # (Auto) 0.15 (0-0.5) K/uL Baso # (Auto) 0.05 (0-0.2) K/uL Immature Gran # (Auto) 0.08 H (0.00-0.02) K/uL Sodium 134 L (136-145) mmol/L Potassium 4.7 (3.5-5.1) mmol/L Chloride 100 (98-107) mmol/L Carbon Dioxide 28 (21-32) mmol/L Anion Gap 6 (3-11) BUN 18 (6-23) mg/dl Creatinine 0.74 (0.6-1.4) mg/dl Est Cr Clr Drug Dosing 108.2 ml/min Est GFR ( Amer) 115.4 ml/min Est GFR (Non-Af Amer) 99.6 ml/min BUN/Creatinine Ratio 24.3 H (10-20) Glucose 113 H (70-99(Fasting)) mg/dl POC Glucose 139 H (70-99) mg/dl Calcium 8.8 (8.5-10.1) mg/dl 06/22/21 06/22/21 Range/Units 20:25 16:16 WBC (4.8-10.8) K/uL RBC (4.7-6.1) M/uL Hgb (14.0-18.0) g/dL Hct (42-52) % MCV (80-100) fL MCH (25-34) pg MCHC (32-36) g/dL RDW Std Deviation (36.4-46.3) fL RDW Coeff of Eddie (11.5-14.5) % Plt Count (130-400) K/uL MPV (7.4-10.4) fL Immature Gran % (Auto) % Neut % (Auto) % Lymph % (Auto) % Sampson % (Auto) % Eos % (Auto) % Baso % (Auto) % Neut # (Auto) (1.4-6.5) K/uL Lymph # (Auto) (1.2-3.4) K/uL Sampson # (Auto) (0.11-0.59) K/uL Eos # (Auto) (0-0.5) K/uL Baso # (Auto) (0-0.2) K/uL Immature Gran # (Auto) (0.00-0.02) K/uL Sodium (136-145) mmol/L Potassium (3.5-5.1) mmol/L Chloride (98-107) mmol/L Carbon Dioxide (21-32) mmol/L Anion Gap (3-11) BUN (6-23) mg/dl Creatinine (0.6-1.4) mg/dl Est Cr Clr Drug Dosing ml/min Est GFR ( Amer) ml/min Est GFR (Non-Af Amer) ml/min BUN/Creatinine Ratio (10-20) Glucose (70-99(Fasting)) mg/dl POC Glucose 157 H 125 H (70-99) mg/dl Calcium (8.5-10.1) mg/dl PG Care Time/CCT Total # of Minutes Spent Total Time Spent with Patient: Total time spent is greater than 50% in coordination of care (as documented) at patient's floor/unit and/or counseling patient: Coding Level of Care Code 74629 Subseq Hosp Care Lvl 3 Diagnoses COVID-19 U07.1 Acute respiratory failure with hypoxia J96.01 Pulmonary emboli I26.99 GERD (gastroesophageal reflux disease) K21.9 Diabetes E11.9 CAD (coronary artery disease) I25.10 Hypomagnesemia E83.42 Metabolic acidosis E87.2 Hyponatremia E87.1 Hypotension I95.9
[2021-06-23] MEDS: PANTOprazole 40 MG TAB PO SCH (20:38)
[2021-06-24] MEDS: SODIUM CHLOR 7% 4 ML NEB NEB SCH ×2 (07:13→19:04)
[2021-06-24] MEDS: ALBUT/IPRATROP 3MG/0.5MG NEB 3 ML VIAL NEB SCH ×2 (07:13→19:04)
[2021-06-24] MEDS: BARICITINIB 2 MG TAB PO SCH (08:06)
[2021-06-24] MEDS: HYDROXYCHLOROQUINE SULFATE 200 MG TAB PO SCH ×2 (08:07→20:57)
[2021-06-24] MEDS: ASPIRIN 81 MG ECTAB PO SCH (08:07)
[2021-06-24] MEDS: DOCUSATE SODIUM/SENNA 50/8.6MG TAB PO SCH (08:07)
[2021-06-24] MEDS: POLYETHYLENE (MIRALAX) 17 GM PACK PO SCH (08:07)
[2021-06-24] MEDS: carvediloL 6.25 MG TAB PO SCH ×2 (08:13→20:56)
[2021-06-24] MEDS: INSULIN ASPART PER UNIT SC SCH ×4 (08:39→22:16)
[2021-06-24] MEDS: RIVAROXABAN 15 MG TAB PO SCH ×2 (09:35→20:58)
--- NOTE | 2021-06-24 09:36 | XRay Report ---
XR chest 1V portable HISTORY: f/u COVID PNA,hypoxia COMPARISON: Chest 06/17/2021. FINDINGS: No pneumothorax. No pleural effusions. There are low lung volumes. The cardiac silhouette r emains mildly enlarged. Multifocal bilateral airspace opacities persist. IMPRESSION: No significant change in the multifocal bilateral airspace opacities consistent with a viral pneumoni a. ACT 112: Negative or not required by law. Electronically signed by: Jonathan Lee M.D. 06/24/2021 9:34 AM
[2021-06-24 11:43] LABS: Basophils # (auto) 0.01 K/uL (0-0.2); Basophils % (auto) 0.1 %; Eosinophils # (auto) 0.05 K/uL (0-0.5); Eosinophils % (auto) 0.3 %; Hematocrit (blood only) 35.4 % (42-52); Immature Granulocytes # (auto) 0.05 K/uL (0.00-0.02); Immature Granulocytes % (auto) 0.3 %; Lymphocytes # (auto) 1.04 K/uL (1.2-3.4); Lymphocytes % (auto) 6.7 %; Mean Corpuscular Hemoglobin 30.2 pg (25-34); Mean Corpuscular Hgb Conc 33.9 g/dL (32-36); Mean Corpuscular Volume 88.9 fL (80-100); Mean Platelet Volume 9.8 fL (7.4-10.4); Monocytes # (auto) 0.76 K/uL (0.11-0.59); Monocytes % (auto) 4.9 %; Neutrophils # (auto) 13.68 K/uL (1.4-6.5); Neutrophils % (auto) 87.7 %; Platelet Count 330 K/uL (130-400); RDW Coefficient of Variation 13.2 % (11.5-14.5); Red Blood Count 3.98 M/uL (4.7-6.1); White Blood Count 15.59 K/uL (4.8-10.8)
[2021-06-24 12:05] LABS: Albumin Globulin Ratio 0.8 (0.9-2); BUN Creatinine Ratio 20.8 (10-20); Bilirubin,Total 0.9 mg/dl (0.2-1.0); C Reactive Protein 14.35 mg/dl (0-0.5); Calcium 8.8 mg/dl (8.5-10.1); Creatinine Clr Calc Pharmacy 111.2 ml/min; Est GFR (African American) 116.7 ml/min; Est GFR (Non-African American) 100.7 ml/min; Globulin 3.8 gm/dl (2.5-4.0); Magnesium 1.7 mg/dl (1.7-2.4); Phosphorus 3.2 mg/dl (2.5-4.9); Potassium 4.5 mmol/L (3.5-5.1); Total Protein 6.8 gm/dl (6.0-8.3)
--- NOTE | 2021-06-24 19:29 | Hospitalist Progress Note ---
Date of Service June 24, 2021 Assessment & Plan (1) COVID-19: Plan: Covid-19 pneumonia Elevated CRP of 18.92 on admission, trended down to 3-4, but now back up to 14 after being off of steroids for the last 3 days WBC count up to 15 from 11 yesterday, did have some chills but no fever Patient reports recently having the flu in April, feels like he never quite recovered. He also reports having PNA 7x in the past Has a h/o SLE on HQN D-dimer 29,000 after admission--> CTA Chest shows + bilateral numerous subsegmental upper lobe PEs and extensive PNA Was on Vapotherm for many days, since then has weaned down and is doing much bet ter, however now requiring 4 L nasal cannula at rest and fails two-step walk test for the last several days in a row-cannot maintain pulse ox greater than 88% for more than 2 minutes on 6 L nasal cannula Is ambulating frequently around the room Lasix trial on 06/22 caused hypotension and tachycardia in to the 20s, resolved with small bolus NS 250mL Does have Raynaud's noted on exam, difficult to continuous pickling line pickler POx, but now with forehead monitor Had mucous plugging incident causing worsening hypoxia in the morning of 06/24 Chest x-ray on 06/24 shows stable multifocal opacities compared to 1 week prior Completed 10-day course of dexamethasone 6mg IV daily on 06/21, however will restart dexamethasone 6 mg IV once daily today given rising CRP Has now completed a 14-day course of baricitinib 4mg daily continue flutter valve, incentive spirometer prone as much as possible avoid lasix due to hypotensive episode -no role for Remdesevir given prolonged course prior to admission - no role for antibiotics as procalcitonin is normal, however with rising WBC count and CRP-check procalcitonin in the morning -Continue on nasal saline to see if this helps with passage of O2 through nostrils -Follow CBC, CMP, CRP, procalcitonin in the morning Can only discharge once he is requiring 6 L or less via nasal cannula with exertion I will repeat his two-step walk test prior to discharge (2) Acute respiratory failure with hypoxia: Plan: 06/16 covid PNA as above Does have multiple bilateral subsegmental PEs but these are not contributing to his hypoxia With slight increased oxygen requirement at rest on 06/24, likely secondary to mucous plugging-no evidence of DVT clinically and I do not suspect new PE continue supplemental O2 and wean off as tolerated pulm toilet, continue nebs prn, steroids (3) Pulmonary emboli: Plan: as above, multiple bilat subsegmental PEs on CTA CHest they are very small, nothing central, doubt that they are contributing to hypoxemia Xarelto 15mg BID x 3 weeks then 20mg daily starting on 07/03 Recommend 3 months of anticoagulation proBNP and troponin both negative, hemodynamically stable-no need for echocardiogram Checked venous Dopplers--> negative. If had bleeding issues, would be ok to stop anticoagulation (4) GERD (gastroesophageal reflux disease): Plan: Chronic. Well controlled -Continue Protonix 40mg po daily (5) Diabetes: Plan: Blood sugar adequately controlled, he had some hyperglycemia due to steroids-now resolved as steroids are stopped Restarting steroids on 06/24 so we will watch for hyperglycemia to recur HgbA1C 7.6% -Continue to hold Metformin, Trulicity, and Jardiance but can restart these upon discharge -Continue NovoLog supplemental insulin for now, but may need to add NPH again as adding back on dexamethasone (6) CAD (coronary artery disease): Plan: With a h/o [place] in 2008, a total of 11 stents since that time, most recent in 10/2017 No cardiac issues ie angina or exercise intolerance prior to admission Discussed need for anticoagulation with his Spray Crew, Dr. Edu Arteaga, at [facility]--> ok to dc Plavix to avoid triple tx -Continue ASA, Carvedilol and Lisinopril on Repatha for cholesterol, administered on 06/13-receives injections every 2 weeks (7) Hypomagnesemia: Plan: Replaced and resolved (8) Metabolic acidosis: Plan: resolved (9) Hyponatremia: Plan: Now improved, no urine Osm or Na+ performed but he drinks excessive amounts of free water > 100 oz daily (3L) even if not feeling thirsty as this was part of his previous weight loss program Sodium dropped back down again slightly today to 131 He is trying to drink less free water but did have 2.2 L today Follow BMP in the morning (10) Hypotension: Plan: BPs 80s systolic, asymptomatic, occurred after restarting ACEi at a lower dose than home dose. Occurred again after IV lasix given as above dcd lisinopril continue Coreg with hold parameters given h/o CAD follow Plan: Ppx - Xarelto Code - Full per discussion with patient Dispo - continue to wean oxygen, go home once down to no more than 6 L nasal cannula with exertion Admission and Anticipated Discharge Date Admission Date: June 11, 2021 Subjective Patient had an episode of likely mucous plugging this morning and pulse ox was around 85% until he did his flutter valve with respiratory therapy and was able to cough out a big plug of sputum. Pulse ox then did recover to 94% on 4 L. He continues to ambulate around the room as much as he can and stops when he feels short of breath. He denies chest pains. Remains afebrile but CRP and WBC count climbed this morning. He is very frustrated that he is still here. Did another two-step walk test with respiratory therapy and did the best he has all week but still was unable to maintain pulse ox greater than 88% for more than 2 minutes on 6 L nasal cannula. Telemetry with normal sinus rhythm with rates in the 80s to 90s. Review of Systems Review of Systems: All systems reviewed & are unremarkable except as noted in HPI & below Physical Exam Constitutional: WD/WN, vitals as above Eyes: + anicteric sclerae Neck: trachea midline, no thyromegaly Respiratory: normal respiratory effort; no cough Auscultation: + crackles (At the left base) and + bronchial breath sounds (upper lung pelayo but improved air movement from previous); no wheezes Cardiovascular: RRR, no murmur, no edema Chest (Breasts): Chest: normal inspection of chest Gastrointestinal (Abdomen): normal bowel sounds, soft, nontender, no hepatosplenomegaly Musculoskeletal: Extremities: extremities normal to inspection; no cyanosis and no clubbing Skin: no rashes, warm and dry Does have somewhat mottled fingers Neurologic: moves all extremities and awake; no focal motor deficits Psychiatric: A+Ox3, euthymic affect Lymphatic: no lymphedema Results & Data Results & Data ([facility]) Vital Signs (Past 12 Hours) Vital Signs Temp Pulse Pulse Pulse Resp BP Pulse Ox 06/24/21 19:05 87 22 93 06/24/21 19:01 87 20 93 06/24/21 16:35 36.6 C 85 20 105/70 95 06/24/21 15:24 80 06/24/21 11:39 36.7 C 96 H 24 95/65 L 93 06/24/21 09:41 94 H 94 06/24/21 08:13 115 H 96/61 L 06/24/21 08:00 92 H 06/24/21 07:43 36.7 C 101 H 22 94/62 L 89 L Laboratory Results 06/24/21 06/24/21 06/24/21 Range/Units 16:30 11:35 11:29 WBC (4.8-10.8) K/uL RBC (4.7-6.1) M/uL Hgb (14.0-18.0) g/dL Hct (42-52) % MCV (80-100) fL MCH (25-34) pg MCHC (32-36) g/dL RDW Std Deviation (36.4-46.3) fL RDW Coeff of Eddie (11.5-14.5) % Plt Count (130-400) K/uL MPV (7.4-10.4) fL Immature Gran % (Auto) % Neut % (Auto) % Lymph % (Auto) % Logan % (Auto) % Eos % (Auto) % Baso % (Auto) % Neut # (Auto) (1.4-6.5) K/uL Lymph # (Auto) (1.2-3.4) K/uL Logan # (Auto) (0.11-0.59) K/uL Eos # (Auto) (0-0.5) K/uL Baso # (Auto) (0-0.2) K/uL Immature Gran # (Auto) (0.00-0.02) K/uL Sodium 131 L (136-145) mmol/L Potassium 4.5 (3.5-5.1) mmol/L Chloride 97 L (98-107) mmol/L Carbon Dioxide 27 (21-32) mmol/L Anion Gap 7 (3-11) BUN 15 (6-23) mg/dl Creatinine 0.72 (0.6-1.4) mg/dl Est Cr Clr Drug Dosing 111.2 ml/min Est GFR ( Amer) 116.7 ml/min Est GFR (Non-Af Amer) 100.7 ml/min BUN/Creatinine Ratio 20.8 H (10-20) Glucose 132 H (70-99(Fasting)) mg/dl POC Glucose 108 H 132 H (70-99) mg/dl Calcium 8.8 (8.5-10.1) mg/dl Phosphorus 3.2 (2.5-4.9) mg/dl Magnesium 1.7 (1.7-2.4) mg/dl Total Bilirubin 0.9 (0.2-1.0) mg/dl AST 18 (13-39) U/L ALT 21 (7-52) U/L Alkaline Phosphatase 105 H (34-104) U/L C-Reactive Protein 14.35 H (0-0.5) mg/dl Total Protein 6.8 (6.0-8.3) gm/dl Albumin 3.0 L (3.4-5.0) gm/dl Globulin 3.8 (2.5-4.0) gm/dl Albumin/Globulin Ratio 0.8 L (0.9-2) 06/24/21 06/24/21 06/23/21 Range/Units 11:29 07:41 20:32 WBC 15.59 H (4.8-10.8) K/uL RBC 3.98 L (4.7-6.1) M/uL Hgb 12.0 L (14.0-18.0) g/dL Hct 35.4 L (42-52) % MCV 88.9 (80-100) fL MCH 30.2 (25-34) pg MCHC 33.9 (32-36) g/dL RDW Std Deviation 43.0 (36.4-46.3) fL RDW Coeff of Eddie 13.2 (11.5-14.5) % Plt Count 330 (130-400) K/uL MPV 9.8 (7.4-10.4) fL Immature Gran % (Auto) 0.3 % Neut % (Auto) 87.7 % Lymph % (Auto) 6.7 % Logan % (Auto) 4.9 % Eos % (Auto) 0.3 % Baso % (Auto) 0.1 % Neut # (Auto) 13.68 H (1.4-6.5) K/uL Lymph # (Auto) 1.04 L (1.2-3.4) K/uL Logan # (Auto) 0.76 H (0.11-0.59) K/uL Eos # (Auto) 0.05 (0-0.5) K/uL Baso # (Auto) 0.01 (0-0.2) K/uL Immature Gran # (Auto) 0.05 H (0.00-0.02) K/uL Sodium (136-145) mmol/L Potassium (3.5-5.1) mmol/L Chloride (98-107) mmol/L Carbon Dioxide (21-32) mmol/L Anion Gap (3-11) BUN (6-23) mg/dl Creatinine (0.6-1.4) mg/dl Est Cr Clr Drug Dosing ml/min Est GFR ( Amer) ml/min Est GFR (Non-Af Amer) ml/min BUN/Creatinine Ratio (10-20) Glucose (70-99(Fasting)) mg/dl POC Glucose 122 H 169 H (70-99) mg/dl Calcium (8.5-10.1) mg/dl Phosphorus (2.5-4.9) mg/dl Magnesium (1.7-2.4) mg/dl Total Bilirubin (0.2-1.0) mg/dl AST (13-39) U/L ALT (7-52) U/L Alkaline Phosphatase (34-104) U/L C-Reactive Protein (0-0.5) mg/dl Total Protein (6.0-8.3) gm/dl Albumin (3.4-5.0) gm/dl Globulin (2.5-4.0) gm/dl Albumin/Globulin Ratio (0.9-2) PG Care Time/CCT Total # of Minutes Spent Total Time Spent with Patient: Total time spent is greater than 50% in coordination of care (as documented) at patient's floor/unit and/or counseling patient: Coding Level of Care Code 69615 Subseq Hosp Care Lvl 3 Diagnoses COVID-19 U07.1 Acute respiratory failure with hypoxia J96.01 Pulmonary emboli I26.99 GERD (gastroesophageal reflux disease) K21.9 Diabetes E11.9 CAD (coronary artery disease) I25.10 Hypomagnesemia E83.42 Metabolic acidosis E87.2 Hyponatremia E87.1 Hypotension I95.9
[2021-06-24] MEDS: dexAMETHasone 6 MG in SYRINGE 0 ML IV SCH (20:55)
[2021-06-24] MEDS: PANTOprazole 40 MG TAB PO SCH (20:57)
[2021-06-24] MEDS: IBUPROFEN 200 MG TAB PO PRN (21:14)
[2021-06-24] MEDS: MELATONIN 3 MG TAB PO PRN (21:15)
[2021-06-25] MEDS: SODIUM CHLOR 7% 4 ML NEB NEB SCH ×2 (06:56→19:30)
[2021-06-25] MEDS: ALBUT/IPRATROP 3MG/0.5MG NEB 3 ML VIAL NEB SCH ×2 (06:56→19:29)
[2021-06-25 07:55] LABS: Basophils # (auto) 0.01 K/uL (0-0.2); Basophils % (auto) 0.2 %; Eosinophils # (auto) 0.01 K/uL (0-0.5); Eosinophils % (auto) 0.2 %; Hemoglobin 11.1 g/dL (14.0-18.0); Immature Granulocytes # (auto) 0.02 K/uL (0.00-0.02); Immature Granulocytes % (auto) 0.5 %; Lymphocytes # (auto) 0.45 K/uL (1.2-3.4); Lymphocytes % (auto) 10.5 %; Mean Corpuscular Hemoglobin 29.4 pg (25-34); Mean Corpuscular Hgb Conc 33.6 g/dL (32-36); Mean Corpuscular Volume 87.3 fL (80-100); Mean Platelet Volume 9.9 fL (7.4-10.4); Monocytes # (auto) 0.21 K/uL (0.11-0.59); Monocytes % (auto) 4.9 %; Neutrophils # (auto) 3.59 K/uL (1.4-6.5); Neutrophils % (auto) 83.7 %; Nucleated RBC # (auto) 0.03 K/uL (0-0); Nucleated RBC % (auto) 0.7 %; Platelet Count 245 K/uL (130-400); RDW Coefficient of Variation 13.1 % (11.5-14.5); RDW Standard Deviation 41.9 fL (36.4-46.3); Red Blood Count 3.78 M/uL (4.7-6.1); White Blood Count 4.29 K/uL (4.8-10.8)
[2021-06-25 08:26] LABS: Albumin Globulin Ratio 0.8 (0.9-2); Albumin Level 2.8 gm/dl (3.4-5.0); Bilirubin,Total 0.7 mg/dl (0.2-1.0); Calcium 8.8 mg/dl (8.5-10.1); Creatinine Clr Calc Pharmacy 106.8 ml/min; Est GFR (African American) 114.8 ml/min; Globulin 3.4 gm/dl (2.5-4.0); Magnesium 1.8 mg/dl (1.7-2.4); Potassium 4.5 mmol/L (3.5-5.1); Total Protein 6.2 gm/dl (6.0-8.3)
[2021-06-25] MEDS ORDERED: MAGNESIUM SULFATE / D5W 1 GM/100 ML BAG IV ONE (09:00)
[2021-06-25] MEDS: dexAMETHasone 6 MG in SYRINGE 0 ML IV SCH (09:04)
[2021-06-25] MEDS: carvediloL 6.25 MG TAB PO SCH ×2 (09:05→20:24)
[2021-06-25] MEDS: HYDROXYCHLOROQUINE SULFATE 200 MG TAB PO SCH ×2 (09:06→20:29)
[2021-06-25] MEDS: ASPIRIN 81 MG ECTAB PO SCH (09:07)
[2021-06-25] MEDS: DOCUSATE SODIUM/SENNA 50/8.6MG TAB PO SCH (10:02)
[2021-06-25] MEDS: POLYETHYLENE (MIRALAX) 17 GM PACK PO SCH (10:02)
[2021-06-25] MEDS: RIVAROXABAN 15 MG TAB PO SCH ×2 (10:05→20:25)
[2021-06-25] MEDS: INSULIN ASPART PER UNIT SC SCH ×4 (10:13→20:41)
--- NOTE | 2021-06-25 11:53 | Hospitalist Progress Note ---
Date of Service June 25, 2021 Assessment & Plan (1) COVID-19: Plan: Covid-19 pneumonia Elevated CRP of 18.92 on admission, trended down to 3-4, but then back up to 14 after being off of steroids for 3 days WBC count up to 15 from 11 despite bein michaela abx, did have some chills but no fever. WBC count now down spontaneously to 4 which is odd Patient reports recently having the flu in April, feels like he never quite recovered. He also reports having PNA 7x in the past Has a h/o SLE on HQN D-dimer 29,000 after admission--> CTA Chest shows + bilateral numerous subsegmental upper lobe PEs and extensive PNA Was on Vapotherm for many days, since then was weaned down to 2LNC and was doing much better, however now requiring 6 L nasal cannula at rest and fails two-step walk test for the last several days in a row-cannot maintain pulse ox greater than 88% for more than 2 minutes on 6 L nasal cannula Is ambulating frequently around the room Lasix trial on 06/22 caused hypotension and tachycardia in to the 20s, resolved with small bolus NS 250mL Does have Raynaud's noted on exam, 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, but now with forehead monitor Had mucous plugging incident causing worsening hypoxia in the morning of 06/24 Chest x-ray on 06/24 shows stable multifocal opacities compared to 1 week prior and PULM review thinks developing fibrosis and traction bronchiectasis Completed 10-day course of dexamethasone 6mg IV daily on 06/21, however given worsening CRP,oxygenation requirement--> restarted dexamethasone 6 mg IV once daily on 06/24 Completed a 14-day course of baricitinib 4mg daily continue flutter valve, incentive spirometer prone as much as possible avoid lasix due to hypotensive episode -no role for Remdesevir given prolonged course prior to admission - no antibiotics ever given as procalcitonin is normal, however with rising WBC count and CRP and failure to improve, is immune suppressed--> start Cefepime and doxy on 06/25 x 5 day course -Continue on nasal saline to see if this helps with passage of O2 through nostrils -add Mucinex 1200mg po bid -Follow CBC, CMP, CRP in the morning Can only discharge once he is requiring 6 L or less via nasal cannula with exertion Will repeat his two-step walk test prior to discharge (2) Acute respiratory failure with hypoxia: Plan: 06/16 covid PNA as above Does have multiple bilateral subsegmental PEs but these are not contributing to his hypoxia With slight increased oxygen requirement at rest on 06/24, likely secondary to mucous plugging-no evidence of DVT clinically and I do not suspect new PE continue supplemental O2 and wean off as tolerated pulm toilet, continue nebs prn, steroids, starting abx (3) Pulmonary emboli: Plan: as above, multiple bilat subsegmental PEs on CTA CHest they are very small, nothing central, doubt that they are contributing to hypoxemia Xarelto 15mg BID x 3 weeks then 20mg daily starting on 07/03 Recommend 3 months of anticoagulation proBNP and troponin both negative, hemodynamically stable-no need for echocardiogram Checked venous Dopplers--> negative. If had bleeding issues, would be ok to stop anticoagulation (4) GERD (gastroesophageal reflux disease): Plan: Chronic. Well controlled -Continue Protonix 40mg po daily (5) Diabetes: Plan: Blood sugar now with hyperglycemia due to steroids being restarted HgbA1C 7.6% -Continue to hold Metformin, Trulicity, and Jardiance but can restart these upon discharge -Continue NovoLog supplemental insulin - add NPH again as adding back on dexamethasone-start 8 units qAM and titrate up as needed (6) CAD (coronary artery disease): Plan: With a h/o [place] in 2008, a total of 11 stents since that time, most recent in 10/2017 No cardiac issues ie angina or exercise intolerance prior to admission Discussed need for anticoagulation with his Associate Professor, Dr. Edu Arteaga, at [facility]--> ok to dc Plavix to avoid triple tx -Continue ASA, Carvedilol and Lisinopril on Repatha for cholesterol, administered on 06/13-receives injections every 2 weeks (7) Hypomagnesemia: Plan: mildly low today, replace with 1 gram IV mag follow level (8) Metabolic acidosis: Plan: resolved (9) Hyponatremia: Plan: Was improved, now worsening again drinks excessive amounts of free water > 100 oz daily (3L) even if not feeling thirsty as this was part of his previous weight loss program Sodium dropped back down again slightly today to 130 He is trying to drink less free water but still does drink quite a bit -check Ur Na and Ur Osm Follow BMP in the morning (10) Hypotension: Plan: BPs 80s systolic, asymptomatic, occurred after restarting ACEi at a lower dose than home dose. Occurred again after IV lasix given as above dcd lisinopril continue Coreg with hold parameters given h/o CAD follow Plan: Ppx - Xarelto Code - Full per discussion with patient Dispo - continue to wean oxygen, go home once down to no more than 6 L nasal cannula with exertion, expect he will be here at least another week Admission and Anticipated Discharge Date Admission Date: June 11, 2021 Subjective Had a "rough night." Reports feeling more SOB with getting up and around. Now feel sbetter on 6LNC. Still feels like can't quite get a deep breath. Bringing up some sputum. COntinues to prone and do flutter, IS. No more chills, no fevers Reviewed his xrays with PULM-suspects developing fibrosis, traction bronchiectasis. Tele with NSR, normal rates Review of Systems Review of Systems: All systems reviewed & are unremarkable except as noted in HPI & below Physical Exam Constitutional: WD/WN, vitals as above Eyes: + anicteric sclerae Neck: trachea midline, no thyromegaly Respiratory: normal respiratory effort; no cough Auscultation: + crackles (At the left base) and + bronchial breath sounds (upper lung pelayo but improved air movement from previous); no wheezes Cardiovascular: RRR, no murmur, no edema Chest (Breasts): Chest: normal inspection of chest Gastrointestinal (Abdomen): normal bowel sounds, soft, nontender, no hepato splenomegaly Musculoskeletal: Extremities: extremities normal to inspection; no cyanosis and no clubbing Skin: no rashes, warm and dry Neurologic: moves all extremities and awake; no focal motor deficits Psychiatric: A+Ox3, euthymic affect Lymphatic: no lymphedema Results & Data Results & Data ([facility]) Vital Signs (Past 12 Hours) Vital Signs Temp Pulse Pulse Pulse Resp BP Pulse Ox 06/25/21 08:00 36.5 C 84 19 102/65 93 06/25/21 06:58 70 20 96 06/25/21 03:35 36.4 C L 77 20 104/66 95 06/25/21 00:00 77 Laboratory Results 06/25/21 06/25/21 06/25/21 Range/Units 11:35 07:29 07:29 WBC (4.8-10.8) K/uL RBC (4.7-6.1) M/uL Hgb (14.0-18.0) g/dL Hct (42-52) % MCV (80-100) fL MCH (25-34) pg MCHC (32-36) g/dL RDW Std Deviation (36.4-46.3) fL RDW Coeff of Eddie (11.5-14.5) % Plt Count (130-400) K/uL MPV (7.4-10.4) fL Immature Gran % (Auto) % Neut % (Auto) % Lymph % (Auto) % [place] % (Auto) % Eos % (Auto) % Baso % (Auto) % Neut # (Auto) (1.4-6.5) K/uL Lymph # (Auto) (1.2-3.4) K/uL [place] # (Auto) (0.11-0.59) K/uL Eos # (Auto) (0-0.5) K/uL Baso # (Auto) (0-0.2) K/uL Immature Gran # (Auto) (0.00-0.02) K/uL Absolute Nucleated RBC (0-0) K/uL Nucleated RBC % (auto) % Sodium 130 L (136-145) mmol/L Potassium 4.5 (3.5-5.1) mmol/L Chloride 98 (98-107) mmol/L Carbon Dioxide 23 (21-32) mmol/L Anion Gap 9 (3-11) BUN 21 (6-23) mg/dl Creatinine 0.75 (0.6-1.4) mg/dl Est Cr Clr Drug Dosing 106.8 ml/min Est GFR ( Amer) 114.8 ml/min Est GFR (Non-Af Amer) 99.0 ml/min BUN/Creatinine Ratio 28.0 H (10-20) Glucose 188 H (70-99(Fasting)) mg/dl POC Glucose 201 H (70-99) mg/dl Calcium 8.8 (8.5-10.1) mg/dl Phosphorus (2.5-4.9) mg/dl Magnesium 1.8 (1.7-2.4) mg/dl Total Bilirubin 0.7 (0.2-1.0) mg/dl AST 16 (13-39) U/L ALT 18 (7-52) U/L Alkaline Phosphatase 94 (34-104) U/L C-Reactive Protein 12.00 H (0-0.5) mg/dl Total Protein 6.2 (6.0-8.3) gm/dl Albumin 2.8 L (3.4-5.0) gm/dl Globulin 3.4 (2.5-4.0) gm/dl Albumin/Globulin Ratio 0.8 L (0.9-2) Procalcitonin 0.15 (0-0.5) ng/ml 06/25/21 06/25/21 06/24/21 Range/Units 07:29 07:24 20:14 WBC 4.29 L D (4.8-10.8) K/uL RBC 3.78 L (4.7-6.1) M/uL Hgb 11.1 L (14.0-18.0) g/dL Hct 33.0 L (42-52) % MCV 87.3 (80-100) fL MCH 29.4 (25-34) pg MCHC 33.6 (32-36) g/dL RDW Std Deviation 41.9 (36.4-46.3) fL RDW Coeff of Eddie 13.1 (11.5-14.5) % Plt Count 245 (130-400) K/uL MPV 9.9 (7.4-10.4) fL Immature Gran % (Auto) 0.5 % Neut % (Auto) 83.7 % Lymph % (Auto) 10.5 % [place] % (Auto) 4.9 % Eos % (Auto) 0.2 % Baso % (Auto) 0.2 % Neut # (Auto) 3.59 (1.4-6.5) K/uL Lymph # (Auto) 0.45 L (1.2-3.4) K/uL [place] # (Auto) 0.21 (0.11-0.59) K/uL Eos # (Auto) 0.01 (0-0.5) K/uL Baso # (Auto) 0.01 (0-0.2) K/uL Immature Gran # (Auto) 0.02 (0.00-0.02) K/uL Absolute Nucleated RBC 0.03 H (0-0) K/uL Nucleated RBC % (auto) 0.7 % Sodium (136-145) mmol/L Potassium (3.5-5.1) mmol/L Chloride (98-107) mmol/L Carbon Dioxide (21-32) mmol/L Anion Gap (3-11) BUN (6-23) mg/dl Creatinine (0.6-1.4) mg/dl Est Cr Clr Drug Dosing ml/min Est GFR ( Amer) ml/min Est GFR (Non-Af Amer) ml/min BUN/Creatinine Ratio (10-20) Glucose (70-99(Fasting)) mg/dl POC Glucose 186 H 127 H (70-99) mg/dl Calcium (8.5-10.1) mg/dl Phosphorus (2.5-4.9) mg/dl Magnesium (1.7-2.4) mg/dl Total Bilirubin (0.2-1.0) mg/dl AST (13-39) U/L ALT (7-52) U/L Alkaline Phosphatase (34-104) U/L C-Reactive Protein (0-0.5) mg/dl Total Protein (6.0-8.3) gm/dl Albumin (3.4-5.0) gm/dl Globulin (2.5-4.0) gm/dl Albumin/Globulin Ratio (0.9-2) Procalcitonin (0-0.5) ng/ml 06/24/21 06/24/21 Range/Units 16:30 11:29 WBC (4.8-10.8) K/uL RBC (4.7-6.1) M/uL Hgb (14.0-18.0) g/dL Hct (42-52) % MCV (80-100) fL MCH (25-34) pg MCHC (32-36) g/dL RDW Std Deviation (36.4-46.3) fL RDW Coeff of Eddie (11.5-14.5) % Plt Count (130-400) K/uL MPV (7.4-10.4) fL Immature Gran % (Auto) % Neut % (Auto) % Lymph % (Auto) % [place] % (Auto) % Eos % (Auto) % Baso % (Auto) % Neut # (Auto) (1.4-6.5) K/uL Lymph # (Auto) (1.2-3.4) K/uL [place] # (Auto) (0.11-0.59) K/uL Eos # (Auto) (0-0.5) K/uL Baso # (Auto) (0-0.2) K/uL Immature Gran # (Auto) (0.00-0.02) K/uL Absolute Nucleated RBC (0-0) K/uL Nucleated RBC % (auto) % Sodium 131 L (136-145) mmol/L Potassium 4.5 (3.5-5.1) mmol/L Chloride 97 L (98-107) mmol/L Carbon Dioxide 27 (21-32) mmol/L Anion Gap 7 (3-11) BUN 15 (6-23) mg/dl Creatinine 0.72 (0.6-1.4) mg/dl Est Cr Clr Drug Dosing 111.2 ml/min Est GFR ( Amer) 116.7 ml/min Est GFR (Non-Af Amer) 100.7 ml/min BUN/Creatinine Ratio 20.8 H (10-20) Glucose 132 H (70-99(Fasting)) mg/dl POC Glucose 108 H (70-99) mg/dl Calcium 8.8 (8.5-10.1) mg/dl Phosphorus 3.2 (2.5-4.9) mg/dl Magnesium 1.7 (1.7-2.4) mg/dl Total Bilirubin 0.9 (0.2-1.0) mg/dl AST 18 (13-39) U/L ALT 21 (7-52) U/L Alkaline Phosphatase 105 H (34-104) U/L C-Reactive Protein 14.35 H (0-0.5) mg/dl Total Protein 6.8 (6.0-8.3) gm/dl Albumin 3.0 L (3.4-5.0) gm/dl Globulin 3.8 (2.5-4.0) gm/dl Albumin/Globulin Ratio 0.8 L (0.9-2) Procalcitonin (0-0.5) ng/ml PG Care Time/CCT Total # of Minutes Spent Total Time Spent with Patient: Total time spent is greater than 50% in coordination of care (as documented) at patient's floor/unit and/or counseling patient: Coding Level of Care Code 19367 Subseq Hosp Care Lvl 3 Diagnoses COVID-19 U07.1 Acute respiratory failure with hypoxia J96.01 Pulmonary emboli I26.99 GERD (gastroesophageal reflux disease) K21.9 Diabetes E11.9 CAD (coronary artery disease) I25.10 Hypomagnesemia E83.42 Metabolic acidosis E87.2 Hyponatremia E87.1 Hypotension I95.9
[2021-06-25] MEDS ORDERED: CEFEPIME 2,000 MG in SYRINGE 0 ML IV SCH (12:00)
[2021-06-25] MEDS: DOXYCYCLINE HYCLATE 100 MG in DEXTROSE 5% 100 ML IV SCH ×2 (12:45→23:06)
[2021-06-25] MEDS: CEFEPIME 2,000 MG in SYRINGE 0 ML IV SCH ×2 (12:45→20:26)
[2021-06-25] MEDS: INSULIN HUMAN NPH SC SCH (13:28)
[2021-06-25] MEDS: guaiFENesin 600 MG TABCR PO SCH ×2 (13:46→21:46)
[2021-06-25] MEDS: MELATONIN 3 MG TAB PO PRN (20:23)
[2021-06-25] MEDS: PANTOprazole 40 MG TAB PO SCH (20:30)
[2021-06-26] MEDS: CEFEPIME 2,000 MG in SYRINGE 0 ML IV SCH ×3 (04:21→21:41)
[2021-06-26] MEDS: SODIUM CHLOR 7% 4 ML NEB NEB SCH ×2 (07:57→19:22)
[2021-06-26] MEDS: ALBUT/IPRATROP 3MG/0.5MG NEB 3 ML VIAL NEB SCH ×2 (07:57→19:22)
[2021-06-26 08:21] LABS: Basophils # (auto) 0.01 K/uL (0-0.2); Basophils % (auto) 0.1 %; Eosinophils # (auto) 0.02 K/uL (0-0.5); Eosinophils % (auto) 0.1 %; Hematocrit (blood only) 37.3 % (42-52); Hemoglobin 12.5 g/dL (14.0-18.0); Immature Granulocytes # (auto) 0.04 K/uL (0.00-0.02); Immature Granulocytes % (auto) 0.3 %; Lymphocytes # (auto) 0.83 K/uL (1.2-3.4); Lymphocytes % (auto) 5.5 %; Mean Corpuscular Hemoglobin 29.6 pg (25-34); Mean Corpuscular Hgb Conc 33.5 g/dL (32-36); Mean Corpuscular Volume 88.2 fL (80-100); Monocytes # (auto) 1.04 K/uL (0.11-0.59); Monocytes % (auto) 6.9 %; Neutrophils # (auto) 13.15 K/uL (1.4-6.5); Neutrophils % (auto) 87.1 %; Platelet Count 327 K/uL (130-400); RDW Coefficient of Variation 13.3 % (11.5-14.5); RDW Standard Deviation 42.9 fL (36.4-46.3); Red Blood Count 4.23 M/uL (4.7-6.1); White Blood Count 15.09 K/uL (4.8-10.8)
[2021-06-26] MEDS: carvediloL 6.25 MG TAB PO SCH ×2 (08:31→21:42)
[2021-06-26 08:34] LABS: BUN Creatinine Ratio 23.6 (10-20); C Reactive Protein 5.23 mg/dl (0-0.5); Calcium 9.5 mg/dl (8.5-10.1); Creatinine Clr Calc Pharmacy 111.2 ml/min; Est GFR (African American) 116.7 ml/min; Est GFR (Non-African American) 100.7 ml/min; Magnesium 1.7 mg/dl (1.7-2.4); Potassium 4.5 mmol/L (3.5-5.1)
[2021-06-26] MEDS: ASPIRIN 81 MG ECTAB PO SCH (08:35)
[2021-06-26] MEDS: dexAMETHasone 6 MG in SYRINGE 0 ML IV SCH (08:35)
[2021-06-26] MEDS: DOCUSATE SODIUM/SENNA 50/8.6MG TAB PO SCH (08:36)
[2021-06-26] MEDS: RIVAROXABAN 15 MG TAB PO SCH ×2 (08:36→21:45)
[2021-06-26] MEDS: guaiFENesin 600 MG TABCR PO SCH ×2 (08:37→21:43)
[2021-06-26] MEDS: HYDROXYCHLOROQUINE SULFATE 200 MG TAB PO SCH ×2 (08:39→21:43)
[2021-06-26] MEDS: ADVANCED PROBIOTIC 1250 MG CAPSULE PO SCH (09:02)
[2021-06-26] MEDS: POLYETHYLENE (MIRALAX) 17 GM PACK PO SCH (09:03)
[2021-06-26] MEDS: INSULIN ASPART PER UNIT SC SCH ×4 (09:08→21:44)
[2021-06-26] MEDS: INSULIN HUMAN NPH SC SCH (09:08)
[2021-06-26] MEDS: DOXYCYCLINE HYCLATE 100 MG in DEXTROSE 5% 100 ML IV SCH ×2 (11:56→23:41)
--- NOTE | 2021-06-26 15:22 | Hospitalist Progress Note ---
Date of Service June 26, 2021 Assessment & Plan (1) COVID-19: Plan: Covid-19 pneumonia Elevated CRP of 18.92 on admission, trended down to 3-4, but then back up to 14 after being off of steroids for 3 days WBC count up to 15 from 11 despite bein michaela abx, did have some chills but no fever. Patient reports recently having the flu in April, feels like he never quite recovered. He also reports having PNA 7x in the past Has a h/o SLE on HQN D-dimer 29,000 after admission--> CTA Chest shows + bilateral numerous subsegmental upper lobe PEs and extensive PNA Was on Vapotherm for many days, since then was weaned down to 2LNC and was doing much better, however now requiring 6 L nasal cannula at rest and fails two-step walk test for the last several days in a row-cannot maintain pulse ox greater than 88% for more than 2 minutes on 6 L nasal cannula Is ambulating frequently around the room Lasix trial on 06/22 caused hypotension and tachycardia in to the 20s, resolved with small bolus NS 250mL Does have Raynaud's noted on exam, 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, but now with forehead monitor Had mucous plugging incident causing worsening hypoxia in the morning of 06/24 Chest x-ray on 06/24 shows stable multifocal opacities compared to 1 week prior and PULM review thinks developing fibrosis and traction bronchiectasis Completed 10-day course of dexamethasone 6mg IV daily on 06/21, however given worsening CRP,oxygenation requirement--> restarted dexamethasone 6 mg IV once daily on 06/24 Completed a 14-day course of baricitinib 4mg daily continue flutter valve, incentive spirometer prone as much as possible avoid lasix due to hypotensive episode -no role for Remdesevir given prolonged course prior to admission - no antibiotics ever given as procalcitonin is normal, however with rising WBC count and CRP and failure to improve, is immune suppressed--> start Cefepime and doxy on 06/25 x 5 day course, given symptomatic improvement will continue this -Continue on nasal saline to see if this helps with passage of O2 through nostrils -add Mucinex 1200mg po bid Can only discharge once he is requiring 6 L or less via nasal cannula with exertion Will repeat his two-step walk test prior to discharge (2) Acute respiratory failure with hypoxia: Plan: 06/16 covid PNA as above Does have multiple bilateral subsegmental PEs but these are not contributing to his hypoxia With slight increased oxygen requirement at rest on 06/24, likely secondary to mucous plugging-no evidence of DVT clinically and I do not suspect new PE continue supplemental O2 and wean off as tolerated pulm toilet, continue nebs prn, steroids, starting abx (3) Pulmonary emboli: Plan: as above, multiple bilat subsegmental PEs on CTA CHest they are very small, nothing central, doubt that they are contributing to hypoxemia Xarelto 15mg BID x 3 weeks then 20mg daily starting on 07/03 Recommend 3 months of anticoagulation proBNP and troponin both negative, hemodynamically stable-no need for echocardiogram Checked venous Dopplers--> negative. If had bleeding issues, would be ok to stop anticoagulation (4) GERD (gastroesophageal reflux disease): Plan: Chronic. Well controlled -Continue Protonix 40mg po daily (5) Diabetes: Plan: Blood sugar now with hyperglycemia due to steroids being restarted HgbA1C 7.6% -Continue to hold Metformin, Trulicity, and Jardiance but can restart these upon discharge -Continue NovoLog supplemental insulin - add NPH again as adding back on dexamethasone-start 8 units qAM and titrate up as needed (6) CAD (coronary artery disease): Plan: With a h/o ID in 2008, a total of 11 stents since that time, most recent in 10/2017 No cardiac issues ie angina or exercise intolerance prior to admission Discussed need for anticoagulation with his Rn Transition, Dr. Edu Yost, at [facility] Pres--> ok to dc Plavix to avoid triple tx -Continue ASA, Carvedilol and Lisinopril on Repatha for cholesterol, administered on 06/13-receives injections every 2 weeks (7) Hypomagnesemia: Plan: mildly low today, replace with 1 gram IV mag follow level (8) Metabolic acidosis: Plan: resolved (9) Hyponatremia: Plan: Resolved (10) Hypotension: Plan: BPs 80s systolic, asymptomatic, occurred after restarting ACEi at a lower dose than home dose. Occurred again after IV lasix given as above dcd lisinopril continue Coreg with hold parameters given h/o CAD - although metoprolol succinate may be a better choice in the future with his christin Plan: Ppx - [place] Code - Full per discussion with patient Dispo - continue to wean oxygen, go home once down to no more than 6 L nasal cannula with exertion, expect he will be here at least another week Admission and Anticipated Discharge Date Admission Date: June 11, 2021 Subjective Reports significant improvement from yesterday to today with his shortness of breath. After significant worsening 2 nights ago where he felt he could not catch his breath. Restarted on dexamethasone 2 days ago, started on antibiotics 1 day ago. No fever or chills. No lower extremity swelling. Saturations drop to mid 80s while talking or mild exertion. No constipation. Review of Systems Review of Systems: All systems reviewed & are unremarkable except as noted in Subjective Physical Exam Constitutional: WD/WN, vitals as above Eyes: + anicteric sclerae Neck: trachea midline, no thyromegaly Respiratory: normal respiratory effort; no cough Auscultation: + diminished lung sounds (bibasal) and + crackles (left base); no wheezes Cardiovascular: RRR, no murmur, no edema Gastrointestinal (Abdomen): normal bowel sounds, soft, nontender, no hepatosplenomegaly Musculoskeletal: Extremities: extremities normal to inspection; no cyanosis and no clubbing Skin: no rashes, warm and dry Neurologic: moves all extremities and awake; no focal motor deficits and not confused Psychiatric: A+Ox3, euthymic affect Results & Data Results & Data ([facility]) Vital Signs (Past 12 Hours) Vital Signs Temp Pulse Pulse Resp BP Pulse Ox 06/26/21 12:12 36.7 C 88 88 20 105/60 91 06/26/21 07:59 94 H 20 89 L 06/26/21 04:25 36.4 C L 71 20 94/62 L 91 PG Care Time/CCT Total # of Minutes Spent Total Time Spent with Patient: Total time spent is greater than 50% in coordination of care (as documented) at patient's floor/unit and/or counseling patient: Coding Level of Care Code 32534 Subseq Hosp Care Lvl 2 Diagnoses COVID-19 U07.1 Acute respiratory failure with hypoxia J96.01 Pulmonary emboli I26.99 GERD (gastroesophageal reflux disease) K21.9 Diabetes E11.9 CAD (coronary artery disease) I25.10 Hypomagnesemia E83.42 Metabolic acidosis E87.2 Hyponatremia E87.1 Hypotension I95.9
[2021-06-26] MEDS: PANTOprazole 40 MG TAB PO SCH (21:47)
[2021-06-27] MEDS: CEFEPIME 2,000 MG in SYRINGE 0 ML IV SCH ×3 (05:13→20:49)
[2021-06-27] MEDS: SODIUM CHLOR 7% 4 ML NEB NEB SCH ×2 (07:45→19:15)
[2021-06-27] MEDS: ALBUT/IPRATROP 3MG/0.5MG NEB 3 ML VIAL NEB SCH ×2 (07:45→19:15)
[2021-06-27 08:03] LABS: Basophils # (auto) 0.01 K/uL (0-0.2); Basophils % (auto) 0.1 %; Eosinophils # (auto) 0.05 K/uL (0-0.5); Eosinophils % (auto) 0.4 %; Hematocrit (blood only) 34.4 % (42-52); Hemoglobin 11.6 g/dL (14.0-18.0); Immature Granulocytes # (auto) 0.06 K/uL (0.00-0.02); Immature Granulocytes % (auto) 0.5 %; Lymphocytes # (auto) 1.02 K/uL (1.2-3.4); Lymphocytes % (auto) 8.6 %; Mean Corpuscular Hemoglobin 30.1 pg (25-34); Mean Corpuscular Hgb Conc 33.7 g/dL (32-36); Mean Corpuscular Volume 89.1 fL (80-100); Mean Platelet Volume 10.4 fL (7.4-10.4); Monocytes # (auto) 0.93 K/uL (0.11-0.59); Monocytes % (auto) 7.8 %; Neutrophils # (auto) 9.85 K/uL (1.4-6.5); Neutrophils % (auto) 82.6 %; Platelet Count 254 K/uL (130-400); RDW Coefficient of Variation 13.5 % (11.5-14.5); RDW Standard Deviation 43.7 fL (36.4-46.3); Red Blood Count 3.86 M/uL (4.7-6.1); White Blood Count 11.92 K/uL (4.8-10.8)
[2021-06-27 08:31] LABS: BUN Creatinine Ratio 23.3 (10-20); Calcium 9.3 mg/dl (8.5-10.1); Creatinine Clr Calc Pharmacy 109.7 ml/min; Est GFR (Non-African American) 100.1 ml/min; Potassium 4.1 mmol/L (3.5-5.1)
[2021-06-27] MEDS: ASPIRIN 81 MG ECTAB PO SCH (08:57)
[2021-06-27] MEDS: DOCUSATE SODIUM/SENNA 50/8.6MG TAB PO SCH (08:58)
[2021-06-27] MEDS: ADVANCED PROBIOTIC 1250 MG CAPSULE PO SCH (08:58)
[2021-06-27] MEDS: guaiFENesin 600 MG TABCR PO SCH ×2 (08:58→20:52)
[2021-06-27] MEDS: HYDROXYCHLOROQUINE SULFATE 200 MG TAB PO SCH ×2 (08:58→20:53)
[2021-06-27] MEDS: POLYETHYLENE (MIRALAX) 17 GM PACK PO SCH (08:59)
[2021-06-27] MEDS: carvediloL 6.25 MG TAB PO SCH ×2 (08:59→20:51)
[2021-06-27] MEDS: RIVAROXABAN 15 MG TAB PO SCH ×2 (08:59→20:53)
[2021-06-27] MEDS: INSULIN ASPART PER UNIT SC SCH ×4 (09:13→20:49)
[2021-06-27] MEDS ORDERED: REPATHA 140 MG SQ ONE (10:00)
[2021-06-27] MEDS: INSULIN HUMAN NPH SC SCH (10:17)
[2021-06-27] MEDS: dexAMETHasone 6 MG in SYRINGE 0 ML IV SCH (10:18)
[2021-06-27] MEDS: DOXYCYCLINE HYCLATE 100 MG in DEXTROSE 5% 100 ML IV SCH ×2 (12:35→23:54)
[2021-06-27] MEDS ORDERED: PHARMACY GLYCEMIC MGMT CONSULT PRN (15:17)
--- NOTE | 2021-06-27 15:51 | Hospitalist Progress Note ---
Date of Service June 27, 2021 Assessment & Plan (1) COVID-19: Plan: Covid-19 pneumonia Elevated CRP of 18.92 on admission, trended down to 3-4, but then back up to 14 after being off of steroids for 3 days WBC count up to 15 from 11 despite being off abx, did have some chills but no fever. Patient reports recently having the flu in April, feels like he never quite recovered. He also reports having PNA 7x in the past Has a h/o SLE on HQN D-dimer 29,000 after admission--> CTA Chest shows + bilateral numerous subsegmental upper lobe PEs and extensive PNA Was on Vapotherm for many days, since then was weaned down to 2LNC and was doing much better, however now requiring 6 L nasal cannula at rest and fails two-step walk test for the last several days in a row-cannot maintain pulse ox greater than 88% for more than 2 minutes on 6 L nasal cannula Is ambulating frequently around the room Lasix trial on 06/22 caused hypotension and tachycardia in to the 20s, resolved with small bolus NS 250mL Does have Raynaud's noted on exam, difficult to vegetable picker POx, but now with forehead monitor Had mucous plugging incident causing worsening hypoxia in the morning of 06/24 Chest x-ray on 06/24 shows stable multifocal opacities compared to 1 week prior and PULM review thinks developing fibrosis and traction bronchiectasis Completed 10-day course of dexamethasone 6mg IV daily on 06/21, however given worsening CRP,oxygenation requirement--> restarted dexamethasone 6 mg IV once daily on 06/24, could consider increasing if he does not continue to improve but for now will keep it as a daily dose Completed a 14-day course of baricitinib 4mg daily continue flutter valve, incentive spirometer prone as much as possible avoid lasix due to hypotensive episode - no role for Remdesevir given prolonged course prior to admission - no antibiotics previously given as procalcitonin was normal, however with rising WBC count and CRP and decline with immunosuppression--> start Cefepime and doxy on 06/25 x 5 day course (7 days for doxy), given symptomatic improvement will continue this -Continue on nasal saline to see if this helps with passage of O2 through nostrils -add Mucinex 1200mg po bid Can only discharge once he is requiring 6 L or less via nasal cannula with exertion Will repeat his two-step walk test prior to discharge (2) Acute respiratory failure with hypoxia: Plan: 06/16 covid PNA as above Does have multiple bilateral subsegmental PEs but these are not contributing to his hypoxia With slight increased oxygen requirement at rest on 06/24, likely secondary to mucous plugging-no evidence of DVT clinically and I do not suspect new PE continue supplemental O2 and wean off as tolerated pulm toilet, continue nebs prn, steroids, starting abx Aim O2 sats > 90% (3) Pulmonary emboli: Plan: as above, multiple bilat subsegmental PEs on CTA CHest they are very small, nothing central, doubt that they are contributing to hypoxemia Xarelto 15mg BID x 3 weeks then 20mg daily starting on 07/03 Recommend 3 months of anticoagulation proBNP and troponin both negative, hemodynamically stable-no need for echocardiogram Checked venous Dopplers--> negative. If had bleeding issues, would be ok to stop anticoagulation (4) GERD (gastroesophageal reflux disease): Plan: Chronic. Well controlled -Continue Protonix 40mg po daily (5) Diabetes: Plan: Blood sugar now with hyperglycemia due to steroids being restarted HgbA1C 7.6% -Continue to hold Metformin, Trulicity, and Jardiance but can restart these upon discharge -Continue NovoLog supplemental insulin - add NPH again as adding back on dexamethasone-start 8 units qAM and titrate up as needed, consult pharamacy for ongoing insulin requirement given IV steroid use and hyperglycemia (6) CAD (coronary artery disease): Plan: With a h/o [place] in 2008, a total of 11 stents since that time, most recent in 10/2017 No cardiac issues ie angina or exercise intolerance prior to admission Discussed need for anticoagulation with his Fitting Room Maintenance Mechanic, Dr. Edu Yost, at [facility] Presby--> ok to dc Plavix to avoid triple tx -Continue ASA, Carvedilol and Lisinopril on Repatha for cholesterol, administered on 06/13-receives injections every 2 weeks (7) Hypomagnesemia: Plan: Replace as needed, will repeat intermittently (8) Metabolic acidosis: Plan: resolved (9) Hyponatremia: Plan: Resolved (10) Hypotension: Plan: BPs 80s systolic, asymptomatic, occurred after restarting ACEi at a lower dose than home dose. Occurred again after IV lasix given as above dcd lisinopril continue Coreg with hold parameters given h/o CAD - although metoprolol succinate may be a better choice in the future with his christin will continue his chronic medications for now Plan: Ppx - Xarelto Code - Full per discussion with patient Dispo - continue to wean oxygen, go home once down to no more than 6 L nasal cannula with exertion Admission and Anticipated Discharge Date Admission Date: June 11, 2021 Subjective Making slow improvements again but not back to where he was last week. Previously improved to 2LPM O2 at rest (but still failing 2 step on exertion) and currently 6LPM O2 at rest. Doing laps around his bed 10 times. Proning while sleeping. No chest pain. No fever or chills. Review of Systems Review of Systems: All systems reviewed & are unremarkable except as noted in Subjective Physical Exam Constitutional: WD/WN, vitals as above Eyes: + anicteric sclerae Neck: trachea midline, no thyromegaly Respiratory: normal respiratory effort; no cough Auscultation: + diminished lung sounds (right base); no crackles and no wheezes Cardiovascular: RRR, no murmur, no edema Gastrointestinal (Abdomen): normal bowel sounds, soft, nontender, no hepatosplenomegaly Musculoskeletal: Extremities: extremities normal to inspection; no cyanosis and no clubbing Skin: no rashes, warm and dry Neurologic: moves all extremities and awake; no focal motor deficits and not confused Psychiatric: A+Ox3, euthymic affect Results & Data Results & Data ([facility]) Vital Signs (Past 12 Hours) Vital Signs Temp Pulse Pulse Pulse Resp BP BP 06/27/21 14:27 95 H 120/68 06/27/21 14:06 63 06/27/21 12:15 36.5 C 92 H 20 85/48 L 06/27/21 07:46 81 22 06/27/21 07:29 36.3 C L 85 24 95/57 L Pulse Ox 06/27/21 14:27 06/27/21 14:06 06/27/21 12:15 96 06/27/21 07:46 91 06/27/21 07:29 87 L PG Care Time/CCT Total # of Minutes Spent Total Time Spent with Patient: Total time spent is greater than 50% in coordination of care (as documented) at patient's floor/unit and/or counseling patient: Coding Level of Care Code 09631 Subseq Hosp Care Lvl 2 Diagnoses COVID-19 U07.1 Acute respiratory failure with hypoxia J96.01 Pulmonary emboli I26.99 GERD (gastroesophageal reflux disease) K21.9 Diabetes E11.9 CAD (coronary artery disease) I25.10 Hypomagnesemia E83.42 Metabolic acidosis E87.2 Hyponatremia E87.1 Hypotension I95.9
--- NOTE | 2021-06-27 16:11 | Pharmacy Report ---
Pharmacy Glycemic Short Note 2 - Date of Service June 27, 2021 - Glycemic Short BSG Results (Last 24 hours): 06/26/21 06/26/21 06/27/21 16:37 20:41 07:25 Glucose POC Glucose 202 H 168 H 133 H 06/27/21 06/27/21 07:44 11:44 Glucose 125 H POC Glucose 284 H OUTPATIENT ANTIDIABETIC REGIMEN: * Metformin 1000 mg PO BIDM * Jardiance 10 mg PO qAM * Trulicity 1.5 mg SC weekly (Sundays) * HbA1c 7.6% (06/19/21) ASSESSMENT: 06/27/21 * Pharmacy signed off consult 06/23, reconsulted 06/27 * Patient restarted Dexamethasone IV on 06/24, blood sugars elevated throughout the day d/t steroid induced hyperglycemia * Patient was started on NPH with Dexamethasone on 06/24 at 8 units, likely insufficient dosing, will increase for tomorrow * Patient also requires tighter CF/CR while on steroids, tighten starting with dinner today 06/22 * Blood sugars at goal, dropped to 80mg/dl prior to dinner, will loosen CR to prevent hypoglycemia * Patient received no basal insulin yesterday, fasting 107mg/dl this morning, no basal needed anymore, off steroids (last dose 06/20) 06/20 * BSGs much improved yesterday, ranging 98-155 mg/dL * Final dose of dexamethasone 6 mg IV daily given today - NPH will be discontinued after today's dose * Lunch BSG of 85 mg/dL, will loosen Novolog parameters now that steroids are discontinued * Possible discharge home tomorrow 06/19 * BM is a 61 year old male admitted on 06/11/21 with COVID-19 pneumonia * Pertinent PMH includes CAD (hx of [place] in 2008), active PE, GERD * Patient intermittently hyperglycemic during admission, likely related to IV dexamethasone * Pharmacy consulted yesterday evening for BSG > 300 mg/dL * Will add conservative NPH with IV dexamethasone and tighten Novolog parameters PLAN FOR INPATIENT GLYCEMIC CONTROL: * Hold outpatient oral diabetes medications * Basal insulin * NPH 15 units with IV Dexamethasone * Bolus insulin * NovoLog per scale ACHS or Q6hrs while NPO * Goal Range: Low 110 mg/dL - High 140 mg/dL * Correction Factor: 25 mg/dL/unit * Nutritional / Prandial insulin per carb ratio of 1 unit per 7 grams CHO consumed PLAN FOR DISCHARGE: * HbA1c of 7.6% is slightly above goal of less than 7%, but reasonable to discharge with current outpatient regimen * Patient currently on recommended antidiabetic medications (SGLT2 inhibitor + GLP-1 RA) given ASCVD (hx of [place]) * Support Patient Self-Management * Healthy Lifestyle (diet and exercise) * Disease self-management (SMBG) * Prevention of complications (BP, Lipid goals, Immunizations) * Consider outpatient Diabetes Self-Management Education & Support
[2021-06-27] MEDS: MELATONIN 3 MG TAB PO PRN (20:50)
[2021-06-27] MEDS: PANTOprazole 40 MG TAB PO SCH (20:53)
[2021-06-28] MEDS: CEFEPIME 2,000 MG in SYRINGE 0 ML IV SCH ×3 (04:26→20:52)
[2021-06-28] MEDS: SODIUM CHLOR 7% 4 ML NEB NEB SCH ×2 (07:11→19:26)
[2021-06-28] MEDS: ALBUT/IPRATROP 3MG/0.5MG NEB 3 ML VIAL NEB SCH ×2 (07:11→19:26)
[2021-06-28] MEDS: INSULIN ASPART PER UNIT SC SCH ×4 (09:01→21:01)
[2021-06-28] MEDS: carvediloL 6.25 MG TAB PO SCH ×2 (09:07→20:52)
[2021-06-28] MEDS: dexAMETHasone 6 MG in SYRINGE 0 ML IV SCH (09:07)
[2021-06-28] MEDS: RIVAROXABAN 15 MG TAB PO SCH ×2 (09:07→20:53)
[2021-06-28] MEDS: POLYETHYLENE (MIRALAX) 17 GM PACK PO SCH (09:08)
[2021-06-28] MEDS: DOCUSATE SODIUM/SENNA 50/8.6MG TAB PO SCH (09:08)
[2021-06-28] MEDS: HYDROXYCHLOROQUINE SULFATE 200 MG TAB PO SCH ×2 (09:08→20:54)
[2021-06-28] MEDS: ADVANCED PROBIOTIC 1250 MG CAPSULE PO SCH (09:09)
[2021-06-28] MEDS: ASPIRIN 81 MG ECTAB PO SCH (09:09)
[2021-06-28] MEDS: guaiFENesin 600 MG TABCR PO SCH ×2 (09:10→20:53)
[2021-06-28] MEDS: INSULIN HUMAN NPH SC SCH (09:30)
[2021-06-28] MEDS: DOXYCYCLINE HYCLATE 100 MG in DEXTROSE 5% 100 ML IV SCH ×2 (12:23→23:51)
--- NOTE | 2021-06-28 14:00 | Pharmacy Report ---
Pharmacy Glycemic Short Note 2 - Date of Service June 28, 2021 - Glycemic Short BSG Results (Last 24 hours): 06/27/21 06/27/21 06/28/21 16:31 20:31 07:33 POC Glucose 168 H 261 H 126 H 06/28/21 11:36 POC Glucose 232 H OUTPATIENT ANTIDIABETIC REGIMEN: * Metformin 1000 mg PO BIDM * Jardiance 10 mg PO qAM * Trulicity 1.5 mg SC weekly (Sundays) * HbA1c 7.6% (06/19/21) ASSESSMENT: 06/28/21 * BSGs were [phone] mg/dL yesterday and 126 mg/dL fasting this morning. * 15 units of NPH given this am with dexamethasone 6mg IV dose- increased from 8 units from previous days due to uncontrolled BSGs. * Patient received 38 units of insulin yesterday- 8 units basal and 30 units bolus. * After adjusting CF from 30 to 25 and CR from 12 to 7, patients lunch time is still 232. Will evaluate the rest of the day and make adjustment tomorrow morning if meal times are still high. 06/27/21 * Pharmacy signed off consult 06/23, reconsulted 06/27 * Patient restarted Dexamethasone IV on 06/24, blood sugars elevated throughout the day d/t steroid induced hyperglycemia * Patient was started on NPH with Dexamethasone on 06/24 at 8 units, likely insufficient dosing, will increase for tomorrow * Patient also requires tighter CF/CR while on steroids, tighten starting with dinner today 06/22 * Blood sugars at goal, dropped to 80mg/dl prior to dinner, will loosen CR to prevent hypoglycemia * Patient received no basal insulin yesterday, fasting 107mg/dl this morning, no basal needed anymore, off steroids (last dose 06/20) 06/20 * BSGs much improved yesterday, ranging 98-155 mg/dL * Final dose of dexamethasone 6 mg IV daily given today - NPH will be discontinued after today's dose * Lunch BSG of 85 mg/dL, will loosen Novolog parameters now that steroids are discontinued * Possible discharge home tomorrow 06/19 * BM is a 61 year old male admitted on 06/11/21 with COVID-19 pneumonia * Pertinent PMH includes CAD (hx of [place] in 2008), active PE, GERD * Patient intermittently hyperglycemic during admission, likely related to IV dexamethasone * Pharmacy consulted yesterday evening for BSG > 300 mg/dL * Will add conservative NPH with IV dexamethasone and tighten Novolog parameters PLAN FOR INPATIENT GLYCEMIC CONTROL: * Hold outpatient oral diabetes medications * Basal insulin * NPH 15 units with IV Dexamethasone * Bolus insulin * NovoLog per scale ACHS or Q6hrs while NPO * Goal Range: Low 110 mg/dL - High 140 mg/dL * Correction Factor: 25 mg/dL/unit * Nutritional / Prandial insulin per carb ratio of 1 unit per 7 grams CHO consumed PLAN FOR DISCHARGE: * HbA1c of 7.6% is slightly above goal of less than 7%, but reasonable to dis charge with current outpatient regimen * Patient currently on recommended antidiabetic medications (SGLT2 inhibitor + GLP-1 RA) given ASCVD (hx of [place]) * Support Patient Self-Management * Healthy Lifestyle (diet and exercise) * Disease self-management (SMBG) * Prevention of complications (BP, Lipid goals, Immunizations) * Consider outpatient Diabetes Self-Management Education & Support
--- NOTE | 2021-06-28 20:10 | Hospitalist Progress Note ---
Date of Service June 28, 2021 Assessment & Plan (1) COVID-19: Plan: Covid-19 pneumonia Elevated CRP of 18.92 on admission, trended down to 3-4, but then back up to 14 after being off of steroids for 3 days WBC count up to 15 from 11 despite being off abx, did have some chills but no fever. Patient reports recently having the flu in April, feels like he never quite recovered. He also reports having PNA 7x in the past Has a h/o SLE on HQN D-dimer 29,000 after admission--> CTA Chest shows + bilateral numerous subsegmental upper lobe PEs and extensive PNA Was on Vapotherm for many days, since then was weaned down to 2LNC and was doing much better, however now requiring 6 L nasal cannula at rest and fails two-step walk test for the last several days in a row-cannot maintain pulse ox greater than 88% for more than 2 minutes on 6 L nasal cannula Is ambulating frequently around the room Lasix trial on 06/22 caused hypotension and tachycardia in to the 20s, resolved with small bolus NS 250mL Does have Raynaud's noted on exam, difficult to shredder picker POx, but now with forehead monitor Had mucous plugging incident causing worsening hypoxia in the morning of 06/24 Chest x-ray on 06/24 shows stable multifocal opacities compared to 1 week prior and PULM review thinks developing fibrosis and traction bronchiectasis Completed 10-day course of dexamethasone 6mg IV daily on 06/21, however given worsening CRP,oxygenation requirement--> restarted dexamethasone 6 mg IV once daily on 06/24, could consider increasing if he does not continue to improve but for now will keep it as a daily dose Completed a 14-day course of baricitinib 4mg daily continue flutter valve, incentive spirometer prone as much as possible avoid lasix due to hypotensive episode - no role for Remdesevir given prolonged course prior to admission - no antibiotics previously given as procalcitonin was normal, however with rising WBC count and CRP and decline with immunosuppression--> started Cefepime and doxy on 06/25 x 5 day course (7 days for doxy), given symptomatic improvement will continue this -Continue on nasal saline to see if this helps with passage of O2 through nostrils -continue Mucinex 1200mg po bid Can only discharge once he is requiring 6 L or less via nasal cannula with exertion Will repeat his two-step walk test prior to discharge (2) Acute respiratory failure with hypoxia: Plan: 06/16 covid PNA as above Does have multiple bilateral subsegmental PEs but these are not contributing to his hypoxia With slight increased oxygen requirement at rest on 06/24, likely secondary to mucous plugging-no evidence of DVT clinically and I do not suspect new PE continue supplemental O2 and wean off as tolerated pulm toilet, continue nebs prn, steroids, starting abx Aim O2 sats > 90% (3) Pulmonary emboli: Plan: as above, multiple bilat subsegmental PEs on CTA CHest they are very small, nothing central, doubt that they are contributing to hypoxemia Xarelto 15mg BID x 3 weeks then 20mg daily starting on 07/03 Recommend 3 months of anticoagulation proBNP and troponin both negative, hemodynamically stable-no need for echocardiogram Checked venous Dopplers--> negative. If had bleeding issues, would be ok to stop anticoagulation (4) GERD (gastroesophageal reflux disease): Plan: Chronic. Well controlled -Continue Protonix 40mg po daily (5) Diabetes: Plan: Blood sugar now with hyperglycemia due to steroids being restarted HgbA1C 7.6% -Continue to hold Metformin, Trulicity, and Jardiance but can restart these upon discharge -Continue NovoLog supplemental insulin - pharmacy consulted for ongoing glycemic management in setting of dexamethasone use (6) CAD (coronary artery disease): Plan: With a h/o OR in 2008, a total of 11 stents since that time, most recent in 10/2017 No cardiac issues ie angina or exercise intolerance prior to admission Discussed need for anticoagulation with his Collections Attorney, Dr. Edu Yost, at [facility]--> ok to dc Plavix to avoid triple tx -Continue ASA, Carvedilol and Lisinopril on Repatha for cholesterol, administered on 06/13-receives injections every 2 weeks (7) Hypomagnesemia: Plan: Replace as needed, will repeat intermittently (8) Metabolic acidosis: Plan: resolved (9) Hyponatremia: Plan: Resolved (10) Hypotension: Plan: BPs 80s systolic, asymptomatic, occurred after restarting ACEi at a lower dose than home dose. Occurred again after IV lasix given as above dcd lisinopril continue Coreg with hold parameters given h/o CAD - although metoprolol succinate may be a better choice in the future with his reynnatalies will continue his chronic medications for now to avoid angina Plan: Ppx - [place] Code - Full per discussion with patient Dispo - continue to wean oxygen, go home once down to no more than 6 L nasal cannula with exertion Admission and Anticipated Discharge Date Admission Date: June 11, 2021 Subjective Reports continued improvement in his shortness of breath however hypoxia has rather stagnated. Previously improved to 2LPM O2 at rest (but still failing 2 step on exertion) and currently 5LPM O2 at rest. Reports nearly getting up to 200 laps around his bed today. Proning while sleeping. No chest pain. No fever or chills. No significant leg edema (mild swelling of just his foot). Review of Systems Review of Systems: All systems reviewed & are unremarkable except as noted in Subjective Physical Exam Constitutional: WD/WN, vitals as above Eyes: + anicteric sclerae Neck: trachea midline, no thyromegaly Respiratory: normal respiratory effort; no cough Auscultation: + crackles (fine bibasal); no diminished lung sounds and no wheezes Cardiovascular: RRR, no murmur, no edema Gastrointestinal (Abdomen): normal bowel sounds, soft, nontender, no hepatosplenomegaly Musculoskeletal: Extremities: extremities normal to inspection; no cyanosis and no clubbing Skin: no rashes, warm and dry Neurologic: moves all extremities and awake; no focal motor deficits and not confused Psychiatric: A+Ox3, euthymic affect Results & Data Results & Data ([facility]) Vital Signs (Past 12 Hours) Vital Signs Temp Pulse Pulse Resp BP BP Pulse Ox 06/28/21 19:28 88 20 89 L 06/28/21 16:43 36.6 C 73 20 124/77 93 06/28/21 15:56 85 06/28/21 11:50 36.7 C 83 18 101/66 93 PG Care Time/CCT Total # of Minutes Spent Total Time Spent with Patient: Total time spent is greater than 50% in coordination of care (as documented) at patient's floor/unit and/or counseling patient: Coding Level of Care Code 83360 Subseq Hosp Care Lvl 2 Diagnoses COVID-19 U07.1 Acute respiratory failure with hypoxia J96.01 Pulmonary emboli I26.99 GERD (gastroesophageal reflux disease) K21.9 Diabetes E11.9 CAD (coronary artery disease) I25.10 Hypomagnesemia E83.42 Metabolic acidosis E87.2 Hyponatremia E87.1 Hypotension I95.9
[2021-06-28] MEDS: PANTOprazole 40 MG TAB PO SCH (20:54)
[2021-06-29] MEDS: CEFEPIME 2,000 MG in SYRINGE 0 ML IV SCH ×3 (05:15→21:24)
[2021-06-29 07:14] LABS: Mean Corpuscular Hgb Conc 33.6 g/dL (32-36); Mean Platelet Volume 10.3 fL (7.4-10.4); Platelet Count 183 K/uL (130-400)
[2021-06-29] MEDS: ALBUT/IPRATROP 3MG/0.5MG NEB 3 ML VIAL NEB SCH ×2 (07:41→19:20)
[2021-06-29] MEDS: SODIUM CHLOR 7% 4 ML NEB NEB SCH ×2 (07:41→19:20)
[2021-06-29 07:42] LABS: Hematocrit (blood only) 36.6 % (42-52); Hemoglobin 12.3 g/dL (14.0-18.0); Mean Corpuscular Hemoglobin 29.9 pg (25-34); Mean Corpuscular Volume 88.8 fL (80-100); RDW Coefficient of Variation 13.4 % (11.5-14.5); RDW Standard Deviation 43.6 fL (36.4-46.3); Red Blood Count 4.12 M/uL (4.7-6.1); White Blood Count 13.52 K/uL (4.8-10.8)
[2021-06-29 07:43] LABS: Basophils # (auto) 0.02 K/uL (0-0.2); Basophils % (auto) 0.1 %; Eosinophils # (auto) 0.21 K/uL (0-0.5); Eosinophils % (auto) 1.6 %; Immature Granulocytes # (auto) 0.09 K/uL (0.00-0.02); Immature Granulocytes % (auto) 0.7 %; Lymphocytes # (auto) 2.06 K/uL (1.2-3.4); Lymphocytes % (auto) 15.2 %; Monocytes # (auto) 0.02 K/uL (0.11-0.59); Monocytes % (auto) 0.1 %; Neutrophils # (auto) 11.12 K/uL (1.4-6.5); Neutrophils % (auto) 82.3 %
[2021-06-29 07:44] LABS: BUN Creatinine Ratio 24.7 (10-20); Calcium 9.6 mg/dl (8.5-10.1); Creatinine Clr Calc Pharmacy 109.7 ml/min; Est GFR (Non-African American) 100.1 ml/min; Magnesium 1.5 mg/dl (1.7-2.4); Potassium 4.7 mmol/L (3.5-5.1)
[2021-06-29] MEDS: dexAMETHasone 6 MG in SYRINGE 0 ML IV SCH ×2 (08:37→21:24)
[2021-06-29] MEDS: carvediloL 6.25 MG TAB PO SCH ×2 (08:38→21:27)
[2021-06-29] MEDS: RIVAROXABAN 15 MG TAB PO SCH ×2 (08:39→21:26)
[2021-06-29] MEDS: guaiFENesin 600 MG TABCR PO SCH ×2 (08:39→21:24)
[2021-06-29] MEDS: ASPIRIN 81 MG ECTAB PO SCH (08:39)
[2021-06-29] MEDS: HYDROXYCHLOROQUINE SULFATE 200 MG TAB PO SCH ×2 (08:40→21:24)
[2021-06-29] MEDS: ADVANCED PROBIOTIC 1250 MG CAPSULE PO SCH (08:40)
[2021-06-29] MEDS: DOCUSATE SODIUM/SENNA 50/8.6MG TAB PO SCH (08:40)
[2021-06-29] MEDS: POLYETHYLENE (MIRALAX) 17 GM PACK PO SCH (08:41)
[2021-06-29] MEDS: INSULIN ASPART PER UNIT SC SCH ×4 (09:22→21:20)
[2021-06-29] MEDS: INSULIN HUMAN NPH SC SCH (09:22)
[2021-06-29] MEDS: MAGNESIUM OXIDE 400 MG TAB PO SCH ×2 (10:31→21:23)
[2021-06-29] MEDS: DOXYCYCLINE HYCLATE 100 MG CAP PO SCH ×2 (12:23→21:31)
--- NOTE | 2021-06-29 12:31 | Pharmacy Report ---
Pharmacy Glycemic Short Note 2 - Date of Service June 29, 2021 - Glycemic Short BSG Results (Last 24 hours): 06/28/21 06/28/21 06/29/21 16:39 20:45 07:02 Glucose 115 H POC Glucose 199 H 155 H 06/29/21 06/29/21 07:22 11:28 Glucose POC Glucose 128 H 228 H OUTPATIENT ANTIDIABETIC REGIMEN: * Metformin 1000 mg PO BIDM * Jardiance 10 mg PO qAM * Trulicity 1.5 mg SC weekly (Sundays) * HbA1c 7.6% (06/19/21) ASSESSMENT: 06/29/21 * Patient received total of 39 units of insulin yesterday, of which 15 units were NPH to cover dexamethasone 6 mg iv daily * Provider now changing to dexamethasone 6 mg iv bid - will plan to global director air and climate change to Lantus to provide longer acting coverage as I anticipate BSGs to trend up with increase in steroids 06/28/21 * BSGs were [phone] mg/dL yesterday and 126 mg/dL fasting this morning. * 15 units of NPH given this am with dexamethasone 6mg IV dose- increased from 8 units from previous days due to uncontrolled BSGs. * Patient received 38 units of insulin yesterday- 8 units basal and 30 units bolus. * After adjusting CF from 30 to 25 and CR from 12 to 7, patients lunch time is still 232. Will evaluate the rest of the day and make adjustment tomorrow morning if meal times are still high. 06/27/21 * Pharmacy signed off consult 06/23, reconsulted 06/27 * Patient restarted Dexamethasone IV on 06/24, blood sugars elevated throughout the day d/t steroid induced hyperglycemia * Patient was started on NPH with Dexamethasone on 06/24 at 8 units, likely insufficient dosing, will increase for tomorrow * Patient also requires tighter CF/CR while on steroids, tighten starting with dinner today 06/22 * Blood sugars at goal, dropped to 80mg/dl prior to dinner, will loosen CR to prevent hypoglycemia * Patient received no basal insulin yesterday, fasting 107mg/dl this morning, no basal needed anymore, off steroids (last dose 06/20) 06/20 * BSGs much improved yesterday, ranging 98-155 mg/dL * Final dose of dexamethasone 6 mg IV daily given today - NPH will be discontinued after today's dose * Lunch BSG of 85 mg/dL, will loosen Novolog parameters now that steroids are discontinued * Possible discharge home tomorrow 06/19 * BM is a 61 year old male admitted on 06/11/21 with COVID-19 pneumonia * Pertinent PMH includes CAD (hx of [place] in 2008), active PE, GERD * Patient intermittently hyperglycemic during admission, likely related to IV dexamethasone * Pharmacy consulted yesterday evening for BSG > 300 mg/dL * Will add conservative NPH with IV dexamethasone and tighten Novolog parameters PLAN FOR INPATIENT GLYCEMIC CONTROL: * Hold outpatient oral diabetes medications * Basal insulin * NPH 15 units x1 * Change to Lantus 10-15 units bid * Bolus insulin * NovoLog per scale ACHS or Q6hrs while NPO * Goal Range: Low 110 mg/dL - High 140 mg/dL * Correction Factor: 20 mg/dL/unit * Nutritional / Prandial insulin per carb ratio of 1 unit per 5 grams CHO consumed PLAN FOR DISCHARGE: * HbA1c of 7.6% is slightly above goal of less than 7%, but reasonable to d ischarge with current outpatient regimen * Patient currently on recommended antidiabetic medications (SGLT2 inhibitor + GLP-1 RA) given ASCVD (hx of [place]) * Support Patient Self-Management * Healthy Lifestyle (diet and exercise) * Disease self-management (SMBG) * Prevention of complications (BP, Lipid goals, Immunizations) * Consider outpatient Diabetes Self-Management Education & Support
--- NOTE | 2021-06-29 17:07 | Hospitalist Progress Note ---
Date of Service June 29, 2021 Assessment & Plan (1) COVID-19: Plan: Covid-19 pneumonia Elevated CRP of 18.92 on admission, trended down to 3-4, but then back up to 14 after being off of steroids for 3 days WBC count up to 15 from 11 despite being off abx, did have some chills but no fever. Patient reports recently having the flu in April, feels like he never quite recovered. He also reports having PNA 7x in the past Has a h/o SLE on HQN D-dimer 29,000 after admission--> CTA Chest shows + bilateral numerous subsegmental upper lobe PEs and extensive PNA Was on Vapotherm for many days, since then was weaned down to 2LNC and was doing much better, however now requiring 6 L nasal cannula at rest and fails two-step walk test for the last several days in a row-cannot maintain pulse ox greater than 88% for more than 2 minutes on 6 L nasal cannula Is ambulating frequently around the room Lasix trial on 06/22 caused hypotension and tachycardia in to the 20s, resolved with small bolus NS 250mL Does have Raynaud's noted on exam, 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 Completed a 14-day course of baricitinib 4mg daily continue flutter valve, incentive spirometer prone as much as possible avoid lasix due to hypotensive episode - no role for Remdesevir given prolonged course prior to admission - no antibiotics previously given as procalcitonin was normal, however with rising WBC count and CRP and decline with immunosuppression--> started Cefepime and doxy on 06/25 x 5 day course (7 days for doxy, switch to oral today), given symptomatic improvement will continue this -Continue on nasal saline to see if this helps with passage of O2 through nostrils -continue Mucinex 1200mg po bid Can only discharge once he is requiring 6 L or less via nasal cannula with exertion Will repeat his two-step walk test prior to discharge (2) Acute respiratory failure with hypoxia: Plan: 06/16 osvaldo PNA as above Does have multiple bilateral subsegmental PEs but these are not contributing to his hypoxia With slight increased oxygen requirement at rest on 06/24, likely secondary to mucous plugging-no evidence of DVT clinically and I do not suspect new PE continue supplemental O2 and wean off as tolerated pulm toilet, continue nebs prn, steroids Aim O2 sats > 90% (3) Pulmonary emboli: Plan: as above, multiple bilat subsegmental PEs on CTA CHest they are very small, nothing central, doubt that they are contributing to hypoxemia Xarelto 15mg BID x 3 weeks then 20mg daily starting on 07/03 Recommend 3 months of anticoagulation proBNP and troponin both negative, hemodynamically stable-no need for echocardiogram Checked venous Dopplers--> negative. If had bleeding issues, would be ok to stop anticoagulation (4) GERD (gastroesophageal reflux disease): Plan: Chronic. Well controlled -Continue Protonix 40mg po daily (5) Diabetes: Plan: Blood sugar now with hyperglycemia due to steroids being restarted HgbA1C 7.6% -Continue to hold Metformin, Trulicity, and Jardiance but can restart these upon discharge -Continue NovoLog supplemental insulin - pharmacy consulted for ongoing glycemic management in setting of dexamethasone use (6) CAD (coronary artery disease): Plan: With a h/o OR in 2008, a total of 11 stents since that time, most recent in 10/2017 No cardiac issues ie angina or exercise intolerance prior to admission Discussed need for anticoagulation with 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 Edu Yost, at [facility]--> ok to dc Plavix to avoid triple tx -Continue ASA, Carvedilol, lisinopril discontinued due to hypotension on Repatha for cholesterol, administered on 06/13-receives injections every 2 weeks (7) Hypomagnesemia: Plan: Replace as needed, start on Mg Ox 400mg PO BID as continuously low (8) Metabolic acidosis: Plan: resolved (9) Hyponatremia: Plan: Resolved (10) Hypotension: Plan: BPs 80s systolic, asymptomatic, occurred after restarting ACEi at a lower dose than home dose. Occurred again after IV lasix given as above dcd lisinopril continue Coreg with hold parameters given h/o CAD - although metoprolol succinate may be a better choice in the future with his reynauds will continue his chronic medications for now to avoid angina Plan: Ppx - Xarelto Code - Full per discussion with patient Dispo - continue to wean oxygen, go home once down to no more than 6 L nasal cannula with exertion Admission and Anticipated Discharge Date Admission Date: June 11, 2021 Subjective Usually having worsening shortness of breath overnight and struggles to keep his O2 sats up in the morning. Less of a productive cough. Very motivated with improving his oxygen levels. CRP down to 3.42 Review of Systems Review of Systems: All systems reviewed & are unremarkable except as noted in Subjective Physical Exam Constitutional: WD/WN, vitals as above Eyes: + anicteric sclerae Respiratory: normal respiratory effort; no cough Auscultation: + crackles (few bases); no diminished lung sounds and no wheezes Cardiovascular: RRR, no murmur, no edema Gastrointestinal (Abdomen): normal bowel sounds, soft, nontender, no hepatosplenomegaly Musculoskeletal: Extremities: extremities normal to inspection; no cyanosis and no clubbing Skin: no rashes, warm and dry Neurologic: moves all extremities and awake; no focal motor deficits and not confused Psychiatric: A+Ox3, euthymic affect Results & Data Results & Data ([facility]) Vital Signs (Past 12 Hours) Vital Signs Temp Pulse Pulse Pulse Resp BP Pulse Ox 06/29/21 16:39 36.3 C L 77 20 106/72 90 06/29/21 16:00 74 06/29/21 11:31 36.6 C 82 18 99/68 L 94 06/29/21 08:00 76 06/29/21 07:42 94 H 18 89 L 06/29/21 07:29 36.6 C 84 20 94/57 L 90 PG Care Time/CCT Total # of Minutes Spent Total Time Spent with Patient: Total time spent is greater than 50% in coordination of care (as documented) at patient's floor/unit and/or counseling patient: Coding Level of Care Code 10975 Subseq Hosp Care Lvl 2 Diagnoses COVID-19 U07.1 Acute respiratory failure with hypoxia J96.01 Pulmonary emboli I26.99 GERD (gastroesophageal reflux disease) K21.9 Diabetes E11.9 CAD (coronary artery disease) I25.10 Hypomagnesemia E83.42 Metabolic acidosis E87.2 Hyponatremia E87.1 Hypotension I95.9
[2021-06-29] MEDS: PANTOprazole 40 MG TAB PO SCH (21:27)
[2021-06-29] MEDS: INSULIN GLARGINE SOLOSTAR 100 UNITS/ML 3 ML PEN SC SCH (21:39)
[2021-06-30] MEDS: CEFEPIME 2,000 MG in SYRINGE 0 ML IV SCH (04:38)
[2021-06-30] MEDS: ALBUT/IPRATROP 3MG/0.5MG NEB 3 ML VIAL NEB SCH (07:26)
[2021-06-30] MEDS: SODIUM CHLOR 7% 4 ML NEB NEB SCH (07:27)
[2021-06-30] MEDS: INSULIN ASPART PER UNIT SC SCH ×4 (08:12→21:48)
[2021-06-30] MEDS: dexAMETHasone 6 MG in SYRINGE 0 ML IV SCH ×2 (08:28→21:48)
[2021-06-30] MEDS: ASPIRIN 81 MG ECTAB PO SCH (08:29)
[2021-06-30] MEDS: DOXYCYCLINE HYCLATE 100 MG CAP PO SCH ×2 (08:29→21:40)
[2021-06-30] MEDS: carvediloL 6.25 MG TAB PO SCH (08:29)
[2021-06-30] MEDS: DOCUSATE SODIUM/SENNA 50/8.6MG TAB PO SCH (08:30)
[2021-06-30] MEDS: RIVAROXABAN 15 MG TAB PO SCH ×2 (08:30→21:39)
[2021-06-30] MEDS: POLYETHYLENE (MIRALAX) 17 GM PACK PO SCH (08:30)
[2021-06-30] MEDS: guaiFENesin 600 MG TABCR PO SCH ×2 (08:30→21:39)
[2021-06-30] MEDS: HYDROXYCHLOROQUINE SULFATE 200 MG TAB PO SCH ×2 (08:31→21:40)
[2021-06-30] MEDS: ADVANCED PROBIOTIC 1250 MG CAPSULE PO SCH (08:31)
[2021-06-30] MEDS: MAGNESIUM OXIDE 400 MG TAB PO SCH ×2 (08:32→21:37)
[2021-06-30] MEDS: INSULIN GLARGINE SOLOSTAR 100 UNITS/ML 3 ML PEN SC SCH ×2 (08:49→18:01)
[2021-06-30] MEDS: METOPROLOL SUCC 25MG EXT REL TAB PO SCH ×2 (10:28→21:38)
[2021-06-30] MEDS ORDERED: ALBUT/IPRATROP 3MG/0.5MG NEB 3 ML VIAL NEB PRN (10:36)
--- NOTE | 2021-06-30 12:11 | Pharmacy Report ---
Pharmacy Glycemic Short Note 2 - Date of Service June 30, 2021 - Glycemic Short BSG Results (Last 24 hours): 06/29/21 06/29/21 06/30/21 16:35 21:14 07:41 POC Glucose 162 H 128 H 138 H 06/30/21 11:21 POC Glucose 269 H OUTPATIENT ANTIDIABETIC REGIMEN: * Metformin 1000 mg PO BIDM * Jardiance 10 mg PO qAM * Trulicity 1.5 mg SC weekly (Sundays) * HbA1c 7.6% (06/19/21) ASSESSMENT: 06/30/21: * Elan received 64 units of insulin yesterday (15 units NPH, 10 units Lantus, 39 units Novolog) * Patient was switched to Lantus last evening. Due to slow onset, I suspect patient may remain hyperglycemic the remainder of today. Will order evening dose to be administered with dinner rather than HS. * Continues on dexamethasone IV BID - tighten carb coverage due to persistent mealtime hyperglycemia 06/29/21 * Patient received total of 39 units of insulin yesterday, of which 15 units were NPH to cover dexamethasone 6 mg iv daily * Provider now changing to dexamethasone 6 mg iv bid - will plan to private branch exchange service adviser to Lantus to provide longer acting coverage as I anticipate BSGs to trend up with increase in steroids 06/28/21 * BSGs were [phone] mg/dL yesterday and 126 mg/dL fasting this morning. * 15 units of NPH given this am with dexamethasone 6mg IV dose- increased from 8 units from previous days due to uncontrolled BSGs. * Patient received 38 units of insulin yesterday- 8 units basal and 30 units bolus. * After adjusting CF from 30 to 25 and CR from 12 to 7, patients lunch time is still 232. Will evaluate the rest of the day and make adjustment tomorrow morning if meal times are still high. 06/27/21 * Pharmacy signed off consult 06/23, reconsulted 06/27 * Patient restarted Dexamethasone IV on 06/24, blood sugars elevated throughout the day d/t steroid induced hyperglycemia * Patient was started on NPH with Dexamethasone on 06/24 at 8 units, likely insufficient dosing, will increase for tomorrow * Patient also requires tighter CF/CR while on steroids, tighten starting with dinner today 06/22 * Blood sugars at goal, dropped to 80mg/dl prior to dinner, will loosen CR to prevent hypoglycemia * Patient received no basal insulin yesterday, fasting 107mg/dl this morning, no basal needed anymore, off steroids (last dose 06/20) 06/20 * BSGs much improved yesterday, ranging 98-155 mg/dL * Final dose of dexamethasone 6 mg IV daily given today - NPH will be discontinued after today's dose * Lunch BSG of 85 mg/dL, will loosen Novolog parameters now that steroids are discontinued * Possible discharge home tomorrow 06/19 * BM is a 61 year old male admitted on 06/11/21 with COVID-19 pneumonia * Pertinent PMH includes CAD (hx of [place] in 2008), active PE, GERD * Patient intermittently hyperglycemic during admission, likely related to IV dexamethasone * Pharmacy consulted yesterday evening for BSG > 300 mg/dL * Will add conservative NPH with IV dexamethasone and tighten Novolog parameters PLAN FOR INPATIENT GLYCEMIC CONTROL: * Hold outpatient oral diabetes medications * Basal insulin * Lantus 10-20 units bid * Bolus insulin - tighten carb coverage * NovoLog per scale ACHS or Q6hrs while NPO * Goal Range: Low 110 mg/dL - High 140 mg/dL * Correction Factor: 20 mg/dL/unit * Nutritional / Prandial insulin per carb ratio of 1 unit per 4 grams CHO consumed PLAN FOR DISCHARGE: * HbA1c of 7.6% is slightly above goal of less than 7%, but reasonable to discharge with current outpatient regimen * Patient currently on recommended antidiabetic medications (SGLT2 inhibitor + GLP-1 RA) given ASCVD (hx of PR) * Support Patient Self-Management * Healthy Lifestyle (diet and exercise) * Disease self-management (SMBG) * Prevention of complications (BP, Lipid goals, Immunizations) * Consider outpatient Diabetes Self-Management Education & Support
[2021-06-30] MEDS ORDERED: Nursing to Pharmacy Communication SCH (17:30)
[2021-06-30] MEDS: MELATONIN 3 MG TAB PO PRN (21:38)
[2021-06-30] MEDS: PANTOprazole 40 MG TAB PO SCH (21:39)
--- NOTE | 2021-07-01 00:30 | Hospitalist Progress Note ---
Date of Service June 30, 2021 Assessment & Plan (1) COVID-19: Plan: Unvaccinated Covid-19 pneumonia Elevated CRP of 18.92 on admission, trended down to 3-4, but then back up to 14 after being off of steroids for 3 days Patient reports recently having the flu in April, feels like he never quite recovered. 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 Completed a 14-day course of baricitinib 4mg daily continue flutter valve, incentive spirometer prone as much as possible avoid lasix due to hypotensive episode - no role for Remdesevir given prolonged course prior to admission - started Cefepime and doxy on 06/25 due to worsening clinical status although procalcitonin remain negative x 5 day course (7 days for doxy, switch to oral today), given symptomatic improvement will continue this -Continue on nasal saline to see if this helps with passage of O2 through nostrils -continue Mucinex 1200mg po bid Can only discharge once he is requiring 6 L or less via nasal cannula with exertion Will repeat his two-step walk test prior to discharge -informally he can manage 1.5 minutes at the present time (2) Acute respiratory failure with hypoxia: Plan: 2/2 covid PNA as above Does have multiple bilateral subsegmental PEs but these are not contributing to his hypoxia With slight increased oxygen requirement at rest on 06/24, likely secondary to mucous plugging-no evidence of DVT clinically and I do not suspect new PE continue supplemental O2 and wean off as tolerated steroids Stopped DuoNebs and normal saline nebulizers as no longer having symptomatic benefit from these. Can use DuoNebs as needed. Aim O2 sats > 90% (3) Pulmonary emboli: Plan: as above, multiple bilat subsegmental PEs on CTA CHest they are very small, nothing central, doubt that they are contributing to hypoxemia Xarelto 15mg BID x 3 weeks then 20mg daily starting on 07/02 Recommend 3 months of anticoagulation proBNP and troponin both negative, hemodynamically stable-no need for echocardiogram Checked venous Dopplers--> negative. If had bleeding issues, would be ok to stop anticoagulation (4) GERD (gastroesophageal reflux disease): Plan: Chronic. Well controlled -Continue Protonix 40mg po daily (5) Diabetes: Plan: Blood sugar now with hyperglycemia due to steroids being restarted HgbA1C 7.6% -Continue to hold Metformin, Trulicity, and Jardiance but can restart these upon discharge -Continue NovoLog supplemental insulin -Pharmacy consulted for ongoing glycemic management in setting of dexamethasone use (6) CAD (coronary artery disease): Plan: With a h/o KS in 2008, a total of 11 stents since that time, most recent in 10/2017 No cardiac issues ie angina or exercise intolerance prior to admission Discussed need for anticoagulation with his Medical Assistant, Dr. Edu Yost, at [facility]--> ok to dc Plavix to avoid triple tx -given continued hypotension will switch carvedilol to metoprolol succinate; this can be uptitrated as needed but will start with 25 mg p.o. twice daily on Repatha for cholesterol, administered on 06/13 and 06/27 (7) Hypomagnesemia: Plan: Replace as needed, started on Mg Ox 400mg PO BID as continuously low (8) Metabolic acidosis: Plan: resolved (9) Hyponatremia: Plan: Resolved (10) Hypotension: Plan: BPs 80s systolic, asymptomatic, occurred after restarting ACEi at a lower dose than home dose. Occurred again after IV lasix given as above dcd lisinopril Switch carvedilol to metoprolol succinate 25 mg p.o. twice daily -this should allow up titration to improve his heart rate and is better for his Raynaud's disease. Plan: Faye Ugarte Code - Full per discussion with patient Dispo - continue to wean oxygen, go home once down to no more than 6 L nasal cannula with exertion, informally lasting 1.5 minutes Admission and Anticipated Discharge Date Admission Date: June 11, 2021 Subjective Mild improvement in shortness of breath and hypoxia daily. No significant benefit from duonebs or NSS neb. Hypotensive this morning although no lightheadedness associated with this and throughout hospitalization sBP occasion ally drop below 90. Informal 2 step today on 6LPM O2 lasted for 1.5 minutes. Review of Systems Review of Systems: All systems reviewed & are unremarkable except as noted in Subjective Physical Exam Constitutional: WD/WN, vitals as above Eyes: + anicteric sclerae Respiratory: normal respiratory effort; no cough Auscultation: + diminished lung sounds (left base) Cardiovascular: Rate/Rhythm: regular rhythm and + tachycardic Extremities: no pedal edema Gastrointestinal (Abdomen): normal bowel sounds, soft, nontender, no hepatosplenomegaly Skin: no rashes, warm and dry Neurologic: moves all extremities and awake; not confused Psychiatric: A+Ox3, euthymic affect Results & Data Results & Data ([facility]) Vital Signs (Past 12 Hours) Vital Signs Temp Pulse Pulse Pulse Resp BP BP 06/30/21 23:09 36.7 C 85 18 106/64 06/30/21 19:48 36.6 C 88 18 101/67 06/30/21 15:43 36.7 C 78 16 95/66 L 06/30/21 15:29 89 Pulse Ox 06/30/21 23:09 94 06/30/21 19:48 86 L 06/30/21 15:43 92 06/30/21 15:29 PG Care Time/CCT Total # of Minutes Spent Total Time Spent with Patient: Total time spent is greater than 50% in coordination of care (as documented) at patient's floor/unit and/or counseling patient: Coding Level of Care Code 47710 Subseq Hosp Care Lvl 2 Diagnoses COVID-19 U07.1 Acute respiratory failure with hypoxia J96.01 Pulmonary emboli I26.99 GERD (gastroesophageal reflux disease) K21.9 Diabetes E11.9 CAD (coronary artery disease) I25.10 Hypomagnesemia E83.42 Metabolic acidosis E87.2 Hyponatremia E87.1 Hypotension I95.9
[2021-07-01] MEDS: DOXYCYCLINE HYCLATE 100 MG CAP PO SCH ×2 (08:09→22:03)
[2021-07-01] MEDS: METOPROLOL SUCC 25MG EXT REL TAB PO SCH ×3 (08:10→21:06)
[2021-07-01] MEDS: RIVAROXABAN 15 MG TAB PO SCH ×2 (08:10→21:07)
[2021-07-01] MEDS: ASPIRIN 81 MG ECTAB PO SCH (08:11)
[2021-07-01] MEDS: guaiFENesin 600 MG TABCR PO SCH ×2 (08:11→21:06)
[2021-07-01] MEDS: HYDROXYCHLOROQUINE SULFATE 200 MG TAB PO SCH ×2 (08:11→21:05)
[2021-07-01] MEDS: ADVANCED PROBIOTIC 1250 MG CAPSULE PO SCH (08:12)
[2021-07-01] MEDS: MAGNESIUM OXIDE 400 MG TAB PO SCH ×2 (08:12→21:07)
[2021-07-01] MEDS: INSULIN GLARGINE SOLOSTAR 100 UNITS/ML 3 ML PEN SC SCH ×2 (08:13→20:48)
[2021-07-01] MEDS: INSULIN ASPART PER UNIT SC SCH ×4 (08:16→20:47)
[2021-07-01] MEDS: DOCUSATE SODIUM/SENNA 50/8.6MG TAB PO SCH (08:29)
[2021-07-01] MEDS: POLYETHYLENE (MIRALAX) 17 GM PACK PO SCH (08:29)
[2021-07-01] MEDS: dexAMETHasone 6 MG in SYRINGE 0 ML IV SCH ×2 (08:33→21:08)
[2021-07-01] MEDS ORDERED: POLYETHYLENE (MIRALAX) 17 GM PACK PO PRN (09:07)
[2021-07-01] MEDS ORDERED: DOCUSATE SODIUM/SENNA 50/8.6MG TAB PO PRN (09:07)
--- NOTE | 2021-07-01 09:09 | Hospitalist Progress Note ---
Date of Service July 01, 2021 Assessment & Plan (1) COVID-19: Plan: Unvaccinated Covid-19 pneumonia Elevated CRP of 18.92 on admission, trended down to 3-4, but then back up to 14 after being off of steroids for 3 days Patient reports recently having the flu in April, feels like he never quite recovered. 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 Will continue for total 10 days BID then daily for 10 days. Completed a 14-day course of baricitinib 4mg daily continue flutter valve, incentive spirometer prone as much as possible avoid lasix due to hypotensive episode - no role for Remdesevir given prolonged course prior to admission - started Cefepime and doxy on 06/25 due to worsening clinical status although procalcitonin remain negative x 5 day course (7 days for doxy, switch to oral today), given symptomatic improvement will continue this -Continue on nasal saline to see if this helps with passage of O2 through nostrils -continue Mucinex 1200mg po bid Can only discharge once he is requiring 6 L or less via nasal cannula with exertion Will repeat his two-step walk test prior to discharge -informally he can manage 1.5 minutes at the present time (2) Acute respiratory failure with hypoxia: Plan: 06/16 osvaldo PNA as above Does have multiple bilateral subsegmental PEs but these are not contributing to his hypoxia With slight increased oxygen requirement at rest on 06/24, likely secondary to mucous plugging-no evidence of DVT clinically and I do not suspect new PE continue supplemental O2 and wean off as tolerated steroids Stopped DuoNebs and normal saline nebulizers as no longer having symptomatic benefit from these. Can use DuoNebs as needed. Aim O2 sats > 90% (3) Pulmonary emboli: Plan: as above, multiple bilat subsegmental PEs on CTA CHest they are very small, nothing central, doubt that they are contributing to hypoxemia Xarelto 15mg BID x 3 weeks then 20mg daily starting on 07/02 Recommend 3 months of anticoagulation proBNP and troponin both negative, hemodynamically stable-no need for echocardiogram Checked venous Dopplers--> negative. If had bleeding issues, would be ok to stop anticoagulation (4) GERD (gastroesophageal reflux disease): Plan: Chronic. 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 Edu Yost, at [facility] Presby--> ok to dc Plavix to avoid triple tx -given continued hypotension will switch carvedilol to metoprolol succinate; this can be uptitrated as needed but will start with 25 mg p.o. twice daily on Repatha for cholesterol, administered on 06/13 and 06/27 (7) Hypomagnesemia: Plan: Replace as needed, started on Mg Ox 400mg PO BID as continuously low (8) Metabolic acidosis: Plan: resolved (9) Hyponatremia: Plan: Resolved (10) Hypotension: Plan: BPs 80s systolic, asymptomatic, occurred after restarting ACEi at a lower dose than home dose. Occurred again after IV lasix given as above dcd lisinopril Switch carvedilol to metoprolol succinate 25 mg p.o. twice daily -uptitrate this to 3 times daily today Plan: Faye Ugarte Code - Full per discussion with patient Dispo - continue to wean oxygen, go home once down to no more than 6 L nasal cannula with exertion, informally lasting 1.5 minutes Admission and Anticipated Discharge Date Admission Date: June 11, 2021 Subjective Blood pressure improved on metoprolol compared to carvedilol. No significant change in symptoms. He is trying inform needs a past 2 step with 5 L of oxygen so that when he takes the formal two-step test he is able to pass. He is able to manage about 1 minutes on 5 L. After stopping nebulizers he has noticed no worsening in his shortness of breath. Feels the dexamethasone at night has been helpful. Very slowly progressing however hopeful if he has no further setbacks he will be able to be discharged next week. Very motivated. Oxygen saturations improved significantly proning -very compliant with this. Review of Systems Review of Systems: All systems reviewed & are unremarkable except as noted in Subjective Physical Exam Constitutional: WD/WN, vitals as above Eyes: + anicteric sclerae Respiratory: normal respiratory effort; no cough Auscultation: + diminished lung sounds (left base); no wheezes Cardiovascular: Rate/Rhythm: regular rhythm and + tachycardic Extremities: no pedal edema Skin: no rashes, warm and dry Neurologic: moves all extremities and awake; not confused Psychiatric: A+Ox3, euthymic affect Results & Data Results & Data ([facility]) Vital Signs (Past 12 Hours) Vital Signs Temp Pulse Pulse Resp BP Pulse Ox 07/01/21 08:25 36.4 C L 105 H 25 H 113/67 89 L 07/01/21 04:10 36.5 C 74 18 116/71 96 06/30/21 23:09 36.7 C 85 18 106/64 94 PG Care Time/CCT Total # of Minutes Spent Total Time Spent with Patient: Total time spent is greater than 50% in coordination of care (as documented) at patient's floor/unit and/or counseling patient: Coding Level of Care Code 46372 Subseq Hosp Care Lvl 2 Diagnoses COVID-19 U07.1 Acute respiratory failure with hypoxia J96.01 Pulmonary emboli I26.99 GERD (gastroesophageal reflux disease) K21.9 Diabetes E11.9 CAD (coronary artery disease) I25.10 Hypomagnesemia E83.42 Metabolic acidosis E87.2 Hyponatremia E87.1 Hypotension I95.9
--- NOTE | 2021-07-01 09:53 | XRay Report ---
XR chest 1V portable CLINICAL HISTORY: Hypoxia, COVID TECHNIQUE: Single frontal radiograph of the chest was obtained. Comparison: Comparison is made to chest one view 06/24/2021 FINDINGS: No lines and tubes are seen. The cardiomediastinal silhouette is obscured. Lungs are underinflated. M ultifocal airspace opacities are seen. No evidence of pleural effusion or pneumothorax. IMPRESSION: Findings compatible with multifocal pneumonia. This is not significantly changed from prior ACT 112: Negative or not required by law. Electronically signed by: Cem Wadsworth M.D. 07/01/2021 9:52 AM
[2021-07-01] MEDS: PANTOprazole 40 MG TAB PO SCH (21:05)
[2021-07-02 06:53] LABS: Basophils # (auto) 0.01 K/uL (0-0.2); Basophils % (auto) 0.1 %; Hemoglobin 12.8 g/dL (14.0-18.0); Immature Granulocytes # (auto) 0.29 K/uL (0.00-0.02); Immature Granulocytes % (auto) 1.9 %; Lymphocytes # (auto) 0.93 K/uL (1.2-3.4); Lymphocytes % (auto) 6.2 %; Mean Corpuscular Hemoglobin 29.9 pg (25-34); Mean Corpuscular Hgb Conc 33.7 g/dL (32-36); Mean Corpuscular Volume 88.8 fL (80-100); Mean Platelet Volume 10.7 fL (7.4-10.4); Monocytes # (auto) 0.78 K/uL (0.11-0.59); Monocytes % (auto) 5.2 %; Neutrophils # (auto) 12.92 K/uL (1.4-6.5); Neutrophils % (auto) 86.6 %; Platelet Count 213 K/uL (130-400); RDW Coefficient of Variation 14.1 % (11.5-14.5); RDW Standard Deviation 45.2 fL (36.4-46.3); Red Blood Count 4.28 M/uL (4.7-6.1); White Blood Count 14.93 K/uL (4.8-10.8)
[2021-07-02 07:11] LABS: Albumin Globulin Ratio 0.9 (0.9-2); Albumin Level 3.1 gm/dl (3.4-5.0); BUN Creatinine Ratio 26.2 (10-20); Bilirubin,Total 0.4 mg/dl (0.2-1.0); Calcium 9.3 mg/dl (8.5-10.1); Creatinine Clr Calc Pharmacy 131.3 ml/min; Est GFR (African American) 124.9 ml/min; Est GFR (Non-African American) 107.8 ml/min; Globulin 3.4 gm/dl (2.5-4.0); Magnesium 1.6 mg/dl (1.7-2.4); Phosphorus 2.5 mg/dl (2.5-4.9); Potassium 4.3 mmol/L (3.5-5.1); Total Protein 6.5 gm/dl (6.0-8.3)
[2021-07-02] MEDS: INSULIN GLARGINE SOLOSTAR 100 UNITS/ML 3 ML PEN SC SCH ×2 (09:37→20:40)
[2021-07-02] MEDS: INSULIN ASPART PER UNIT SC SCH ×4 (09:37→20:40)
[2021-07-02] MEDS: METOPROLOL SUCC 50MG EXT REL TAB PO SCH ×2 (09:45→20:36)
[2021-07-02] MEDS: DOXYCYCLINE HYCLATE 100 MG CAP PO SCH (09:45)
[2021-07-02] MEDS: MAGNESIUM OXIDE 400 MG TAB PO SCH (09:47)
[2021-07-02] MEDS: guaiFENesin 600 MG TABCR PO SCH ×2 (09:47→20:44)
[2021-07-02] MEDS: HYDROXYCHLOROQUINE SULFATE 200 MG TAB PO SCH ×2 (09:48→20:44)
[2021-07-02] MEDS: ADVANCED PROBIOTIC 1250 MG CAPSULE PO SCH (09:57)
[2021-07-02] MEDS: dexAMETHasone 6 MG in SYRINGE 0 ML IV SCH ×2 (09:57→20:34)
[2021-07-02] MEDS: RIVAROXABAN 20 MG TAB PO SCH (09:57)
[2021-07-02] MEDS: ASPIRIN 81 MG ECTAB PO SCH (09:57)
--- NOTE | 2021-07-02 12:26 | Pharmacy Report ---
Pharmacy Glycemic Short Note 2 - Date of Service July 02, 2021 - Glycemic Short BSG Results (Last 24 hours): 07/01/21 07/01/21 07/02/21 16:12 20:05 06:12 Glucose 231 H POC Glucose 185 H 124 H 07/02/21 07/02/21 07:28 11:36 Glucose POC Glucose 184 H 136 H OUTPATIENT ANTIDIABETIC REGIMEN: * Metformin 1000 mg PO BIDM * Jardiance 10 mg PO qAM * Trulicity 1.5 mg SC weekly (Sundays) * HbA1c 7.6% (06/19/21) ASSESSMENT: 07/02/21: * Elan received 89 units of insulin yesterday (30 units Lantus, 59 units Novolog). He remains on dexamethasone 6 mg IV q12h * Fasting BSG is above goal but trending downward after increase in Lantus. Anticipate patient will require ~40 units/day of basal while on high dose steroid * Post prandial BSGs are acceptable. No change to novolog at this time. * Of note, provider plans to resume home anti-diabetic medications later today (non-form, patient to supply). Will need to back off insulin doses with these additional agents on board. 06/30/21: * Elan received 64 units of insulin yesterday (15 units NPH, 10 units Lantus, 39 units Novolog) * Patient was switched to Lantus last evening. Due to slow onset, I suspect patient may remain hyperglycemic the remainder of today. Will order evening dose to be administered with dinner rather than HS. * Continues on dexamethasone IV BID - tighten carb coverage due to persistent mealtime hyperglycemia 06/29/21 * Patient received total of 39 units of insulin yesterday, of which 15 units were NPH to cover dexamethasone 6 mg iv daily * Provider now changing to dexamethasone 6 mg iv bid - will plan to tire changer to Lantus to provide longer acting coverage as I anticipate BSGs to trend up with increase in steroids 06/28/21 * BSGs were [phone] mg/dL yesterday and 126 mg/dL fasting this morning. * 15 units of NPH given this am with dexamethasone 6mg IV dose- increased from 8 units from previous days due to uncontrolled BSGs. * Patient received 38 units of insulin yesterday- 8 units basal and 30 units bolus. * After adjusting CF from 30 to 25 and CR from 12 to 7, patients lunch time is still 232. Will evaluate the rest of the day and make adjustment tomorrow morning if meal times are still high. 06/27/21 * Pharmacy signed off consult 06/23, reconsulted 06/27 * Patient restarted Dexamethasone IV on 06/24, blood sugars elevated throughout the day d/t steroid induced hyperglycemia * Patient was started on NPH with Dexamethasone on 06/24 at 8 units, likely insufficient dosing, will increase for tomorrow * Patient also requires tighter CF/CR while on steroids, tighten starting with dinner today PLAN FOR INPATIENT GLYCEMIC CONTROL: * Hold outpatient oral diabetes medications * Basal insulin * Lantus 15-20 units BID (20 units for BSG 160 mg/dL or more) * Bolus insulin * NovoLog per scale ACHS or Q6hrs while NPO * Goal Range: Low 110 mg/dL - High 140 mg/dL * Correction Factor: 20 mg/dL/unit * Nutritional / Prandial insulin per carb ratio of 1 unit per 4 grams CHO consumed PLAN FOR DISCHARGE: * HbA1c of 7.6% is slightly above goal of less than 7%, but reasonable to discharge with current outpatient regimen * Patient currently on recommended antidiabetic medications (SGLT2 inhibitor + GLP-1 RA) given ASCVD (hx of AR) * Support Patient Self-Management * Healthy Lifestyle (diet and exercise) * Disease self-management (SMBG) * Prevention of complications (BP, Lipid goals, Immunizations) * Consider outpatient Diabetes Self-Management Education & Support
--- NOTE | 2021-07-02 18:25 | Hospitalist Progress Note ---
Date of Service July 02, 2021 Assessment & Plan (1) COVID-19: Plan: Unvaccinated Covid-19 pneumonia Elevated CRP of 18.92 on admission, trended down to 3-4, but then back up to 14 after being off of steroids for 3 days Patient reports recently having the flu in April, feels like he never quite recovered. 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 Will continue for total 10 days BID then daily for 10 days. Completed a 14-day course of baricitinib 4mg daily continue flutter valve, incentive spirometer prone as much as possible avoid lasix due to hypotensive episode - no role for Remdesevir given prolonged course prior to admission - started Cefepime and doxy on 06/25 due to worsening clinical status although procalcitonin remain negative x 5 day course (7 days for doxy, switch to oral today), given symptomatic improvement will continue this -Continue on nasal saline to see if this helps with passage of O2 through nostrils -continue Mucinex 1200mg po bid Can only discharge once he is requiring 6 L or less via nasal cannula with exertion Will repeat his two-step walk test prior to discharge -informally he can manage 1.5 minutes at the present time (2) Acute respiratory failure with hypoxia: Plan: 06/16 osvaldo PNA as above Does have multiple bilateral subsegmental PEs but these are not contributing to his hypoxia With slight increased oxygen requirement at rest on 06/24, likely secondary to mucous plugging-no evidence of DVT clinically and I do not suspect new PE continue supplemental O2 and wean off as tolerated steroids Stopped DuoNebs and normal saline nebulizers as no longer having symptomatic benefit from these. Can use DuoNebs as needed. Aim O2 sats > 90% (3) Pulmonary emboli: Plan: as above, multiple bilat subsegmental PEs on CTA CHest they are very small, nothing central, doubt that they are contributing to hypoxemia Xarelto 15mg BID x 3 weeks then 20mg daily starting on 07/02 Recommend 3 months of anticoagulation proBNP and troponin both negative, hemodynamically stable-no need for echocardiogram Checked venous Dopplers--> negative. If had bleeding issues, would be ok to stop anticoagulation (4) GERD (gastroesophageal reflux disease): Plan: Chronic. Well controlled -Continue Protonix 40mg po daily (5) Diabetes: Plan: Blood sugar now with hyperglycemia due to steroids being restarted HgbA1C 7.6% -Continue to hold Metformin. Trulicity, and Jardiance can be restarted tomorrow as discussed with pharmacy to see what his insulin requirement is on this -Pharmacy consulted for ongoing glycemic management in setting of dexamethasone use (6) CAD (coronary artery disease): Plan: With a h/o OR in 2008, a total of 11 stents since that time, most recent in 10/2017 No cardiac issues ie angina or exercise intolerance prior to admission Discussed need for anticoagulation with his Stick Welder, Dr. Edu Yost, at [facility]--> ok to dc Plavix to avoid triple tx -given continued hypotension will switch carvedilol to metoprolol succinate; this can be uptitrated as needed but will start with 25 mg p.o. twice daily on Repatha for cholesterol, administered on 06/13 and 06/27 (7) Hypomagnesemia: Plan: Increase Mg Ox 800mg PO BID as Mg still 1.6 (8) Metabolic acidosis: Plan: resolved (9) Hyponatremia: Plan: Resolved (10) Hypotension: Plan: BPs 80s systolic, asymptomatic, occurred after restarting ACEi at a lower dose than home dose. Occurred again after IV lasix given as above dcd lisinopril Switch carvedilol to metoprolol succinate 25 mg p.o. twice daily -uptitrated this with BP stable, start 100mg PO daily tomorrow Plan: Faye - Shanel Code - Full per discussion with patient Dispo - continue to wean oxygen, go home once down to no more than 6 L nasal cannula with exertion, informally lasting 1.5 minutes Admission and Anticipated Discharge Date Admission Date: June 11, 2021 Subjective Relatively stagnated on 3 L of oxygen per minute for the last few days. Much improved with proning. Not yet tried informally doing the 6-minute walk today. No fever or chills. Review of Systems Review of Systems: All systems reviewed & are unremarkable except as noted in Subjective Physical Exam Constitutional: WD/WN, vitals as above Eyes: + anicteric sclerae Neck: trachea midline, no thyromegaly Respiratory: normal respiratory effort; no cough Auscultation: lungs clear to auscultation bilaterally (while proning); no diminished lung sounds (while proning) and no wheezes Cardiovascular: RRR, no murmur, no edema Extremities: no pedal edema Gastrointestinal (Abdomen): normal bowel sounds, soft, nontender, no hepatosplenomegaly Musculoskeletal: Extremities: extremities normal to inspection; no cyanosis and no clubbing Skin: no rashes, warm and dry Neurologic: moves all extremities and awake; not confused Psychiatric: A+Ox3, euthymic affect Results & Data Results & Data ([facility]) Vital Signs (Past 12 Hours) Vital Signs Temp Pulse Pulse Resp BP Pulse Ox 07/02/21 16:13 36.7 C 90 20 104/71 92 07/02/21 08:00 69 07/02/21 07:39 36.6 C 74 18 109/75 89 L PG Care Time/CCT Total # of Minutes Spent Total Time Spent with Patient: Total time spent is greater than 50% in coordination of care (as documented) at patient's floor/unit and/or counseling patient: Coding Level of Care Code 30996 Subseq Hosp Care Lvl 2 Diagnoses COVID-19 U07.1 Acute respiratory failure with hypoxia J96.01 Pulmonary emboli I26.99 GERD (gastroesophageal reflux disease) K21.9 Diabetes E11.9 CAD (coronary artery disease) I25.10 Hypomagnesemia E83.42 Metabolic acidosis E87.2 Hyponatremia E87.1 Hypotension I95.9
[2021-07-02] MEDS: MAGNESIUM SULFATE / D5W 1 GM/100 ML BAG IV SCH (18:59)
[2021-07-02] MEDS: PANTOprazole 40 MG TAB PO SCH (20:45)
[2021-07-02] MEDS ORDERED: MAGNESIUM OXIDE 400 MG TAB PO SCH (21:00)
[2021-07-02] MEDS: MELATONIN 3 MG TAB PO PRN (22:51)
[2021-07-03 06:10] LABS: Hematocrit (blood only) 36.2 % (42-52); Hemoglobin 12.1 g/dL (14.0-18.0); Mean Corpuscular Hemoglobin 29.5 pg (25-34); Mean Corpuscular Hgb Conc 33.4 g/dL (32-36); Mean Corpuscular Volume 88.3 fL (80-100); Mean Platelet Volume 10.5 fL (7.4-10.4); Platelet Count 176 K/uL (130-400); RDW Coefficient of Variation 13.9 % (11.5-14.5); RDW Standard Deviation 44.4 fL (36.4-46.3); White Blood Count 13.72 K/uL (4.8-10.8)
[2021-07-03 06:47] LABS: BUN Creatinine Ratio 30.2 (10-20); Creatinine Clr Calc Pharmacy 127.1 ml/min; Est GFR (African American) 123.3 ml/min; Est GFR (Non-African American) 106.4 ml/min; Magnesium 1.8 mg/dl (1.7-2.4); Potassium 5.3 mmol/L (3.5-5.1)
--- NOTE | 2021-07-03 07:36 | Communication Note ---
Date of Service: July 03, 2021 MgOx PO changed from 800mg BID to 400mg BID per day team's note and level of Hypomag at the time (1.6, was also receiving IV repletion).
[2021-07-03] MEDS: dexAMETHasone 6 MG in SYRINGE 0 ML IV SCH ×2 (08:10→21:12)
[2021-07-03] MEDS: ASPIRIN 81 MG ECTAB PO SCH (08:11)
[2021-07-03] MEDS: MAGNESIUM OXIDE 400 MG TAB PO SCH ×2 (08:11→21:12)
[2021-07-03] MEDS: METOPROLOL SUCC 50MG EXT REL TAB PO SCH (08:12)
[2021-07-03] MEDS: RIVAROXABAN 20 MG TAB PO SCH (08:12)
[2021-07-03] MEDS: HYDROXYCHLOROQUINE SULFATE 200 MG TAB PO SCH ×2 (08:14→21:12)
[2021-07-03] MEDS: guaiFENesin 600 MG TABCR PO SCH ×2 (08:14→21:13)
[2021-07-03] MEDS: ADVANCED PROBIOTIC 1250 MG CAPSULE PO SCH (08:15)
[2021-07-03] MEDS: EMPAGLIFLOZIN PO SCH (08:17)
[2021-07-03] MEDS ORDERED: DULAGLUTIDE 1.5 MG/0.5 ML SQ SCH (09:00)
[2021-07-03] MEDS: INSULIN GLARGINE SOLOSTAR 100 UNITS/ML 3 ML PEN SC SCH ×2 (09:25→22:09)
[2021-07-03] MEDS: INSULIN ASPART PER UNIT SC SCH ×4 (09:25→21:15)
--- NOTE | 2021-07-03 13:34 | Pharmacy Report ---
Pharmacy Glycemic Short Note 2 - Date of Service July 03, 2021 - Glycemic Short BSG Results (Last 24 hours): 07/02/21 07/02/21 07/03/21 16:20 20:06 05:39 Glucose 202 H POC Glucose 235 H 165 H 07/03/21 07/03/21 07:38 11:27 Glucose POC Glucose 166 H 173 H OUTPATIENT ANTIDIABETIC REGIMEN: * Metformin 1000 mg PO BIDM * Jardiance 10 mg PO qAM * Trulicity 1.5 mg SC weekly (Sundays) * HbA1c 7.6% (06/19/21) ASSESSMENT: 07/03/21: * Non-formulary patient's own antidiabetic medications initiated today (i.e. Jardiance and Trulicity) * Will maintain current insulin parameters given elevated BSGs yesterday, but plan to loosen pending BSGs results today * Continues on dexamethasone 6 mg IV BID, giving Lantus BID with both doses 07/02/21: * Elan received 89 units of insulin yesterday (30 units Lantus, 59 units Novolog). He remains on dexamethasone 6 mg IV q12h * Fasting BSG is above goal but trending downward after increase in Lantus. Anticipate patient will require ~40 units/day of basal while on high dose steroid * Post prandial BSGs are acceptable. No change to novolog at this time. * Of note, provider plans to resume home anti-diabetic medications later today (non-form, patient to supply). Will need to back off insulin doses with these additional agents on board. 06/30/21: * Elan received 64 units of insulin yesterday (15 units NPH, 10 units Lantus, 39 units Novolog) * Patient was switched to Lantus last evening. Due to slow onset, I suspect patient may remain hyperglycemic the remainder of today. Will order evening dose to be administered with dinner rather than HS. * Continues on dexamethasone IV BID - tighten carb coverage due to persistent mealtime hyperglycemia 06/27/21 * Pharmacy signed off consult 06/23, reconsulted 06/27 * Patient restarted Dexamethasone IV on 06/24, blood sugars elevated throughout the day d/t steroid induced hyperglycemia * Patient was started on NPH with Dexamethasone on 06/24 at 8 units, likely insufficient dosing, will increase for tomorrow * Patient also requires tighter CF/CR while on steroids, tighten starting with dinner today PLAN FOR INPATIENT GLYCEMIC CONTROL: * Restart Jardiance 10 mg PO daily and Trulicity 1.5 mg SC weekly (supplied by patient) * Basal insulin * Lantus 15-20 units BID (see EHR for details) * Bolus insulin * NovoLog per scale ACHS or Q6hrs while NPO * Goal Range: Low 110 mg/dL - High 140 mg/dL * Correction Factor: 20 mg/dL/unit * Nutritional / Prandial insulin per carb ratio of 1 unit per 4.5 grams CHO consumed PLAN FOR DISCHARGE: * HbA1c of 7.6% is slightly above goal of less than 7%, but reasonable to discharge with current outpatient regimen * Patient currently on recommended antidiabetic medications (SGLT2 inhibitor + GLP-1 RA) given ASCVD (hx of [place]) * Support Patient Self-Management * Healthy Lifestyle (diet and exercise) * Disease self-management (SMBG) * Prevention of complications (BP, Lipid goals, Immunizations) * Consider outpatient Diabetes Self-Management Education & Support
--- NOTE | 2021-07-03 20:38 | Hospitalist Progress Note ---
Date of Service July 03, 2021 Assessment & Plan (1) COVID-19: Plan: Unvaccinated Covid-19 pneumonia Elevated CRP of 18.92 on admission, trended down to 3-4, but then back up to 14 after being off of steroids for 3 days Patient reports recently having the flu in April, feels like he never quite recovered. He also reports having PNA 7x in the past Has a h/o SLE on HQN D-dimer 29,000 after admission--> CTA Chest shows + bilateral numerous subsegmental upper lobe PEs and extensive PNA Was on Vapotherm for many days, since then was weaned down to 2LNC and was doing much better, sudden worsening ?mucus plugging after dexamethasone discontinued after 10 days Is ambulating frequently around the room Lasix trial on 06/22 caused hypotension and tachycardia in to the 20s, resolved with small bolus NS 250mL Does have Raynaud's noted on exam, difficult to pick remover POx, but now with forehead monitor Had mucous plugging incident causing worsening hypoxia in the morning of 06/24 Chest x-ray on 06/24 shows stable multifocal opacities compared to 1 week prior and PULM review thinks developing fibrosis and traction bronchiectasis Completed 10-day course of dexamethasone 6mg IV daily on 06/21, however given worsening CRP,oxygenation requirement--> restarted dexamethasone 6 mg IV once daily on 06/24, increase to twice daily dosing 06/29 due to lack of progression and much worse at night and first thing in the morning. Will continue for total 10 days BID then daily for 10 days. Completed a 14-day course of baricitinib 4mg daily continue flutter valve, incentive spirometer prone as much as possible avoid lasix due to hypotensive episode - no role for Remdesevir given prolonged course prior to admission - started Cefepime and doxy on 06/25 due to worsening clinical status although procalcitonin remain negative x 5 day course (7 days for doxy, switch to oral today), given symptomatic improvement will continue this -Continue on nasal saline to see if this helps with passage of O2 through nostrils -continue Mucinex 1200mg po bid Can only discharge once he is requiring 6 L or less via nasal cannula with exertion Will repeat his two-step walk test prior to discharge -informally he can manage 1-2 minutes at the present time may consider it tomorrow. (2) Acute respiratory failure with hypoxia: Plan: 06/16 osvaldo PNA as above Does have multiple bilateral subsegmental PEs but these are not contributing to his hypoxia With slight increased oxygen requirement at rest on 06/24, likely secondary to mucous plugging-no evidence of DVT clinically and I do not suspect new PE continue supplemental O2 and wean off as tolerated steroids Stopped DuoNebs and normal saline nebulizers as no longer having symptomatic benefit from these. Can use DuoNebs as needed. Aim O2 sats > 90% (3) Pulmonary emboli: Plan: as above, multiple bilat subsegmental PEs on CTA CHest they are very small, nothing central, doubt that they are contributing to hypoxemia Xarelto 15mg BID x 3 weeks then 20mg daily starting on 07/02 Recommend 3 months of anticoagulation proBNP and troponin both negative, hemodynamically stable-no need for echocardiogram Checked venous Dopplers--> negative. If had bleeding issues, would be ok to stop anticoagulation (4) GERD (gastroesophageal reflux disease): Plan: Chronic. Well controlled -Continue Protonix 40mg po daily (5) Diabetes: Plan: Blood sugar now with hyperglycemia due to steroids being restarted HgbA1C 7.6% -Continue to hold Metformin. Trulicity, and Jardiance can be restarted tomorrow as discussed with pharmacy to see what his insulin requirement is on this -Pharmacy consulted for ongoing glycemic management in setting of dexamethasone use (6) CAD (coronary artery disease): Plan: With a h/o AK in 2008, a total of 11 stents since that time, most recent in 10/2017 No cardiac issues ie angina or exercise intolerance prior to admission Discussed need for anticoagulation with his Shoe Coverer, Dr. Edu Yost, at [facility]--> ok to dc Plavix to avoid triple tx -given continued hypotension will switch carvedilol to metoprolol succinate; this can be uptitrated as needed but will start with 25 mg p.o. twice daily on Repatha for cholesterol, administered on 06/13 and 06/27 (7) Hypomagnesemia: Plan: Increase Mg Ox 800mg PO BID as Mg still 1.6 (8) Metabolic acidosis: Plan: resolved (9) Hyponatremia: Plan: Resolved (10) Hypotension: Plan: BPs 80s systolic, asymptomatic, occurred after restarting ACEi at a lower dose than home dose. Occurred again after IV lasix given as above dcd lisinopril Switch carvedilol to metoprolol succinate 25 mg p.o. twice daily -uptitrated this with BP stable, start 100mg PO daily tomorrow Plan: Ppx - Pablorelto Code - Full per discussion with patient Dispo - continue to wean oxygen, go home once down to no more than 6 L nasal cannula with exertion, informally lasting 1.5 minutes Admission and Anticipated Discharge Date Admission Date: June 11, 2021 Subjective Patient reports feeling frustrated in regards to his slow recovery. He reports he is very active normally and is trying his best to improve. He has been ambulating in the room, but notices that he gets short of breath within 2 minutes. He may consider a 2 step tomorrow. Review of Systems Review of Systems: All systems reviewed & are unremarkable except as noted in HPI & below Physical Exam Physical Exam: Constitutional: WD/WN, vitals as above Eyes: + anicteric sclerae Neck: trachea midline, no thyromegaly Respiratory: normal respiratory effort; no cough Auscultation: lungs clear to auscultation bilaterally (while proning); no diminished lung sounds (while proning) and no wheezes Cardiovascular: RRR, no murmur, no edema Extremities: no pedal edema Gastrointestinal (Abdomen): normal bowel sounds, soft, nontender, no hepatosplenomegaly Musculoskeletal: Extremities: extremities normal to inspection; no cyanosis and no clubbing Skin: no rashes, warm and dry Neurologic: moves all extremities and awake; not confused Psychiatric: A+Ox3, euthymic affect Results & Data Results & Data ([facility]) Vital Signs (Past 12 Hours) Vital Signs Temp Pulse Pulse Resp BP Pulse Ox 07/03/21 19:00 37.0 C 87 18 101/71 94 07/03/21 16:00 78 07/03/21 15:38 36.7 C 83 18 108/69 94 07/03/21 12:00 36.6 C 81 20 93 PG Care Time/CCT Total # of Minutes Spent Total Time Spent with Patient: Total time spent is greater than 50% in coordination of care (as documented) at patient's floor/unit and/or counseling patient: Coding Level of Care Code 76402 Subseq Hosp Care Lvl 2 Diagnoses COVID-19 U07.1 Acute respiratory failure with hypoxia J96.01 Pulmonary emboli I26.99 GERD (gastroesophageal reflux disease) K21.9 Diabetes E11.9 CAD (coronary artery disease) I25.10 Hypomagnesemia E83.42 Metabolic acidosis E87.2 Hyponatremia E87.1 Hypotension I95.9 Time Spent (min) 25
[2021-07-03] MEDS: PANTOprazole 40 MG TAB PO SCH (21:12)
[2021-07-03] MEDS: MELATONIN 3 MG TAB PO PRN (21:23)
[2021-07-04 06:54] LABS: Hematocrit (blood only) 37.2 % (42-52); Hemoglobin 12.3 g/dL (14.0-18.0); Mean Corpuscular Hemoglobin 29.6 pg (25-34); Mean Corpuscular Hgb Conc 33.1 g/dL (32-36); Mean Corpuscular Volume 89.6 fL (80-100); Mean Platelet Volume 10.8 fL (7.4-10.4); Nucleated RBC # (auto) 0.02 K/uL (0-0); Nucleated RBC % (auto) 0.2 %; Platelet Count 165 K/uL (130-400); RDW Coefficient of Variation 14.2 % (11.5-14.5); RDW Standard Deviation 46.4 fL (36.4-46.3); Red Blood Count 4.15 M/uL (4.7-6.1); White Blood Count 14.11 K/uL (4.8-10.8)
[2021-07-04 07:14] LABS: BUN Creatinine Ratio 35.2 (10-20); Creatinine Clr Calc Pharmacy 112.8 ml/min; Est GFR (African American) 117.4 ml/min; Est GFR (Non-African American) 101.3 ml/min; Potassium 4.9 mmol/L (3.5-5.1)
[2021-07-04] MEDS: ASPIRIN 81 MG ECTAB PO SCH (08:14)
[2021-07-04] MEDS: ADVANCED PROBIOTIC 1250 MG CAPSULE PO SCH (08:14)
[2021-07-04] MEDS: RIVAROXABAN 20 MG TAB PO SCH (08:14)
[2021-07-04] MEDS: MAGNESIUM OXIDE 400 MG TAB PO SCH (08:15)
[2021-07-04] MEDS: HYDROXYCHLOROQUINE SULFATE 200 MG TAB PO SCH (08:15)
[2021-07-04] MEDS: guaiFENesin 600 MG TABCR PO SCH (08:15)
[2021-07-04] MEDS: EMPAGLIFLOZIN PO SCH (08:16)
[2021-07-04] MEDS: dexAMETHasone 6 MG in SYRINGE 0 ML IV SCH (08:17)
[2021-07-04] MEDS: METOPROLOL SUCC 50MG EXT REL TAB PO SCH (08:18)
[2021-07-04] MEDS: INSULIN ASPART PER UNIT SC SCH ×2 (09:00→12:25)
[2021-07-04] MEDS: INSULIN GLARGINE SOLOSTAR 100 UNITS/ML 3 ML PEN SC SCH (09:01)
--- NOTE | 2021-07-04 20:13 | Discharge Summary ---
Date of Service July 04, 2021 Admission HPI Per Admitting Provider Elan Brush is a pleasant 61yo C male with history of DM presenting with Covid-19 PNA and hypoxia. Patient is vaccinated x 2 for Covid-19. He has not yet received his booster shot. He reports pre[place] influenza in April after which he had a persistent cough. Over the last 10 days he has had worsening cough and shortness of breath. He states that his lungs feel stiff and it is difficult to take a deep breath. Patient contacted his PCP with these complaints last week and was prescribed a Z-pack course of Azithromycin with no improvement. He was then started on Flovent and Cefuroxime. Patient reports having a single fever appx 5 days ago but has not been febrile since. He denies chest pain, nausea, vomiting. He had some mild diarrhea which has improved. No additional complaints at this time. Patient's oxygen saturation was reportedly 71% at home prior to arrival. Upon arrival to the ER patient was found to be tachypneic with RR of 24 saturating 83% on room air. He was placed on supplemental O2 by nasal cannula with mild improvement. Is presently on High Flow Nasal Cannula 40L/min, 40% FiO2. He reports feeling more comfortable, is breathing easier and is less tachypneic on current O2 settings. ER Course: HFNC, Dexamethasone 6mg IV, NSS x 1L Discharge Exam Constitutional: WD/WN, vitals as above Eyes: + anicteric sclerae Neck: trachea midline, no thyromegaly Respiratory: normal respiratory effort; no cough Auscultation: lungs clear to auscultation bilaterally (while proning); no diminished lung sounds (while proning) and no wheezes Cardiovascular: RRR, no murmur, no edema Extremities: no pedal edema Gastrointestinal (Abdomen): normal bowel sounds, soft, nontender, no hepatosplenomegaly Musculoskeletal: Extremities: extremities normal to inspection; no cyanosis and no clubbing Skin: no rashes, warm and dry Neurologic: moves all extremities and awake; not confused Psychiatric: A+Ox3, euthymic affect Discharge Data Allergies Allergy/AdvReac Type Severity Reaction Status Date / Time No Known Allergies Allergy Unverified 06/10/21 23:30 Ordered Studies 06/11/21 08:37 CT angio chest PE protocol Stat 06/11/21 13:[address] [facility] Urgent Hospital Course (1) COVID-19: Unvaccinated Covid-19 pneumonia Elevated CRP of 18.92 on admission, trended down to 3-4, but then back up to 14 after being off of steroids for 3 days Patient reports recently having the flu in April, feels like he never quite recovered. He also reports having PNA 7x in the past Has a h/o SLE on HQN D-dimer 29,000 after admission--> CTA Chest shows + bilateral numerous subsegmental upper lobe PEs and extensive PNA Was on Vapotherm for many days, since then was weaned down to 2LNC and was doing much better, sudden worsening ?mucus plugging after dexamethasone discontinued after 10 days Is ambulating frequently around the room Lasix trial on 06/22 caused hypotension and tachycardia in to the 20s, resolved with small bolus NS 250mL Does have Raynaud's noted on exam, difficult to parts picker POx, but now with forehead monitor Had mucous plugging incident causing worsening hypoxia in the morning of 06/24 Chest x-ray on 06/24 shows stable multifocal opacities compared to 1 week prior and PULM review thinks developing fibrosis and traction bronchiectasis Completed 10-day course of dexamethasone 6mg IV daily on 06/21, however given worsening CRP,oxygenation requirement--> restarted dexamethasone 6 mg IV once daily on 06/24, increase to twice daily dosing 06/29 due to lack of progression and much worse at night and first thing in the morning. Will continue for total 10 days BID then daily for 10 days. Completed a 14-day course of baricitinib 4mg daily continue flutter valve, incentive spirometer prone as much as possible avoid lasix due to hypotensive episode - no role for Remdesevir given prolonged course prior to admission - started Cefepime and doxy on 06/25 due to worsening clinical status although procalcitonin remain negative x 5 day course (7 days for doxy, switch to oral today), given symptomatic improvement will continue this -Continue on nasal saline to see if this helps with passage of O2 through nostrils -continue Mucinex 1200mg po bid Can only discharge once he is requiring 6 L or less via nasal cannula with exertion Will repeat his two-step walk test prior to discharge -informally he can manage 1-2 minutes at the present time may consider it tomorrow. (2) Acute respiratory failure with hypoxia: 06/16 covid PNA as above Does have multiple bilateral subsegmental PEs but these are not contributing to his hypoxia With slight increased oxygen requirement at rest on 06/24, likely secondary to mucous plugging-no evidence of DVT clinically and I do not suspect new PE continue supplemental O2 and wean off as tolerated steroids Stopped DuoNebs and normal saline nebulizers as no longer having symptomatic benefit from these. Can use DuoNebs as needed. Aim O2 sats > 90% (3) Pulmonary emboli: as above, multiple bilat subsegmental PEs on CTA CHest they are very small, nothing central, doubt that they are contributing to hypoxemia Xarelto 15mg BID x 3 weeks then 20mg daily starting on 07/02 Recommend 3 months of anticoagulation proBNP and troponin both negative, hemodynamically stable-no need for echocardiogram Checked venous Dopplers--> negative. If had bleeding issues, would be ok to stop anticoagulation (4) GERD (gastroesophageal reflux disease): Chronic. Well controlled -Continue Protonix 40mg po daily (5) Diabetes: Blood sugar now with hyperglycemia due to steroids being restarted HgbA1C 7.6% -Continue to hold Metformin. Trulicity, and Jardiance can be restarted tomorrow as discussed with pharmacy to see what his insulin requirement is on this -Pharmacy consulted for ongoing glycemic management in setting of dexamethasone use (6) CAD (coronary artery disease): With a h/o CT in 2008, a total of 11 stents since that time, most recent in 10/2017 No cardiac issues ie angina or exercise intolerance prior to admission Discussed need for anticoagulation with his Payroll And Benefits Coordinator, Dr. Edu Yost, at [facility] Presby--> ok to dc Plavix to avoid triple tx -given continued hypotension will switch carvedilol to metoprolol succinate; this can be uptitrated as needed but will start with 25 mg p.o. twice daily on Repatha for cholesterol, administered on 06/13 and 06/27 (7) Hypomagnesemia: Increase Mg Ox 800mg PO BID as Mg still 1.6 (8) Metabolic acidosis: resolved (9) Hyponatremia: Resolved (10) Hypotension: BPs 80s systolic, asymptomatic, occurred after restarting ACEi at a lower dose than home dose. Occurred again after IV lasix given as above dcd lisinopril Switch carvedilol to metoprolol succinate 25 mg p.o. twice daily -uptitrated this with BP stable, start 100mg PO daily tomorrow Ppx - Xarelto Code - Full per discussion with patient Dispo - continue to wean oxygen, go home once down to no more than 6 L nasal cannula with exertion, informally lasting 1.5 minutes Discharge Plan Discharge Items Patient Disposition: Home - Self-Care Reason For Visit: COVID-19, HYPOXIA Discharge Diagnosis: COVID-19 Activity: Resume your previous activity Non-emergency contact: Primary Care Provider Call non-emergency contact if: you have any medication questions Follow-up/Referrals: Jose Luis Grayson, [Primary Care Provider] - Diet: Carb Consistent or DM2 Addtl Attending Provider Instructions: You have been hospitalized for an acute medical problem. During your stay at [facility], we have made an effort to correct the problem that brought you to the hospital while keeping you as comfortable as possible. Medications were used to bring your condition under control and your discharge instructions will include directions for any medications you should take after leaving the hospital. Please make sure you see your Primary Care Provider as part of your follow up plan. You were hospitalized for COVID-19. Thankfully you are recovering and currently are on 2 liters at rest and 6 liters on ambulation. You will continue on a dexamethasone taper starting tomorrow. You completed your course of antibiotics. Recommend followup with PCP in 1-2 weeks Take xarelto with breakfast Pending Studies at Discharge: No Stand-Alone Forms: [facility], Work/School Release, Smoking Cessation Medications and DC Order Prescriptions: New metoprolol succinate 50 mg Tablet Extended Release 24 Hr 100 mg PO QAM Qty: 60 RF: 0 Xarelto 20 mg Tablet 20 mg PO DAILY Qty: 30 RF: 0 guaifenesin [Mucinex] 600 mg Tablet Extended Release 12hr 1,200 mg PO Q12 Qty: 30 RF: 0 dexamethasone 1 mg tablet 1 mg PO DAILY Qty: 72 RF: 0 Continued benzonatate 100 mg capsule 200 mg PO TID PRN (Reason: Cough) RF: 0 Flovent Diskus 100 mcg/actuation blister with device 1 inh INHALATION BID RF: 0 metformin 500 mg tablet extended release 24 hr 1,000 mg PO BID RF: 0 Trulicity 1.5 mg/0.5 mL pen injector 1.5 mg SUBCUT WK RF: 0 Repatha SureClick 140 mg/mL pen injector 140 mg SUBCUT .2XMONTHLY RF: 0 hydroxychloroquine 200 mg tablet 200 mg PO BID RF: 0 Jardiance 10 mg tablet 10 mg PO QAM RF: 0 pantoprazole 40 mg tablet,delayed release (DR/EC) 40 mg PO QPM RF: 0 icosapent ethyl 1 gram capsule 2 g PO BID RF: 0 aspirin 81 mg Tablet,Delayed Release (Dr/Ec) 81 mg PO QAM RF: 0 Discontinued cefuroxime axetil 500 mg tablet 500 mg PO BID RF: 0 carvedilol 6.25 mg tablet 6.25 mg PO BID RF: 0 lisinopril 20 mg tablet 20 mg PO QPM RF: 0 clopidogrel 75 mg tablet 75 mg PO QAM RF: 0 Discharge Orders: Discharge Order (Routine); Ordered 07/04/21 Ordered By: Alfred Lazcano/Other Patient Handouts: Managing Type 2 Diabetes Admission Data Admit Date/Time: 06/11/21 00:04 Attending Provider: Alfred Lockwood Admit Provider: Juli Thomas Primary Care Provider: Jose Luis Grayson Other Interventions: Discharge Summary Assessment (RN) Last Done: 07/04/21 15:15 Coding Diagnoses COVID-19 U07.1 Acute respiratory failure with hypoxia J96.01 Pulmonary emboli I26.99 GERD (gastroesophageal reflux disease) K21.9 Diabetes E11.9 CAD (coronary artery disease) I25.10 Hypomagnesemia E83.42 Metabolic acidosis E87.2 Hyponatremia E87.1 Hypotension I95.9
[2021-07-09] MEDS ORDERED: dexAMETHasone 6 MG in SYRINGE 0 ML IV SCH (09:00)
== END 2021-07-04 18:19 | disposition home or self-care (01) | DRG 177 ==
LOC: ED 20:51 → SUATTDRO 06-11 00:04 → 2S 06-11 00:04